=== PATIENT | male | born 1950 | race Caucasian/White ===

== ENCOUNTER → 2017-06-05 09:00 | Day surgery (SDC) | payer BC, OTHER, SELFPAY ==
[2017-06-05 09:16] VITALS: BP 119/77; PULSE 81; RESP 18; TEMP 36.6; O2SAT 96; BMI 33.0
--- NOTE | 2017-06-05 09:52 | HMH.PMPROC ---
- Procedure Date: 06/05/17 Time: 09:52 Anesthesiologist:: Celio Malloy MD Complications:: None Pre-procedure Diagnosis:: Degenerative disc disease of lumbar spine with lumbar radiculopathy symptoms Post-procedure Diagnosis:: Same Indications for Procedure:: This patient is a pleasant 67-year-old white male who we are seeing for low back pain with lumbar radicular symptoms. 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 We will do a lumbar epidural steroid injection under fluoroscopy today. Procedure Details:: Lumbar epidural steroid injection under fluoroscopy Informed consent was obtained and the risk and benefits of the procedure was explained to the patient. The patient was taken to the procedure room. The patient was placed prone on the procedure table. The patient was prepped and draped in sterile fashion. C-arm fluoroscopy was used to view the lumbar spine. Skin and subcutaneous tissues were anesthetized using lidocaine. I placed an 18-gauge epidural needle and advanced into the L4-L5 interspace using fluoroscopic guidance and [id number] to air. After confirmation of needle placement in the epidural space with dye I injected 2 mL of lidocaine 1.5% with Depo-Medrol 80 mg. Patient tolerated the procedure well with no complications. Plan and Disposition:: We will follow-up with him in 2 weeks. We will reevaluate his symptoms at that time
[2017-06-05 09:58] VITALS: BP 128/80; PULSE 77; RESP 20; O2SAT 95
[2017-06-05 09:59] VITALS: BP 131/78; PULSE 70; RESP 20; O2SAT 98
--- NOTE | 2017-06-05 10:08 | P.PCN_ITS ---
- Procedure Date: 06/05/17 Time: 09:52 Anesthesiologist:: Celio Malloy MD Complications:: None Pre-procedure Diagnosis:: Degenerative disc disease of lumbar spine with lumbar radiculopathy symptoms Post-procedure Diagnosis:: Same Indications for Procedure:: This patient is a pleasant 67-year-old white male who we are seeing for low back pain with lumbar radicular symptoms. 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 We will do a lumbar epidural steroid injection under fluoroscopy today. Procedure Details:: Lumbar epidural steroid injection under fluoroscopy Informed consent was obtained and the risk and benefits of the procedure was explained to the patient. The patient was taken to the procedure room. The patient was placed prone on the procedure table. The patient was prepped and draped in sterile fashion. C-arm fluoroscopy was used to view the lumbar spine. Skin and subcutaneous tissues were anesthetized using lidocaine. I placed an 18-gauge epidural needle and advanced into the L4-L5 interspace using fluoroscopic guidance and [id number] to air. After confirmation of needle placement in the epidural space with dye I injected 2 mL of lidocaine 1.5 % with Depo-Medrol 80 mg. Patient tolerated the procedure well with no complications. Plan and Disposition:: We will follow-up with him in 2 weeks. We will reevaluate his symptoms at that time
[2017-06-05 10:11] VITALS: BP 121/72; PULSE 88; RESP 18; O2SAT 100
== END ==
PROVIDERS: Family Provider Emergency Medicine; PCP Emergency Medicine; Visit Provider Nurse Anesthetist, Certified Registered
DX: M51.16 Intervertebral disc disorders with radiculopathy, lumbar region (principal)
CPT/HCPCS: 62323; J1040; Q9966

== ENCOUNTER 2017-06-16 10:27 | Emergency (ER) | payer BC, OTHER, SELFPAY ==
[2017-06-16 10:28] VITALS: BP 156/80; PULSE 76; RESP 18; TEMP 36.6; O2SAT 95; BMI 34.4; BMI 34.5
--- NOTE | 2017-06-16 10:29 | CT_ITS ---
CT Request head HISTORY: Right-sided facial droop ITS.REASON: stroke protocol, R facial droop ORDERING PHYSICIAN: Sindy Alba MD PATIENT AGE: 67 years COMPARISON: None TECHNIQUE: Axial images obtained without contrast. Brain and bone windows reviewed. FINDINGS: No midline shift, mass effect, intracranial hemorrhage, hydrocephalus, or extra-axial fluid collection is evident. Lucent lesion in the right posterior aspect of the frontal bone well-circumscribed probably benign. Follow-up may confirm stability. May represent, venous tuttle. No mastoid effusion. No sinus air-fluid levels.. IMPRESSION: 1. No acute intracranial finding. 2. There is no evidence of intracranial hemorrhage, focal mass, or acute territorial infarction. A negative CT does not exclude an acute CVA. A follow-up head CT or MRI is recommended if neurological symptoms persist
--- NOTE | 2017-06-16 10:29 | PC.NURSE ---
rad notified of ct head stroke protocol.
--- NOTE | 2017-06-16 10:32 | PC.NURSE ---
fsbs 94
--- NOTE | 2017-06-16 10:32 | PC.NURSE ---
pt to ct
--- NOTE | 2017-06-16 10:48 | PC.NURSE ---
contacted second floor to check on status of bed availability, stated no bed available at this time, having pt to discharge but none have left yet.
--- NOTE | 2017-06-16 10:49 | PC.NURSE ---
pt return to room at this time
[2017-06-16 10:56] VITALS: BP 133/87; PULSE 77; RESP 18; O2SAT 97
--- NOTE | 2017-06-16 11:00 | PC.NURSE ---
TESSA BOWENS at assessing pt at this time.
[2017-06-16 11:13] LABS: Alanine Aminotransferase 74 U/L (12-78); Albumin Level 3.5 gm/dL (3.4-5.0); Albumin/Globulin Ratio 0.9 (1.1-1.8); Alkaline Phosphatase 76 U/L (46-116); Anion Gap 11.1 mEq/L (5-15); Aspartate Amino Transferase 22 U/L (15-37); Bilirubin,Total 0.6 mg/dL (0.2-1.0); Blood Urea Nitrogen 30 mg/dL (7-18); Calcium 8.8 mg/dL (8.5-10.1); Carbon Dioxide 29 mmol/L (21.0-32.0); Chloride 103 mmol/L (98-107); Creatinine Clearance Estimated 94 mL/min (0-300); Creatinine,Serum 1.06 mg/dL (0.70-1.30); Estimated Glomerular Filt Rate 70 ml/min (>60); GFR (African American) 85 ML/MIN (>60); Globulin 3.8 gm/dl (1.3-3.2); Glucose 105 mg/dL (74-106); Potassium 4.1 mmoL/L (3.5-5.1); Sodium 139 mmol/L (136-145); Total Protein,Serum 7.3 gm/dL (6.4-8.2)
--- NOTE | 2017-06-16 11:15 | HMH.EDAMS ---
ED Disposition Clinical Impression: TIA (transient ischemic attack), Anterograde amnesia, Hypertension Disposition: Xfer Short-Term Hosp Condition on Discharge: Good Referrals: Bird Whitten MD [Primary Care Provider] - - Critical Care Critical Care Time: No Attestation: On 06/16/17, the high probability of a clinically significant, sudden or life threatening deterioration of the following system(s) required my full and direct attention, intervention and personal management. The time I documented below is in addition to time spent performing reported procedures but includes the following listed in this critical care notation. Medical Decision Making - Medical Records Medical records reviewed: Yes: I reviewed the patient's medical records. Vital Signs: 06/16/17 10:28 06/16/17 10:56 06/16/17 11:55 Temperature 97.8 F Temperature Source Oral Pulse Rate [Right Brachial] 76 77 72 Respiratory Rate 18 18 18 Blood Pressure [Right Arm] 156/80 133/87 141/87 Blood Pressure Mean [Right Arm] 105 102 105 Blood Pressure Source [Right Arm] Automatic Cuff Automatic Cuff Automatic Cuff Blood Pressure Position [Right Arm] Sitting Sitting Sitting 02 Sat by Pulse Oximetry 95 97 95 Oxygen Delivery Method Room Air Room Air Room Air 06/16/17 12:30 Temperature Temperature Source Pulse Rate [Right Brachial] 81 Respiratory Rate 18 Blood Pressure [Right Arm] 142/85 Blood Pressure Mean [Right Arm] 104 Blood Pressure Source [Right Arm] Automatic Cuff Blood Pressure Position [Right Arm] Sitting 02 Sat by Pulse Oximetry 94 L Oxygen Delivery Method Room Air - Lab Data Lab Results 06/16/17 10:40: WBC 11.8 H, RBC 5.28, Hgb 16.3, Hct 47.3, MCV 89.6, MCH 30.8, MCHC 34.4, RDW 13.1, Plt Count 217, MPV 8.5, Neut % (Auto) 79.5, Lymph % (Auto) 13.7, [place] % (Auto) 6.5, Eos % (Auto) 0.1, Baso % (Auto) 0.1, Neut # (Auto) 9.4 H, Lymph # (Auto) 1.6, [place] # (Auto) 0.8, Eos # (Auto) 0.0, Baso # (Auto) 0.0 06/16/17 10:40: Sodium 139, Potassium 4.1, Chloride 103, Carbon Dioxide 29, Anion Gap 11.1, BUN 30 H, Creatinine 1.06, Estimated Creat Clear 94, Estimated GFR 70, Est GFR ( Amer) 85, Glucose 105, Calcium 8.8, Total Bilirubin 0.6, AST 22, ALT 74, Alkaline Phosphatase 76, Total Protein 7.3, Albumin 3.5, Globulin 3.8 H, Albumin/Globulin Ratio 0.9 L 06/16/17 10:40: D-Dimer 102 06/16/17 10:40: Total Creatine Kinase 66, CK-MB (CK-2) 1.7, CK-MB (CK-2) Rel Index 2.6, Troponin I < 0.02 06/16/17 : Plasma/Serum Alcohol 0 Result diagrams: 06/16/17 10:40 06/16/17 10:40 Orders (Tests/Meds): ED MEDICATIONS Discontinued Medications Generic Name Dose Route Start Last Admin Trade Name Freq PRN Reason Stop Dose Admin Aspirin 324 mg 06/16/17 12:06 06/16/17 12:07 Aspirin 81mg Chewable Tablet PO 06/16/17 12:07 324 mg ONCE ONE Administration Sodium Chloride 1,000 mls @ 999 mls/hr 06/16/17 11:45 06/16/17 11:52 Sod Chlor 0.9% 1000ml Bag IV 06/16/17 12:45 999 mls/hr .Q1H1M [id number] Administration ORDERS Category Date Time Status CT head/brain wo con Routine Cat Scan 06/16/17 10:38 Taken Drug Screen,Urine Stat Lab 06/16/17 11:05 Ordered POC Glucose,Bedside Stat Lab 06/16/17 10:31 Ordered - CT Data CT Scan: Head Time Received: 11:[address] Reviewed: Yes: I have viewed the radiologist's interpretation Preliminary Findings: Normal/NAD Findings Narrative: MPRESSION: 1. No acute intracranial finding. 2. There is no evidence of intracranial hemorrhage, focal mass, or acute territorial infarction. A negative CT does not exclude an acute CVA. A follow-up head CT or MRI is recommended if neurological symptoms persist - Boo Inquiry Pt receiving controlled substance: No Boo was queried for this patient: No Medical Decision Making Narrative: Normal sinus rhythm 67/min baseline artifact nonspecific T-wave changes no acute finding. I did do another neurological reexamine for Mr. Lorenz, he remai
--- NOTE | 2017-06-16 11:18 | ED_ITS ---
ED Disposition Clinical Impression: TIA (transient ischemic attack), Anterograde amnesia, Hypertension Disposition: Xfer Short-Term Hosp Condition on Discharge: Good Referrals: Bird Whitten MD [Primary Care Provider] - - Critical Care Critical Care Time: No Attestation: On 06/16/17, the high probability of a clinically significant, sudden or life threatening deterioration of the following system(s) required my full and direct attention, intervention and personal management. The time I documented below is in addition to time spent performing reported procedures but includes the following listed in this critical care notation. Medical Decision Making - Medical Records Medical records reviewed: Yes: I reviewed the patient's medical records. Vital Signs: 06/16/17 10:28 06/16/17 10:56 06/16/17 11:55 Temperature 97.8 F Temperature Source Oral Pulse Rate [Right Brachial] 76 77 72 Respiratory Rate 18 18 18 Blood Pressure [Right Arm] 156/80 133/87 141/87 Blood Pressure Mean [Right Arm] 105 102 105 Blood Pressure Source [Right Arm] Automatic Cuff Automatic Cuff Automatic Cuff Blood Pressure Position [Right Arm] Sitting Sitting Sitting 02 Sat by Pulse Oximetry 95 97 95 Oxygen Delivery Method Room Air Room Air Room Air 06/16/17 12:30 Temperature Temperature Source Pulse Rate [Right Brachial] 81 Respiratory Rate 18 Blood Pressure [Right Arm] 142/85 Blood Pressure Mean [Right Arm] 104 Blood Pressure Source [Right Arm] Automatic Cuff Blood Pressure Position [Right Arm] Sitting 02 Sat by Pulse Oximetry 94 L Oxygen Delivery Method Room Air - Lab Data Lab Results 06/16/17 10:40: WBC 11.8 H, RBC 5.28, Hgb 16.3, Hct 47.3, MCV 89.6, MCH 30.8, MCHC 34.4, RDW 13.1, Plt Count 217, MPV 8.5, Neut % (Auto) 79.5, Lymph % (Auto) 13.7, [place] % (Auto) 6.5, Eos % (Auto) 0.1, Baso % (Auto) 0.1, Neut # (Auto) 9.4 H, Lymph # (Auto) 1.6, [place] # (Auto) 0.8, Eos # (Auto) 0.0, Baso # (Auto) 0.0 06/16/17 10:40: Sodium 139, Potassium 4.1, Chloride 103, Carbon Dioxide 29, Anion Gap 11.1, BUN 30 H, Creatinine 1.06, Estimated Creat Clear 94, Estimated GFR 70, Est GFR ( Amer) 85, Glucose 105, Calcium 8.8, Total Bilirubin 0.6 , AST 22, ALT 74, Alkaline Phosphatase 76, Total Protein 7.3, Albumin 3.5, Globulin 3.8 H, Albumin/Globulin Ratio 0.9 L 06/16/17 10:40: D-Dimer 102 06/16/17 10:40: Total Creatine Kinase 66, CK-MB (CK-2) 1.7, CK-MB (CK-2) Rel Index 2.6, Troponin I < 0.02 06/16/17 : Plasma/Serum Alcohol 0 Result diagrams: 06/16/17 10:40 06/16/17 10:40 Orders (Tests/Meds): ED MEDICATIONS Discontinued Medications Generic Name Dose Route Start Last Admin Trade Name Freq PRN Reason Stop Dose Admin Aspirin 324 mg 06/16/17 12:06 06/16/17 12:07 Aspirin 81mg Chewable Tablet PO 06/16/17 12:07 324 mg ONCE ONE Administration Sodium Chloride 1,000 mls @ 999 mls/hr 06/16/17 11:45 06/16/17 11:52 Sod Chlor 0.9% 1000ml Bag IV 06/16/17 12:45 999 mls/hr .Q1H1M ZULEIKA Administration ORDERS Category Date Time Status CT head/brain wo con Routine Cat Scan 06/16/17 10:38 Taken Drug Screen,Urine Stat Lab 06/16/17 11:05 Ordered POC Glucose,Bedside Stat Lab 06/16/17 10:31 Ordered - CT Data CT Scan: Head
[2017-06-16 11:54] LABS: Basophils % 0.1 % (0.1-2.0); Eosinophils % 0.1 % (0.1-12.0); Hematocrit 47.3 % (42.0-52.0); Hemoglobin 16.3 g/dL (14.1-18.0); Lymphocytes # 1.6 K/mm3 (0.7-4.5); Lymphocytes % 13.7 K/mm3 (10-50); Mean Corpuscular HGB Conc 34.4 g/dL (31.8-35.4); Mean Corpuscular Hemoglobin 30.8 pg (27.0-31.2); Mean Corpuscular Volume 89.6 fl (80-94); Mean Platelet Volume 8.5 fl (7.4-10.4); Monocytes # 0.8 K/mm3 (0.1-1.0); Monocytes % 6.5 % (1.7-9.3); Neutrophils # 9.4 K/mm3 (1.8-7.8); Neutrophils % 79.5 % (37.0-80.0); Platelet Count 217 K/mm3 (142-424); Red Blood Count 5.28 M/mm3 (4.60-6.20); Red Cell Distribution Width 13.1 % (11.5-17.5); White Blood Count 11.8 K/mm3 (4.8-10.8)
[2017-06-16 11:55] VITALS: BP 141/87; PULSE 72; RESP 18; O2SAT 95
[2017-06-16 11:58] LABS: D-Dimer 102 (0-400)
[2017-06-16 11:59] LABS: Ethyl Alcohol 0 mg/dL (0-99)
[2017-06-16 11:59] LABS: CKMB Relative Index 2.6 U/L (0-4.0); Creatine Kinase 66 U/L (39-308); Creatine Kinase MB 1.7 mg/ml (0.0-3.6); Troponin I < 0.02 ng/ml (0.00-0.06)
[2017-06-16 12:30] VITALS: BP 142/85; PULSE 81; RESP 18; O2SAT 94
--- NOTE | 2017-06-16 13:55 | PC.NURSE ---
Attempted to contact Dr. Whitten at his office, office staff states MD is at the hospital for a meeting. Notified ER .
--- NOTE | 2017-06-16 14:02 | PC.NURSE ---
ER contacting MDs
--- NOTE | 2017-06-16 14:05 | PC.NURSE ---
TESSA BOWENS spoke with Dr. Whitten at this time, per ER MD will continue to attempt transfer to [facility] for neurological evaluation. TESSA BOWENS on hold with [facility] MDs at this time.
--- NOTE | 2017-06-16 14:14 | PC.NURSE ---
TESSA BOWENS spoke with Dr. Enrique, [facility], accepted pt to [facility]
--- NOTE | 2017-06-16 14:34 | PC.NURSE ---
report called to REZA Selby at ER at this time
--- NOTE | 2017-06-16 14:45 | PC.NURSE ---
verbal report given to [facility] at this time.
[2017-06-16 14:46] VITALS: BP 142/87; PULSE 88; RESP 18; TEMP 37.2; O2SAT 97
[2017-06-23 14:59] LABS: POC Glucose,Bedside 94 mg/dL (70-110)
== END 2017-06-16 14:47 | disposition short-term general hospital (02) ==
PROVIDERS: Emergency Provider Emergency Medicine; Family Provider Emergency Medicine; PCP Emergency Medicine
DX: G45.8 Other transient cerebral ischemic attacks and related syndromes (principal); Z88.0 Allergy status to penicillin; Z88.6 Allergy status to analgesic agent; I10 Essential (primary) hypertension; R29.810 Facial weakness
CPT/HCPCS: 70450; 80053; 82550; 82553; 82962; 84484; 85025; 85378; 93005; 93041; 96365; 99285

== ENCOUNTER → 2017-06-18 12:51 | Outpatient (POV) | payer BC, OTHER, SELFPAY | PROVIDERS: Family Provider Emergency Medicine; PCP Emergency Medicine; Visit Provider Neurological Surgery | DX: Z00.00 Encounter for general adult medical examination without abnormal findings (principal) ==

== ENCOUNTER → 2017-06-22 09:40 | Outpatient (REF) | payer BC, OTHER, SELFPAY ==
[2017-06-22 14:40] LABS: Hemoglobin A1C 5.7 % (0.0-7.0)
== END ==
LOC: LAB 09:40
PROVIDERS: Visit Provider Emergency Medicine
DX: I99.8 Other disorder of circulatory system (principal)
CPT/HCPCS: 83036

== ENCOUNTER 2017-08-02 09:55 | Emergency (ER) | payer BC, OTHER, SELFPAY ==
[2017-08-02 10:08] VITALS: BP 108/77; PULSE 95; RESP 16; TEMP 36.8; O2SAT 96; BMI 32.7
--- NOTE | 2017-08-02 10:18 | HMH.EDUTC ---
[facility] – [place] Disposition Clinical Impression: Diarrhea Qualifiers: Diarrhea type: unspecified type Qualified Code(s): R19.7 - Diarrhea, unspecified Disposition: Home, Self-Care Condition on Discharge: Good Instructions: Diarrhea, Loperamide, Diarrhea (Alternative Therapy), Diarrhea (Alternative Therapy) Additional Instructions: ? Drink extra fluids with and between meals. If you have difficulty drinking, try very small amounts of water or suck on ice chips. ? Avoid fruit juices, as these do not replace minerals and can actually increase diarrhea. ? Children and adults can use sports drinks to replenish electrolytes. Younger children and infants should use products formulated for children, like oral rehydration solutions. ? Eat food in small amounts and let your stomach recover. ? Get lots of rest. You may feel tired or weak. For the next 24hours make sure to drink plenty of Gatoraid to replenish lost fluids due to diarrhea. Dry toast and rice to allow for stomach rest then progress to dry toast, bananas or rice and slowly transition back to foods. Nothing greasy nothing fried Follow up with family doctor tomorrow If any life threatening symptoms or worsening of symptoms go straight to ER Make sure to collect stool specimen and bring back to lab then follow up with family doctor tomorrow for results and further treatment Return if needed Over the counter Immodium after collecting specimen Any signs of dehydration, severe dry mouth, no tears etc straight to ER Referrals: Maddie Perdomo APRN [Primary Care Provider] - Forms: Work/School Release Time of Disposition: 10:33 Medical Decision Making - Medical Records Medical records reviewed: Yes: I reviewed the patient's medical records. - Boo Inquiry Pt receiving controlled substance: No Boo was queried for this patient: No Vital Signs: 08/02/17 10:08 Temperature 98.3 F Temperature Source Temporal Artery Scan Pulse Rate [Right Radial] 95 H Respiratory Rate 16 Blood Pressure [Right Arm] 108/77 Blood Pressure Mean [Right Arm] 87 02 Sat by Pulse Oximetry 96 Oxygen Delivery Method Room Air - Reevaluation(s) Time: 10:26 Reevaluation #1: Patient no eppisodes of loose stool while in the [facility] today Patient was given outpatient order for diarrhea panel and advised to collect specimen and bring it back to lab for analysis and results to be sent to family doctor. Patient advised to take Immodium and no food for next 24hr to allow stomach to rest. Patient informed to stop and buy some Gatoraid and for the next 24 hours drink Gatoraid to replinesh the body of fluids and electrolytes and then eat dry toast and rice and slowly progress to food. Also advised him to follow up with family doctor for results [facility] – [place] HPI - General Stated complaint: diarrhea for 5 days Time Seen by Provider: 08/02/17 10:20 Mode of Arrival: Family Vehicle Source of Information: Patient Limitations: No Limitations Description of Symptoms (Recalled from Triage Doc. by RN): pt c/o diarrhea for 5 days. pt has been taking lomotil last dose was last night at 10 pm. HEENT Symptoms (Recalled from RN notes): No Resp Symptoms (Recalled from RN notes): No Skin Symptoms (Recalled from RN notes): No MS Symptoms (Recalled from RN notes): No Functional Status (Recalled from RN notes): na - History of Present Illness Provider Complaint: Patient state that he has had diarrhea for about 5 days now State that he has taken Lomitol but it hasn't helped that much State that he is not having any other symptoms No nausea or vomiting just the diarrhea and thinks he may have a stomach virus. State that he has been having about 3-4 loose stools a day but he has made sure to drink plenty of fluids to try to replace his liquids - Related Data Home Medications Medication Instructions Recorded Confirmed pravastatin 80 mg tablet 80 mg PO QHS 06/09/17 06/16/17 testosterone cypionate 200 mg/mL 200 mg IM Q4W 06/09/17 06/16/17 in
--- NOTE | 2017-08-02 10:22 | ED_ITS ---
[facility] – [place] Disposition Clinical Impression: Diarrhea Qualifiers: Diarrhea type: unspecified type Qualified Code(s): R19.7 - Diarrhea, unspecified Disposition: Home, Self-Care Condition on Discharge: Good Instructions: Diarrhea, Loperamide, Diarrhea (Alternative Therapy), Diarrhea ( Alternative Therapy) Additional Instructions: ? Drink extra fluids with and between meals. If you have difficulty drinking, try very small amounts of water or suck on ice chips. ? Avoid fruit juices, as these do not replace minerals and can actually increase diarrhea. ? Children and adults can use sports drinks to replenish electrolytes. Younger children and infants should use products formulated for children, like oral rehydration solutions. ? Eat food in small amounts and let your stomach recover. ? Get lots of rest. You may feel tired or weak. For the next 24hours make sure to drink plenty of Gatoraid to replenish lost fluids due to diarrhea. Dry toast and rice to allow for stomach rest then progress to dry toast, bananas or rice and slowly transition back to foods. Nothing greasy nothing fried Follow up with family doctor tomorrow If any life threatening symptoms or worsening of symptoms go straight to ER Make sure to collect stool specimen and bring back to lab then follow up with family doctor tomorrow for results and further treatment Return if needed Over the counter Immodium after collecting specimen Any signs of dehydration, severe dry mouth, no tears etc straight to ER Referrals: Maddie Perdomo APRN [Primary Care Provider] - Forms: Work/School Release Time of Disposition: 10:33 Medical Decision Making - Medical Records Medical records reviewed: Yes: I reviewed the patient's medical records. - Boo Inquiry Pt receiving controlled substance: No Boo was queried for this patient: No Vital Signs: 08/02/17 10:08 Temperature 98.3 F Temperature Source Temporal Artery Scan Pulse Rate [Right Radial] 95 H Respiratory Rate 16 Blood Pressure [Right Arm] 108/77 Blood Pressure Mean [Right Arm] 87 02 Sat by Pulse Oximetry 96 Oxygen Delivery Method Room Air - Reevaluation(s) Time: 10:26 Reevaluation #1: Patient no eppisodes of loose stool while in the [facility] today Patient was given outpatient order for diarrhea panel and advised to collect specimen and bring it back to lab for analysis and results to be sent to family doctor. Patient advised to take Immodium and no food for next 24hr to allow stomach to rest. Patient informed to stop and buy some Gatoraid and for the next 24 hours drink Gatoraid to replinesh the body of fluids and electrolytes and then eat dry toast and rice and slowly progress to food. Also advised him to follow up with family doctor for results [facility] – [place] HPI - General Stated complaint: diarrhea for 5 days Time Seen by Provider: 08/02/17 10:20 Mode of Arrival: Family Vehicle Source of Information: Patient Limitations: No Limitations Description of Symptoms (Recalled from Triage Doc. by RN): pt c/o diarrhea for 5 days. pt has been taking lomotil last dose was last night at 10 pm. HEENT Symptoms (Recalled from RN notes): No Resp Symptoms (Recalled from RN notes): No Skin Symptoms (Recalled from RN notes): No MS Symptoms (Recalled from RN notes): No Functional Status (Recalled from RN notes): na - History of Present Illness Provider Complaint: Patient state that he has had diarrhea for about 5 days now State that he has taken Lomitol but it hasn't helped that much State that he is
[2017-08-02 10:37] VITALS: BP 110/82; PULSE 87; RESP 18; TEMP 36.9; O2SAT 97
[2017-08-02 14:49] LABS: Adenovirus F 40/41, stool Not Detected (NotDetected); Astrovirus Not Detected (NotDetected); Campylobacter Not Detected (NotDetected); Clostridium Difficile A/B, PCR Not Detected (NotDetected); Cryptosporidium Not Detected (NotDetected); Cyclospora Cayetanesis Not Detected (NotDetected); Entamoeba histolytica Not Detected (NotDetected); Enteroaggregative E coli Not Detected (NotDetected); Enteropathogenic E coli Not Detected (NotDetected); Enterotoxigenic E coli Not Detected (NotDetected); Giardia lamblia Not Detected (NotDetected); Norovirus Not Detected (NotDetected); Plesimonas Shigalloides, PCR Not Detected (NotDetected); Rotavirus A Not Detected (NotDetected); Salmonella, PCR Not Detected (NotDetected); Sapovirus Not Detected (NotDetected); Shiga-like toxin E coli Not Detected (NotDetected); Shigella Enterovasive E coli Not Detected (NotDetected); Vibrio Cholerae Not Detected (NotDetected); Vibrio, PCR Not Detected (NotDetected); Yersinia Entercolitica, PCR Not Detected (NotDetected)
== END 2017-08-02 10:39 | disposition home or self-care (01) ==
PROVIDERS: Emergency Provider Nurse Practitioner; Family Provider Emergency Medicine; PCP Nurse Practitioner Family
DX: R19.7 Diarrhea, unspecified (principal); G45.8 Other transient cerebral ischemic attacks and related syndromes; I10 Essential (primary) hypertension; E78.5 Hyperlipidemia, unspecified
CPT/HCPCS: 87507; 99201

== ENCOUNTER → 2017-08-03 10:32 | Outpatient (CLI) | payer BC, OTHER, SELFPAY ==
--- NOTE | 2017-08-03 10:46 | XR_ITS ---
XR foot LT min 3V COMPARISON: None HISTORY: Left foot pain TECHNIQUE: AP lateral and oblique views FINDINGS: The tarsal bones metatarsals and phalanges all appear intact with no evidence of recent or old fracture. The plantar arch is normal. There are small spurs of the calcaneus at the insertion of Achilles tendon and plantar tendon. The soft tissues are normal. IMPRESSION: Minor calcaneal spurs otherwise negative left foot
[2017-08-03 10:50] LABS: Basophils % 0.2 % (0.1-2.0); Eosinophils # 0.3 K/mm3 (0.0-0.4); Eosinophils % 3.2 % (0.1-12.0); Hematocrit 42.1 % (42.0-52.0); Hemoglobin 14.3 g/dL (14.1-18.0); Lymphocytes # 1.6 K/mm3 (0.7-4.5); Lymphocytes % 19.7 K/mm3 (10-50); Mean Corpuscular HGB Conc 33.9 g/dL (31.8-35.4); Mean Corpuscular Hemoglobin 31.7 pg (27.0-31.2); Mean Corpuscular Volume 93.6 fl (80-94); Mean Platelet Volume 8.5 fl (7.4-10.4); Monocytes # 0.8 K/mm3 (0.1-1.0); Monocytes % 9.9 % (1.7-9.3); Neutrophils # 5.3 K/mm3 (1.8-7.8); Platelet Count 176 K/mm3 (142-424); Red Cell Distribution Width 13.1 % (11.5-17.5); White Blood Count 7.9 K/mm3 (4.8-10.8)
[2017-08-03 11:01] LABS: Alanine Aminotransferase 24 U/L (12-78); Albumin Level 3.3 gm/dL (3.4-5.0); Albumin/Globulin Ratio 0.9 (1.1-1.8); Alkaline Phosphatase 74 U/L (46-116); Anion Gap 10.6 mEq/L (5-15); Aspartate Amino Transferase 15 U/L (15-37); Bilirubin,Total 0.5 mg/dL (0.2-1.0); Blood Urea Nitrogen 23 mg/dL (7-18); Calcium 8.9 mg/dL (8.5-10.1); Carbon Dioxide 30 mmol/L (21.0-32.0); Chloride 104 mmol/L (98-107); Creatinine,Serum 1.12 mg/dL (0.70-1.30); Estimated Glomerular Filt Rate 66 ml/min (>60); GFR (African American) 79 ML/MIN (>60); Globulin 3.8 gm/dl (1.3-3.2); Glucose 104 mg/dL (74-106); Potassium 4.6 mmoL/L (3.5-5.1); Sodium 140 mmol/L (136-145); Total Protein,Serum 7.1 gm/dL (6.4-8.2)
[2017-08-03 13:19] LABS: Erythrocyte Sedimentation Rate 44 mm/hr (0-20)
== END ==
PROVIDERS: Visit Provider Emergency Medicine
DX: R19.7 Diarrhea, unspecified (principal); M79.672 Pain in left foot
CPT/HCPCS: 36415; 73630; 80053; 85025; 85651

== ENCOUNTER → 2017-08-10 08:53 | Outpatient (POV) | payer BC, OTHER, SELFPAY ==
[2017-08-10 10:37] LABS: Adenovirus F 40/41, stool Not Detected (NotDetected); Astrovirus Not Detected (NotDetected); Campylobacter Not Detected (NotDetected); Clostridium Difficile A/B, PCR Not Detected (NotDetected); Cryptosporidium Not Detected (NotDetected); Cyclospora Cayetanesis Not Detected (NotDetected); Entamoeba histolytica Not Detected (NotDetected); Enteroaggregative E coli Not Detected (NotDetected); Enteropathogenic E coli Not Detected (NotDetected); Enterotoxigenic E coli Not Detected (NotDetected); Giardia lamblia Not Detected (NotDetected); Norovirus Not Detected (NotDetected); Plesimonas Shigalloides, PCR Not Detected (NotDetected); Rotavirus A Not Detected (NotDetected); Salmonella, PCR Not Detected (NotDetected); Sapovirus Not Detected (NotDetected); Shiga-like toxin E coli Not Detected (NotDetected); Shigella Enterovasive E coli Not Detected (NotDetected); Vibrio Cholerae Not Detected (NotDetected); Vibrio, PCR Not Detected (NotDetected); Yersinia Entercolitica, PCR Not Detected (NotDetected)
[2017-08-13 15:55] LABS: Lactoferrin, Fecal, Quant. <1.00 ug/mL(g) (0.00-7.24)
== END ==
PROVIDERS: Family Provider Emergency Medicine; PCP Nurse Practitioner Family; Visit Provider Nurse Practitioner Acute Care
DX: R19.7 Diarrhea, unspecified (principal)
CPT/HCPCS: 83630; 87507

== ENCOUNTER → 2017-08-11 09:40 | Outpatient (POV) | payer BC, OTHER, SELFPAY ==
[2017-08-11 09:59] VITALS: BP 115/73; PULSE 86; RESP 18; TEMP 36.6; O2SAT 97; BMI 32.7
--- NOTE | 2017-08-11 10:43 | HMH.PAINSOAP ---
[facility] Pain Management SOAP Note Subjective:: Patient is a pleasant 67-year-old white male who presents today for elbow up after an L4-L5 lumbar epidural steroid injection. Patient is doing very well stating that he has had 80-90% relief of his pain symptoms. Patient states his pain today is a 1 out of 10. It is allowed him to be more functional and continue to work. Patient states he is having some twinges of pain that return intermittently And he is interested in another injection. ROS General: no recent weight change, no fever, no sleep disturbances Respiratory: no cough, no shortness of air, no recurring pulmonary infections Cardiovascular/Peripheral Vascular: No chest pain, No palpitations, no edema, no shortness of breath. Gastrointestinal: States he is having some bowel problems that he is wanting to talk to his primary care about Genitourinary: no incontinence Musculoskeletal: Back pain Psychiatric: normal mood/ affect, [denies depression], [denies anxiety] Neurological: [denies weakness in extremities], [denies balance issues] Objective:: Physical Exam General: Alert and oriented x3, no acute distress, pleasant and cooperative, [on room air] Lungs: Resps E/U, Symmetrical chest expansion, Eyes: PERRL Musculoskeletal: Flexion and extension of lumbar spine somewhat guarded secondary to pain, deep tendon reflexes normal, strength in upper and lower extremities [5/5], normal gait noted, positive straight leg test bilaterally at 30? Neurological: speech clear, brand specialist equal, no gross sensory deficits Assessment:: Degenerative disc disease of the lumbar spine with lumbar radiculopathy Plan:: We will set her L4-L5 lumbar epidural steroid injection. 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 He is doing a home stretching program and continuing to work. This note was dictated using voice recognition software and may contain errors or omissions
--- NOTE | 2017-08-11 10:46 | P.CONS_ITS ---
[facility] Pain Management SOAP Note Subjective:: Patient is a pleasant 67-year-old white male who presents today for elbow up after an L4-L5 lumbar epidural steroid injection. Patient is doing very well stating that he has had 80-90% relief of his pain symptoms. Patient states his pain today is a 1 out of 10. It is allowed him to be more functional and continue to work. Patient states he is having some twinges of pain that return intermittently And he is interested in another injection. ROS General: no recent weight change, no fever, no sleep disturbances Respiratory: no cough, no shortness of air, no recurring pulmonary infections Cardiovascular/Peripheral Vascular: No chest pain, No palpitations, no edema, no shortness of breath. Gastrointestinal: States he is having some bowel problems that he is wanting to talk to his primary care about Genitourinary: no incontinence Musculoskeletal: Back pain Psychiatric: normal mood/ affect, [denies depression], [denies anxiety] Neurological: [denies weakness in extremities], [denies balance issues] Objective:: Physical Exam General: Alert and oriented x3, no acute distress, pleasant and cooperative, [ on room air] Lungs: Resps E/U, Symmetrical chest expansion, Eyes: PERRL Musculoskeletal: Flexion and extension of lumbar spine somewhat guarded secondary to pain, deep tendon reflexes normal, strength in upper and lower extremities [5/5], normal gait noted, positive straight leg test bilaterally at 30? Neurological: speech clear, furnace brazer equal, no gross sensory deficits Assessment:: Degenerative disc disease of the lumbar spine with lumbar radiculopathy Plan:: We will set her L4-L5 lumbar epidural steroid injection. Patient's tried and failed conservative treatments such as home care scheduler, physical therapy, NSAIDs. He is doing a home stretching program and continuing to work. This note was dictated using voice recognition software and may contain errors or omissions
== END ==
PROVIDERS: Family Provider Emergency Medicine; PCP Nurse Practitioner Family; Visit Provider Clinical Nurse Specialist Family Health
DX: M54.16 Radiculopathy, lumbar region (principal)
CPT/HCPCS: 99212

== ENCOUNTER → 2017-09-21 10:12 | Outpatient (POV) | payer BC, OTHER, SELFPAY ==
[2017-09-21 10:18] VITALS: BP 102/64; PULSE 98; RESP 20; O2SAT 97; BMI 32.8
--- NOTE | 2017-09-21 10:45 | HMH.PAINSOAP ---
[facility] Pain Management SOAP Note Subjective:: Patient is a pleasant 67-year-old white male who presents today for follow-up after lumbar epidural steroid injection. Patient states he is 80-90% better since his last injection. Patient states that his pain is a 3 out of 10 today. Patient would like to do a repeat epidural injection in about 2 months. I believe that this would be beneficial. Patient has been more active recently. Patient is gotten much better relief from his injections and increase functionality. Patient has tried and failed medications, anti-inflammatories, physical therapy in the past. ROS General: no recent weight change, no fever, no sleep disturbances Respiratory: no cough, no shortness of air, no recurring pulmonary infections Cardiovascular/Peripheral Vascular: No chest pain, No palpitations, no edema, no shortness of breath. Gastrointestinal: no incontinence, normal bowel movements reported Genitourinary: no incontinence Musculoskeletal: Back pain, leg pain Psychiatric: normal mood/ affect Neurological: [denies weakness in extremities], [denies balance issues] Objective:: Physical Exam General: Alert and oriented x3, no acute distress, pleasant and cooperative, [on room air] Lungs: Resps E/U, Symmetrical chest expansion, Eyes: PERRL Musculoskeletal: Flexion and extension of lumbar spine somewhat guarded secondary to pain, deep tendon reflexes normal, strength in upper and lower extremities [5/5], slightly antalgic gait noted, bilateral straight raise leg test at 30? Neurological: speech clear, investigative analyst equal, no gross sensory deficits Assessment:: Degenerative disc disease of the lumbar spine with lumbar radiculopathy symptoms Plan:: We will schedule a injection for the patient in 2 months. If patient is needing us prior to this will give us a phone call. Patient has done well with injections in the past. Patient's tried and failed other conservative measures such as physical therapy, medication, anti-inflammatories. Patient is not on any anticoagulation. This note was dictated using voice recognition software and may contain errors or omissions
--- NOTE | 2017-09-21 10:56 | P.CONS_ITS ---
[facility] Pain Management SOAP Note Subjective:: Patient is a pleasant 67-year-old white male who presents today for follow-up after lumbar epidural steroid injection. Patient states he is 80-90% better since his last injection. Patient states that his pain is a 3 out of 10 today. Patient would like to do a repeat epidural injection in about 2 months. I believe that this would be beneficial. Patient has been more active recently. Patient is gotten much better relief from his injections and increase functionality. Patient has tried and failed medications, anti-inflammatories, physical therapy in the past. ROS General: no recent weight change, no fever, no sleep disturbances Respiratory: no cough, no shortness of air, no recurring pulmonary infections Cardiovascular/Peripheral Vascular: No chest pain, No palpitations, no edema, no shortness of breath. Gastrointestinal: no incontinence, normal bowel movements reported Genitourinary: no incontinence Musculoskeletal: Back pain, leg pain Psychiatric: normal mood/ affect Neurological: [denies weakness in extremities], [denies balance issues] Objective:: Physical Exam General: Alert and oriented x3, no acute distress, pleasant and cooperative, [ on room air] Lungs: Resps E/U, Symmetrical chest expansion, Eyes: PERRL Musculoskeletal: Flexion and extension of lumbar spine somewhat guarded secondary to pain, deep tendon reflexes normal, strength in upper and lower extremities [5/5], slightly antalgic gait noted, bilateral straight raise leg test at 30? Neurological: speech clear, variety lathe operator equal, no gross sensory deficits Assessment:: Degenerative disc disease of the lumbar spine with lumbar radiculopathy symptoms Plan:: We will schedule a injection for the patient in 2 months. If patient is needing us prior to this will give us a phone call. Patient has done well with injections in the past. Patient's tried and failed other conservative measures such as physical therapy, medication, anti-inflammatories. Patient is not on any anticoagulation. This note was dictated using voice recognition software and may contain errors or omissions
== END ==
PROVIDERS: Family Provider Emergency Medicine; PCP Emergency Medicine; Visit Provider Clinical Nurse Specialist Family Health
DX: M54.16 Radiculopathy, lumbar region (principal)
CPT/HCPCS: 99212

== ENCOUNTER → 2017-11-16 09:36 | Outpatient (POV) | payer BC, OTHER, SELFPAY ==
[2017-11-16 11:16] LABS: Amylase 53 U/L (25-125); Lipase 44 u/L (73-393)
== END ==
PROVIDERS: Family Provider Emergency Medicine; PCP Emergency Medicine; Visit Provider Nurse Practitioner Acute Care
DX: R19.7 Diarrhea, unspecified (principal)
CPT/HCPCS: 36415; 82150; 83690

== ENCOUNTER → 2017-11-17 08:44 | Outpatient (CLI) | payer BC, OTHER, SELFPAY ==
[2017-11-25 06:14] LABS: Pancreatic Elastase, Fecal <50 (>200)
== END ==
PROVIDERS: Visit Provider Nurse Practitioner Acute Care
DX: R19.7 Diarrhea, unspecified (principal)
CPT/HCPCS: 82656

== ENCOUNTER → 2017-12-05 10:35 | Outpatient (CLI) | payer BC, OTHER, SELFPAY ==
[2017-12-05 10:57] LABS: Basophils # 0.1 K/mm3 (0-0.2); Basophils % 0.5 % (0.1-2.0); Eosinophils # 0.2 K/mm3 (0.0-0.4); Eosinophils % 2.5 % (0.1-12.0); Hematocrit 45.7 % (42.0-52.0); Hemoglobin 15.6 g/dL (14.1-18.0); Lymphocytes % 22.4 K/mm3 (10-50); Mean Corpuscular HGB Conc 34.1 g/dL (31.8-35.4); Mean Corpuscular Hemoglobin 31.8 pg (27.0-31.2); Mean Corpuscular Volume 93.4 fl (80-94); Mean Platelet Volume 8.4 fl (7.4-10.4); Monocytes # 0.7 K/mm3 (0.1-1.0); Monocytes % 8.1 % (1.7-9.3); Neutrophils # 5.8 K/mm3 (1.8-7.8); Neutrophils % 66.4 % (37.0-80.0); Platelet Count 176 K/mm3 (142-424); White Blood Count 8.7 K/mm3 (4.8-10.8)
[2017-12-05 12:29] LABS: Alanine Aminotransferase 56 U/L (12-78); Albumin Level 3.8 gm/dL (3.4-5.0); Albumin/Globulin Ratio 1.1 (1.1-1.8); Alkaline Phosphatase 90 U/L (46-116); Anion Gap 7.3 mEq/L (5-15); Aspartate Amino Transferase 21 U/L (15-37); Bilirubin,Total 0.3 mg/dL (0.2-1.0); Blood Urea Nitrogen 23 mg/dL (7-18); Calcium 9.2 mg/dL (8.5-10.1); Carbon Dioxide 32 mmol/L (21.0-32.0); Chloride 105 mmol/L (98-107); Chol/HDL Ratio 4.4 (1-3.5); Cholesterol 122 mg/dL (140-200); Creatinine,Serum 1.03 mg/dL (0.70-1.30); Estimated Glomerular Filt Rate 72 ml/min (>60); GFR (African American) 87 ML/MIN (>60); Globulin 3.4 gm/dl (1.3-3.2); Glucose 98 mg/dL (74-106); HDL Cholesterol 28 mg/dL (27-67); LDL Cholesterol 70 mg/dL (0-130); Potassium 4.3 mmoL/L (3.5-5.1); Sodium 140 mmol/L (136-145); Thyroid Stimulating Hormone 3.62 uIU/ml (0.358-3.740); Total Protein,Serum 7.2 gm/dL (6.4-8.2); Triglycerides 118 mg/dL (30-200); VLDL Cholesterol 24 mg/dL (0-40)
== END ==
PROVIDERS: Visit Provider Internal Medicine Adolescent Medicine
DX: Z00.00 Encounter for general adult medical examination without abnormal findings (principal)
CPT/HCPCS: 36415; 80053; 80061; 84443; 85025

== ENCOUNTER → 2017-12-07 11:12 | Outpatient (POV) | payer BC, OTHER, SELFPAY | PROVIDERS: Family Provider Emergency Medicine; PCP Emergency Medicine; Visit Provider Nurse Practitioner Acute Care | DX: Z00.00 Encounter for general adult medical examination without abnormal findings (principal) ==

== ENCOUNTER → 2017-12-14 08:34 | Outpatient (CLI) | payer BC, OTHER, SELFPAY ==
--- NOTE | 2017-12-14 08:38 | CT_ITS ---
CT abdomen wo/w con CLINICAL INDICATION: ITS.REASON: EXOCRINE PANCREATIC INSUFFICIENCY, PACREATITIS ORDERING PHYSICIAN: May Smith PATIENT AGE: 67 years COMPARISON: None TECHNIQUE: Axial images obtained without and with contrast with sagittal and coronal reformats. All CT scans at the facility use one or more dose reduction, viz: automated exposure control, ma/kV adjustment per patient size (including targeted exams where dose is matched to indication, i.e. head), or iterative reconstruction technique. PROCEDURE: Oral Contrast: None IV Contrast: 75 mL of Isovue-370. . FINDINGS: The exam was performed without and with contrast. Images obtained post contrast injection at 30 seconds, 60 seconds, and 10 minute delay. The liver, spleen, and adrenal glands have an unremarkable appearance. There is been prior cholecystectomy. No evidence of biliary dilatation There is diffuse pancreatic atrophy with fatty replacement of the body and tail the pancreas with multiple punctate calcifications noted within the body and tail. There is a lobular calcific density measuring 12 at the region of the distal common bile duct/ampulla which is suspicious for a common duct stone. Common bile duct proximal to this area however is not dilated. There is suggestion of some dilatation of the pancreatic duct in the head of the pancreas. MRI with MRCP is suggested for further evaluation and confirmation. Nonobstructing 2 mm stone is present in the mid aspect of the right kidney. No hydronephrosis. No intestinal obstruction or free air. IMPRESSION: 1. Diffuse atrophy and fatty replacement of the pancreatic body and tail with multiple punctate calcifications in the pancreas consistent with chronic pancreatitis. 2. 12 mm calcific density along the head of the pancreas inferiorly suspicious for a common bile duct stone or possibly distal pancreatic ductal stone as there appears to be mild dilatation of the duct in the head of the pancreas. Suggest MRCP for further evaluation.
== END ==
PROVIDERS: Family Provider Emergency Medicine; PCP Internal Medicine Adolescent Medicine; Visit Provider Nurse Practitioner Acute Care
DX: K86.81 Exocrine pancreatic insufficiency (principal); K85.90 Acute pancreatitis without necrosis or infection, unspecified
CPT/HCPCS: 74170; Q9967

== ENCOUNTER → 2017-12-19 09:52 | Outpatient (CLI) | payer BC, OTHER, SELFPAY ==
[2017-12-19 10:57] LABS: Anion Gap 10.6 mEq/L (5-15); Blood Urea Nitrogen 21 mg/dL (7-18); Calcium 9.3 mg/dL (8.5-10.1); Carbon Dioxide 31 mmol/L (21.0-32.0); Chloride 106 mmol/L (98-107); Creatinine,Serum 1.16 mg/dL (0.70-1.30); Estimated Glomerular Filt Rate 63 ml/min (>60); GFR (African American) 76 ML/MIN (>60); Glucose 102 mg/dL (74-106); Potassium 4.6 mmoL/L (3.5-5.1); Sodium 143 mmol/L (136-145)
== END ==
PROVIDERS: Visit Provider Nurse Practitioner Acute Care
DX: K86.81 Exocrine pancreatic insufficiency (principal)
CPT/HCPCS: 36415; 80048

== ENCOUNTER → 2017-12-21 09:29 | Outpatient (CLI) | payer BC, OTHER, SELFPAY ==
--- NOTE | 2017-12-21 09:33 | MR_ITS ---
MR abdomen wo/w con, MR 3-d myelogram/MRCP Ordering Physician: May Smith Patient Age: 67 years: Male HISTORY: ITS.REASON: CHRONIC PANCREATITIS, PANCREATIC DUCT OBSTRUCTION Diarrhea 5 months or so right upper quadrant pain 2 weeks. A TECHNIQUE: multisequence imaging of the abdomen using axial and coronal planes , pre and postcontrast 20 mL ProHance used for the postcontrast study. MRCP the 3-D volume rendering reconstruction performed on MRI workstation-...... [id number] COMPARISON :CT abdomen and pelvis with contrast 12/14/2017 ......... MRI ABDOMEN WITH AND WITHOUT CONTRAST WITH MRCP......... . Prominent Dilatation of the pancreatic duct is clearly evident. I believe this is due to the large calcification/stone at distal most pancreatic duct as previously noted on 12/14/2017 CT abdomen. This ovoid low signal stone is seen on some MR sequences on axial image 20; and also nicely seen some of the coronal sequences, coronal image 16.. The stone appears to measure measuring 11 mm in length times over 7 CM in diameter. The high signal duct yields a concave interface where meets the stone on the coronal images, wrapping about its.. (These best images been placed in the highlighted * keyimage set on PACs ) . This is pancreatic ductal obstruction nicely demonstrated on the 3-D reconstruction MRCP image set as well Theobstructed dilated duct pancreatic duct is 10 mm diameter just proximal to the distal most stone. This dilated duct passes through the head of pancreas and continues to the body of pancreas. The dilated portion of pancreatic duct extends for 6- 7 cm in length where it seems ends rather of abruptly at mid body of pancreas-where I believe there is a another generous size 7.5 mm stone within the pancreatic duct at mid body of pancreas. This is better seen on CT but I believe vaguely appreciated on MRI coronal images 14 and 13 .. Diffuse pancreatic atrophy is again noted. Atrophy Particularly pronounced at tail & mid body. Other Small scattered small calcifications seen throughout on previous CT, suggestive of old pancreatitis. The common duct appears normal diameter. Not dilated continues smoothly to the ampulla. The large low signal calcification appears to be just inferior to the common duct on coronal images The liver appears normal with no intrahepatic biliary ductal dilatation. Spleen normal size. No retroperitoneal adenopathy. Kidneys adrenals unremarkable on this study. . Duodenal loop normal anatomy and appearance. No mass apparent ampulla evident on this survey study IMPRESSION: 1. Prominent dilatation pancreatic duct.,due to a large stone at distal- most pancreatic duct. Pancreatic duct measures over 10 mm diameter through head of pancreas & remains markedly dilated to mid body pancreas, (where it ends ratherabruptly due to a second smaller pancreatic duct stone encountered mid body, best seen on CT). .. Prominent Pancreatic atrophy throughout, which seems most pronounced at tail & mid body. Modest residual pancreatic tissue most notable towards at head of pancreas. Numerous pancreatic calcifications on prior CT suggestive of old pancreatitis 2. Common duct appears normal caliber with no obstruction.
== END ==
PROVIDERS: Family Provider Emergency Medicine; PCP Internal Medicine Adolescent Medicine; Visit Provider Nurse Practitioner Acute Care
DX: K86.89 Other specified diseases of pancreas (principal); K86.81 Exocrine pancreatic insufficiency
CPT/HCPCS: 74183; 76376; A9576

== ENCOUNTER → 2018-01-19 09:04 | Outpatient (POV) | payer BC, OTHER, SELFPAY ==
--- NOTE | 2018-01-19 09:22 | HMH.PAINSOAP ---
[facility] Pain Management SOAP Note Subjective:: Patient is a pleasant 67-year-old white male who presents today for follow-up after lumbar epidural steroid injection. Patient states he is 100% better. He rates his pain a 0 out of 10 today. Patient states he is much more functional. Patient states he would like to have some anti-inflammatories for when he twinges his back. Patient overall doing very well. Patient would like to repeat an injection at the end of April after the cold weather begins. ROS General: no recent weight change, no fever, no sleep disturbances Respiratory: no cough, no shortness of air, no recurring pulmonary infections Cardiovascular/Peripheral Vascular: No chest pain, No palpitations, no edema, no shortness of breath. Gastrointestinal: no incontinence, normal bowel movements reported Genitourinary: no incontinence Musculoskeletal: Back pain, leg pain Psychiatric: normal mood/ affect Neurological: [denies weakness in extremities], [denies balance issues] Objective:: Physical Exam General: Alert and oriented x3, no acute distress, pleasant and cooperative, [on room air] Lungs: Resps E/U, Symmetrical chest expansion, Eyes: PERRL Musculoskeletal: Flexion and extension of lumbar spine somewhat guarded secondary to pain, deep tendon reflexes normal, strength in upper and lower extremities [5/5], slightly antalgic gait noted, positive straight leg raise test at 30? bilaterally Neurological: speech clear, supervisor pairing and inspecting equal, no gross sensory deficits Assessment:: Degenerative disc disease of lumbar spine with lumbar radiculopathy Plan:: We will schedule a L4-L5 lumbar epidural steroid injection for the patient in April. Patient is not on any anticoagulation therapy. Patient is continuing to do home stretching program. We will also call in 800 mg ibuprofen 1 p.o. 3 times daily and give him 1 month this. I will follow-up with the patient after his injection. This note was dictated using voice recognition software and may contain errors or omissions
[2018-01-19 09:47] VITALS: BP 119/50; PULSE 88; RESP 18; TEMP 36.5; O2SAT 95; BMI 30.8
== END ==
PROVIDERS: Family Provider Emergency Medicine; PCP Internal Medicine Adolescent Medicine; Visit Provider Clinical Nurse Specialist Family Health
DX: M51.16 Intervertebral disc disorders with radiculopathy, lumbar region (principal)
CPT/HCPCS: 99213

== ENCOUNTER → 2018-06-01 09:15 | Outpatient (POV) | payer BC, OTHER, SELFPAY ==
[2018-06-01 09:48] VITALS: BP 106/64; PULSE 87; RESP 18; O2SAT 98; BMI 31.1
--- NOTE | 2018-06-01 09:56 | HMH.PAINSOAP ---
[facility] Pain Management SOAP Note Subjective:: Patient is a pleasant 68-year-old white male who we are following up with after lumbar epidural steroid injection. He is doing extremely well stating that he has 100% relief of his back pain. Patient would like to schedule a injection for several months in the future. Patient typically gets about 4 months relief from his injections. ROS General: no recent weight change, no fever, no sleep disturbances Respiratory: no cough, no shortness of air, no recurring pulmonary infections Cardiovascular/Peripheral Vascular: No chest pain, No palpitations, no edema, no shortness of breath. Gastrointestinal: no incontinence, normal bowel movements reported Genitourinary: no incontinence Musculoskeletal: Back pain at times Psychiatric: normal mood/ affect Neurological: [denies weakness in extremities], [denies balance issues] Objective:: Physical Exam General: Alert and oriented x3, no acute distress, pleasant and cooperative, [on room air] Lungs: Resps E/U, Symmetrical chest expansion, Eyes: PERRL Musculoskeletal: Flexion and extension of lumbar spine somewhat guarded secondary to pain, deep tendon reflexes normal, strength in upper and lower extremities [5/5], normal gait noted Neurological: speech clear, girls swimming coach equal, no gross sensory deficits Assessment:: Degenerative disc disease lumbar spine with lumbar radiculopathy Plan:: We will schedule the patient for a L4-L5 lumbar epidural steroid injection in 4 months. Patient's been instructed to call the office if he has any issues prior to his next appointment. Dr. Malloy has reviewed this note and agrees with this plan of care. This note was dictated using voice recognition software and may contain errors or omissions
--- NOTE | 2018-06-01 09:59 | P.CONS_ITS ---
[facility] Pain Management SOAP Note Subjective:: Patient is a pleasant 68-year-old white male who we are following up with after lumbar epidural steroid injection. He is doing extremely well stating that he has 100% relief of his back pain. Patient would like to schedule a injection for several months in the future. Patient typically gets about 4 months relief from his injections. ROS General: no recent weight change, no fever, no sleep disturbances Respiratory: no cough, no shortness of air, no recurring pulmonary infections Cardiovascular/Peripheral Vascular: No chest pain, No palpitations, no edema, no shortness of breath. Gastrointestinal: no incontinence, normal bowel movements reported Genitourinary: no incontinence Musculoskeletal: Back pain at times Psychiatric: normal mood/ affect Neurological: [denies weakness in extremities], [denies balance issues] Objective:: Physical Exam General: Alert and oriented x3, no acute distress, pleasant and cooperative, [on room air] Lungs: Resps E/U, Symmetrical chest expansion, Eyes: PERRL Musculoskeletal: Flexion and extension of lumbar spine somewhat guarded secondary to pain, deep tendon reflexes normal, strength in upper and lower extremities [5/5], normal gait noted Neurological: speech clear, superintendent fish hatchery equal, no gross sensory deficits Assessment:: Degenerative disc disease lumbar spine with lumbar radiculopathy Plan:: We will schedule the patient for a L4-L5 lumbar epidural steroid injection in 4 months. Patient's been instructed to call the office if he has any issues prior to his next appointment. Dr. Malloy has reviewed this note and agrees with this plan of care. This note was dictated using voice recognition software and may contain errors or omissions
== END ==
PROVIDERS: PCP Internal Medicine Adolescent Medicine; Visit Provider Clinical Nurse Specialist Family Health
DX: M51.16 Intervertebral disc disorders with radiculopathy, lumbar region (principal)
CPT/HCPCS: 99213

== ENCOUNTER → 2018-09-13 08:46 | Outpatient (POV) | payer BC, OTHER, SELFPAY ==
[2018-09-13 09:08] VITALS: BP 133/84; PULSE 67; RESP 18; O2SAT 99; BMI 31.3
--- NOTE | 2018-09-13 09:17 | P.CONS_ITS ---
[facility] Pain Management SOAP Note Subjective:: Patient is a pleasant 68-year-old white male who we are treating for low back pain with lumbar radiculopathy. He is having good relief with his epidural injections. He rates his pain a 3 out of 10. He is following up after his second epidural states it worked even better he rates 80% relief of his symptomology. He would like to finish out with the third epidural. I believe that would be beneficial for him. ROS General: no recent weight change, no fever, no sleep disturbances Respiratory: no cough, no shortness of air, no recurring pulmonary infections Cardiovascular/Peripheral Vascular: No chest pain, No palpitations, no edema, no shortness of breath. Gastrointestinal: no incontinence, normal bowel movements reported Genitourinary: no incontinence Musculoskeletal: Back pain, leg pain Psychiatric: normal mood/ affect Neurological: [denies weakness in extremities], [denies balance issues] Objective:: Physical Exam General: Alert and oriented x3, no acute distress, pleasant and cooperative, [on room air] Lungs: Resps E/U, Symmetrical chest expansion, Eyes: PERRL Musculoskeletal: Flexion and extension of lumbar spine somewhat guarded secondary to pain, deep tendon reflexes normal, strength in upper and lower extremities [5/5], slightly antalgic gait noted Neurological: speech clear, discharge coordinator equal, no gross sensory deficits Assessment:: Degenerative disc disease lumbar spine with lumbar radiculopathy Plan:: We will schedule a third L4-L5 lumbar epidural steroid injection given the efficacy of it in the past. he is on anti-inflammatories and not on any anticoagulation therapy. He is continuing a home stretching program. I will follow-up with him after the injection reassess his symptoms at that time. Dr. Malloy has reviewed this note and agrees with this plan of care. This note was dictated using voice recognition software and may contain errors or omissions
== END ==
PROVIDERS: PCP Internal Medicine Adolescent Medicine; Visit Provider Clinical Nurse Specialist Family Health
DX: M51.16 Intervertebral disc disorders with radiculopathy, lumbar region (principal)
CPT/HCPCS: 99212

== ENCOUNTER → 2018-12-27 08:09 | Outpatient (CLI) | payer BC, OTHER, SELFPAY ==
[2018-12-27 10:49] LABS: Alanine Aminotransferase 34 U/L (12-78); Albumin Level 3.7 gm/dL (3.4-5.0); Albumin/Globulin Ratio 1.2 (1.1-1.8); Alkaline Phosphatase 82 U/L (46-116); Anion Gap 12.2 mEq/L (5-15); Aspartate Amino Transferase 11 U/L (15-37); Bilirubin,Total 0.5 mg/dL (0.2-1.0); Blood Urea Nitrogen 25 mg/dL (7-18); Calcium 9.3 mg/dL (8.5-10.1); Carbon Dioxide 29 mmol/L (21.0-32.0); Chloride 106 mmol/L (98-107); Chol/HDL Ratio 3.1 (1-3.5); Cholesterol 132 mg/dL (140-200); Creatinine,Serum 1.24 mg/dL (0.70-1.30); Estimated Glomerular Filt Rate 58 ml/min (>60); GFR (African American) 70 ML/MIN (>60); Globulin 3.2 gm/dl (1.3-3.2); Glucose 116 mg/dL (74-106); HDL Cholesterol 42 mg/dL (27-67); LDL Cholesterol 78 mg/dL (0-130); Potassium 5.2 mmoL/L (3.5-5.1); Sodium 142 mmol/L (136-145); Thyroid Stimulating Hormone 0.97 uIU/ml (0.358-3.740); Total Protein,Serum 6.9 gm/dL (6.4-8.2); Triglycerides 60 mg/dL (30-200); VLDL Cholesterol 12 mg/dL (0-40)
[2018-12-27 10:50] LABS: Hemoglobin A1C 5.7 % (0.0-7.0)
== END ==
PROVIDERS: Visit Provider Internal Medicine Adolescent Medicine
DX: E78.49 Other hyperlipidemia (principal); K86.81 Exocrine pancreatic insufficiency; E03.9 Hypothyroidism, unspecified; I10 Essential (primary) hypertension
CPT/HCPCS: 36415; 80053; 80061; 83036; 84443

== ENCOUNTER → 2019-02-01 09:21 | Outpatient (CLI) | payer BC, OTHER, SELFPAY ==
[2019-02-01 10:50] LABS: Blood Urea Nitrogen 22 mg/dL (7-18); Creatinine,Serum 1.16 mg/dL (0.70-1.30); Estimated Glomerular Filt Rate 63 ml/min (>60); GFR (African American) 76 ML/MIN (>60)
== END ==
PROVIDERS: Visit Provider Internal Medicine Gastroenterology
DX: Z01.818 Encounter for other preprocedural examination (principal)
CPT/HCPCS: 36415; 82565; 84520

== ENCOUNTER → 2019-02-02 10:08 | Outpatient (CLI) | payer BC, OTHER, SELFPAY ==
--- NOTE | 2019-02-02 10:19 | CT_ITS ---
PROCEDURE: CT ABDOMEN WO/W CON CLINICAL HISTORY: CHRONIC PANCREATITIS,PANCRATIC DUCT STONES COMPARISON: ABDWW CT abdomen wo/w con from 12/14/2017 ABDWW MR abdomen wo/w con from 12/21/2017 comparison is also made with MRCP from 12/21/2017. TECHNIQUE: 75 cc of intravenous contrast Axial images obtained with sagittal and coronal reformats. All CT scans at the facility use one or more dose reduction, viz: automated exposure control, ma/kV adjustment per patient size (including targeted exams where dose is matched to indication, i.e. head), or iterative reconstruction technique. FINDINGS: . again seen are the small calcifications along the pancreas along with fatty infiltration of the body and tail of the pancreas. There is also moderate fatty infiltration of the head and uncinate process and there is a stable prominent calcification at the head of the of the pancreas lobe which on the MRCP was described as likely in the pancreatic duct. This is unchanged. Liver is normal and there is no intrahepatic or extrahepatic biliary dilatation. There is a clip in the gallbladder fossa. Adrenal glands and spleen are normal. Kidneys and the opacified portions of the ureters appear to be unremarkable. There is incomplete fluid distension of the stomach for adequate evaluation. There is no bowel dilatation or wall thickening. Appendix is normal. There is no free air or ascites. There are aortic calcified plaques without dilatation. IMPRESSION: Findings of chronic pancreatitis with diffuse pancreatic fatty infiltration appears stable. The stone in the pancreatic duct is unchanged. No significant change or acute process. Dictated by: Charly Pressley 02/02/2019 12:36 Electronically signed by Charly Pressley in [place] 02/02/2019 12:36
== END ==
PROVIDERS: PCP Internal Medicine Adolescent Medicine; Visit Provider Internal Medicine Gastroenterology
DX: K86.1 Other chronic pancreatitis (principal); K86.89 Other specified diseases of pancreas
CPT/HCPCS: 74170; Q9967

== ENCOUNTER → 2019-02-28 09:46 | Outpatient (POV) | payer BC, OTHER, SELFPAY ==
[2019-02-28 10:14] VITALS: BP 119/78; PULSE 84; RESP 18; O2SAT 98; BMI 38.4
--- NOTE | 2019-02-28 10:52 | HMH.PAINSOAP ---
[facility] Pain Management SOAP Note Subjective:: Patient is a pleasant 69-year-old white male who presents today for follow-up after third epidural steroid injection this year. He rates his pain a 2 out of 10. Patient is doing well. Patient would like to schedule an epidural steroid injection for the beginning of the year. Patient gets 80% relief for several months. Patient is continuing home stretching program and staying as active as possible. Patient is not on any anticoagulation therapy. ROS General: no recent weight change, no fever, no sleep disturbances Respiratory: no cough, no shortness of air, no recurring pulmonary infections Cardiovascular/Peripheral Vascular: No chest pain, No palpitations, no edema, no shortness of breath. Gastrointestinal: no new onset incontinence, normal bowel movements reported Genitourinary: no new onset incontinence Musculoskeletal: Back pain Psychiatric: normal mood/ affect Neurological: [denies new onset weakness in extremities], [denies new onset balance issues] Objective:: Physical Exam General: Alert and oriented x3, no acute distress, pleasant and cooperative, [on room air] Lungs: Resps E/U, Symmetrical chest expansion, Eyes: PERRL Musculoskeletal: Flexion and extension of lumbar spine somewhat guarded secondary to pain, deep tendon reflexes normal, strength in upper and lower extremities [5/5], slightly antalgic gait noted Neurological: speech clear, lineman service or work dispatcher equal, no gross sensory deficits Assessment:: Degenerative disc disease lumbar spine with lumbar radiculopathy Plan:: We will set the patient up for lumbar epidural steroid injection at L4-L5 given the efficacy of this in the past I believe it would be beneficial. We will do this at the beginning of May. He is been instructed to call the office if he has any issues prior to his next appointment. Dr. Malloy has reviewed this note and agrees with this plan of care. This note was dictated using voice recognition software and may contain errors or omissions [facility] History I have reviewed the patient's past medical history: Yes Medical History: Reports:: Hyperlipidemia, Hypertension, Transient Ischemic Attacks (TIA) Denies:: Cancer, Diabetes Mellitus Type 1, Diabetes Mellitus Type 2, Internal Pacemaker, Lung Disease, MRSA, Seizures *Have you ever received a pneumonia vaccine?: Yes *Have you received a flu vaccine this season?: Yes Other Medical History: Denies: Blood Transfusion Reaction Other Surgeries: Yes: Cardiac Catheterization, Other. No: Pacemaker Amputation: No Fractures: Yes - *Social History Smoking Status: Never smoker Alcohol Intake: current Alcohol Intake Frequency:: a few times a month Substance Use Type: denies use *Occupational Status:: other Housing: house Household Members: spouse *Travel in the last 8 weeks: None Family Hx:: No significant family history
--- NOTE | 2019-02-28 11:04 | P.CONS_ITS ---
[facility] Pain Management SOAP Note Subjective:: Patient is a pleasant 69-year-old white male who presents today for follow-up after third epidural steroid injection this year. He rates his pain a 2 out of 10. Patient is doing well. Patient would like to schedule an epidural steroid injection for the beginning of the year. Patient gets 80% relief for several months. Patient is continuing home stretching program and staying as active as possible. Patient is not on any anticoagulation therapy. ROS General: no recent weight change, no fever, no sleep disturbances Respiratory: no cough, no shortness of air, no recurring pulmonary infections Cardiovascular/Peripheral Vascular: No chest pain, No palpitations, no edema, no shortness of breath. Gastrointestinal: no new onset incontinence, normal bowel movements reported Genitourinary: no new onset incontinence Musculoskeletal: Back pain Psychiatric: normal mood/ affect Neurological: [denies new onset weakness in extremities], [denies new onset balance issues] Objective:: Physical Exam General: Alert and oriented x3, no acute distress, pleasant and cooperative, [on room air] Lungs: Resps E/U, Symmetrical chest expansion, Eyes: PERRL Musculoskeletal: Flexion and extension of lumbar spine somewhat guarded secondary to pain, deep tendon reflexes normal, strength in upper and lower extremities [5/5], slightly antalgic gait noted Neurological: speech clear, supervisor model making equal, no gross sensory deficits Assessment:: Degenerative disc disease lumbar spine with lumbar radiculopathy Plan:: We will set the patient up for lumbar epidural steroid injection at L4-L5 given the efficacy of this in the past I believe it would be beneficial. We will do this at the beginning of May. He is been instructed to call the office if he has any issues prior to his next appointment. Dr. Malloy has reviewed this note and agrees with this plan of care. This note was dictated using voice recognition software and may contain errors or omissions [facility] History I have reviewed the patient's past medical history: Yes Medical History: Reports:: Hyperlipidemia, Hypertension, Transient Ischemic Attacks (TIA) Denies:: Cancer, Diabetes Mellitus Type 1, Diabetes Mellitus Type 2, Internal Pacemaker, Lung Disease, MRSA, Seizures *Have you ever received a pneumonia vaccine?: Yes *Have you received a flu vaccine this season?: Yes Other Medical History: Denies: Blood Transfusion Reaction Other Surgeries: Yes: Cardiac Catheterization, Other. No: Pacemaker Amputation: No Fractures: Yes - *Social History Smoking Status: Never smoker Alcohol Intake: current Alcohol Intake Frequency:: a few times a month Substance Use Type: denies use *Occupational Status:: other Housing: house Household Members: spouse *Travel in the last 8 weeks: None Family Hx:: No significant family history
== END ==
PROVIDERS: PCP Internal Medicine Adolescent Medicine; Visit Provider Clinical Nurse Specialist Family Health
DX: M51.16 Intervertebral disc disorders with radiculopathy, lumbar region (principal)
CPT/HCPCS: 99212

== ENCOUNTER → 2019-05-31 08:51 | Outpatient (POV) | payer BC, OTHER, SELFPAY ==
[2019-05-31 08:59] VITALS: BP 117/83; PULSE 82; RESP 18; O2SAT 98; BMI 32.1
--- NOTE | 2019-05-31 09:58 | HMH.PAINSOAP ---
[facility] Pain Management SOAP Note Subjective:: Patient is a pleasant 69-year-old white male who presents today for follow-up after lumbar epidural steroid injection. Patient got over 80% relief of his symptomology. He rates his pain a 1 out of 10 today. Patient would like to repeat his epidural in September. I do believe that this would be appropriate. Patient gets about 3 to 4 months relief with his epidural injections. Patient is able to be much more active. Patient is continuing a home stretching program. He is on anti-inflammatories. Patient is not on any anticoagulation therapy. ROS General: no recent weight change, no fever, no sleep disturbances Respiratory: no cough, no shortness of air, no recurring pulmonary infections Cardiovascular/Peripheral Vascular: No chest pain, No palpitations, no edema, no shortness of breath. Gastrointestinal: no new onset incontinence, normal bowel movements reported Genitourinary: no new onset incontinence Musculoskeletal: Back pain, leg pain Psychiatric: normal mood/ affect Neurological: [denies new onset weakness in extremities], [denies new onset balance issues] Objective:: Physical Exam General: Alert and oriented x3, no acute distress, pleasant and cooperative, [on room air] Lungs: Resps E/U, Symmetrical chest expansion, Eyes: PERRL Musculoskeletal: Flexion and extension of lumbar spine somewhat guarded secondary to pain, deep tendon reflexes normal, strength in upper and lower extremities [5/5], [abnormal gait noted] Neurological: speech clear, senior it recruiter equal, no gross sensory deficits Assessment:: Degenerative disc disease lumbar spine with lumbar radiculopathy Plan:: We will schedule an L4-L5 lumbar epidural steroid injection for the patient in September. Patient's been instructed to call the office if he has any issues prior to his next appointment. Dr. Malloy has reviewed this note and agrees with this plan of care. This note was dictated using voice recognition software and may contain errors or omissions [facility] History I have reviewed the patient's past medical history: Yes Medical History: Reports:: Asthma (childhood ), Hyperlipidemia, Hypertension, Transient Ischemic Attacks (TIA) (2018) Denies:: Cancer, Diabetes Mellitus Type 1, Diabetes Mellitus Type 2, Internal Pacemaker, Lung Disease, MRSA, Seizures *Have you ever received a pneumonia vaccine?: Yes *Have you received a flu vaccine this season?: Yes Other Medical History: Reports: Hypothyroidism. Denies: Blood Transfusion Reaction Other Surgeries: Yes: Cardiac Catheterization, Colonoscopy, Other. No: Pacemaker Amputation: No Fractures: Yes - *Social History Smoking Status: Never smoker Alcohol Intake: current Alcohol Intake Frequency:: a few times a month Substance Use Type: denies use *Occupational Status:: other Housing: house Household Members: spouse *Travel in the last 8 weeks: None Family Hx:: Cancer (sister ), Heart Attack, Stroke, Hyperlipidemia, Hypertension
== END ==
PROVIDERS: PCP Internal Medicine Adolescent Medicine; Visit Provider Clinical Nurse Specialist Family Health
DX: M51.16 Intervertebral disc disorders with radiculopathy, lumbar region (principal)
CPT/HCPCS: 99212

== ENCOUNTER 2019-08-17 10:50 | Emergency (ER) | payer BC, OTHER, SELFPAY ==
[2019-08-17 10:59] VITALS: BP 126/84; PULSE 77; RESP 16; TEMP 36.6; O2SAT 98; BMI 31.3
--- NOTE | 2019-08-17 11:00 | PC.NURSE ---
Pt to restroom
--- NOTE | 2019-08-17 11:05 | XR_ITS ---
PROCEDURE: XR CHEST PORTABLE CLINICAL HISTORY: ams Confusion COMPARISON: CXR1 CHEST-PORTABLE from 11/06/2015 FINDINGS: The cardiomediastinal silhouette and pulmonary vascularity are within normal limits. The lungs are clear without infiltrates, suspicious nodules, or pleural effusions. There are degenerative changes of the right AC joint and mild degenerative changes of the glenohumeral joint on the right IMPRESSION: No acute findings. Dictated by: Elvis Maldonado MD 08/17/2019 13:09 Electronically signed by Elvis Maldonado MD in [place] 08/17/2019 13:09
--- NOTE | 2019-08-17 11:06 | CT_ITS ---
PROCEDURE: CT HEAD/BRAIN WO CON CLINICAL INDICATION: ams Altered mental status, altered level consciousness, confusion, disorientation, memory loss COMPARISON: No exams were available for comparison TECHNIQUE: Axial images obtained. All CT scans at the facility use one or more dose reduction, viz: automated exposure control, ma/kV adjustment per patient size (including targeted exams where dose is matched to indication, i.e. head), or iterative reconstruction technique. FINDINGS: No midline shift, mass effect, intracranial hemorrhage, hydrocephalus, or extra-axial fluid collection is evident. There is some lobularity of the noted the left internal carotid artery near its bifurcation. This is nonspecific and may only be due to ectasia. Cannot exclude an aneurysm. No evidence of acute intracranial hemorrhage. The calvarium has an unremarkable appearance. No mastoid effusion. No sinus air-fluid level. IMPRESSION: 1. No acute intracranial findings. 2. Mild lobularity of the left ICA bifurcation which could only be due to partial volume averaging artifact and mild ectasia. Cannot exclude an ICA aneurysm. Nonemergent MRA may provide further evaluation. Dictated by: Elvis Maldonado MD 08/17/2019 11:53 Electronically signed by Elvis Maldonado MD in [facility] 08/17/2019 11:53
[2019-08-17 11:08] LABS: Microscopic, Urine URINE MICROSCOPIC (MICROSCOPIC)
--- NOTE | 2019-08-17 11:08 | ECG_ITS ---
APPROVED REPORT Exam: Resting ECG HR:79 bpm ECG Measurements Heart Rate 79 AXES SC 148 P 53 QRSd 94 QRS -42 QT 334 T 67 QTc 382 <Conclusion> Normal sinus rhythm Left axis deviation Nonspecific T wave abnormality Abnormal ECG Electronically signed by : Aurelio Vides, 08/17/2019 16:23:27
[2019-08-17 11:13] LABS: Basophils # 0.1 K/mm3 (0-0.2); Basophils % 0.6 % (0.1-2.0); Eosinophils # 0.3 K/mm3 (0.0-0.4); Eosinophils % 2.8 % (0.1-12.0); Hematocrit 44.3 % (42.0-52.0); Lymphocytes # 1.9 K/mm3 (0.7-4.5); Lymphocytes % 19.3 % (10-50); Mean Corpuscular HGB Conc 33.9 g/dL (31.8-35.4); Mean Corpuscular Hemoglobin 31.6 pg (27.0-31.2); Mean Corpuscular Volume 93.2 fl (80-94); Mean Platelet Volume 8.4 fl (7.4-10.4); Monocytes # 0.8 K/mm3 (0.1-1.0); Neutrophils # 6.9 K/mm3 (1.8-7.8); Neutrophils % 69.3 % (37.0-80.0); Platelet Count 182 K/mm3 (142-424); Red Blood Count 4.75 M/mm3 (4.60-6.20); Red Cell Distribution Width 13.4 % (11.5-17.5)
[2019-08-17 11:14] LABS: Chloride 105 mmol/L (98-107); Sodium 139 mmol/L (136-145)
[2019-08-17 11:15] LABS: Potassium 4.4 mmoL/L (3.5-5.1)
[2019-08-17 11:17] LABS: Alanine Aminotransferase 28 U/L (12-78); Albumin Level 4.4 g/dl (3.5-5.0); Alkaline Phosphatase 70 U/L (38-126); Anion Gap 13.4 mEq/L (5-15); Appearance,Urine CLEAR (Clear); Aspartate Amino Transferase 32 U/L (17-59); Bilirubin,Total 0.7 mg/dl (0.2-1.3); Bilirubin,Urine Negative (Negative); Blood Urea Nitrogen 22 mg/dl (9-20); Blood, Urine TRACE-I (Negative); Carbon Dioxide 25 mmol/L (22.0-30.0); Color,Urine YELLOW (Yellow); Creatinine Clearance Estimated 91 mL/min (50-200); Estimated Glomerular Filt Rate 74 ml/min (>60); GFR (African American) 90 ML/MIN (>60); Glucose,Urine (UA) Negative (Negative); Ketones,Urine Negative (Negative); Leukocyte Esterase,Urine Negative (Negative); Nitrate,Urine Negative (Negative); Protein,Urine Negative (Negative); Specific Gravity, Urine 1.025 (1.005-1.030); Urobilinogen,Urine 0.2 EU/dl (0.2)
[2019-08-17 11:18] LABS: Albumin/Globulin Ratio 1.5 (1.1-1.8); Calcium 9.5 mg/dl (8.4-10.2); Globulin 2.9 g/dL (1.3-3.2); Glucose 98 mg/dl (74-100); Total Protein,Serum 7.3 g/dl (6.3-8.2)
[2019-08-17 11:30] LABS: Troponin I < 0.01 ng/ml (0.00-0.034)
[2019-08-17 11:33] LABS: Squamous Epithelial Cell,Urine Occasional #/hpf (0-5)
[2019-08-17 11:51] VITALS: BP 132/74; PULSE 77; RESP 16; O2SAT 98
--- NOTE | 2019-08-17 12:26 | PC.NURSE ---
calling [facility] at this time
[2019-08-17 12:30] VITALS: BP 122/85; PULSE 72; O2SAT 95
--- NOTE | 2019-08-17 12:46 | PC.NURSE ---
Spoke with [facility] who stated that there is only one neurology person [facility] commissioner at this time and they were in a procedure. Will have them return call.
--- NOTE | 2019-08-17 13:16 | CA_ITS ---
APPROVED REPORT EXAM: Comprehensive 2D, Doppler, and color-flow Echocardiogram Assembler Chassis: Yusra Yu CRT Ht: 5 ft 7 in Wt: 200lbs BSA: 2.02 BP: 132/80 mmHg ICD: confusion ? PFO Indications: Hyperlipidemia, Hypertension/HDD, TIA, ? PFO Echo Enhancing Agent Indication: Rule out Shunt Agent(s) / Amount(s) Used: Agitated Saline cc Comments: Possible + ASD/PFO Contrast study was performed with 3 IV injections of 10ccs of agitated normal saline, at rest, with cough and post valsalva maneuver. 2D Dimensions LVOT 2.15 cm (M/F) 1.5-2.5 M-Mode Dimensions RVDd 3.42 cm (0.9-2.6) LVDd 4.94 cm (3.5-5.7) LVDs 3.31 cm (3.5-5.7) IVSd 1.56 cm (0.6-1.1) PWd 0.95 cm (0.6-1.1) EF (Teich) 61.30% FS 33.00% EDV (Teich) 115.00 mL ESV (Teich) 44.50 mL LV Diastology E/A Ratio 0.86 Mitral Valve MV A Velocity 85.00 (40-130 cm/s) Left Ventricle Left atrium is mildly enlarged, left ventricle is normal size, mild concentric left ventricular hypertrophy, visually estimated ejection fraction 55% with no regional wall motion abnormality. Grade 1 diastolic dysfunction seen without tissue Doppler evidence of raise left atrial pressure. Right Ventricle Right atrium right ventricular normal size and contractility. Atria Intra-atrial septum is intact, there is no obvious flow across the interatrial septum, agitated saline contrast study is inconclusive for intracardiac shunt. Aortic Valve Aortic valve is minimally thickened and fibrosed, there is no aortic stenosis or aortic insufficiency. Mitral Valve Mitral valve is grossly normal, there is mild mitral regurgitation. Tricuspid Valve Tricuspid valve is grossly normal, there is mild tricuspid regurgitation. Pulmonic Valve Pulmonic valve is poorly visualized. Great Vessels Aortic root is normal size. Pericardium No significant pericardial effusion noted. Conclusion 1. Mildly enlarged left atrium, normal left ventricular size, mild concentric left ventricular hypertrophy, visually estimated ejection fraction 55% with no regional wall motion abnormality, grade 1 diastolic dysfunction seen without tissue Doppler evidence of raise left atrial pressure. 2. Mild mitral and tricuspid regurgitation. 3. Agitated saline contrast study is inconclusive for intracardiac shunt, if clinically indicated a transesophageal echocardiogram is recommended to rule out presence of cardiac source of emboli. 4. No significant pericardial effusion noted. Electronically signed by : Emiliano Alaniz, 08/18/2019 11:36:04
--- NOTE | 2019-08-17 13:20 | PC.NURSE ---
speaking with Dr. Varghese
--- NOTE | 2019-08-17 13:37 | PC.NURSE ---
Pt going up for echo
--- NOTE | 2019-08-17 14:22 | HMH.EDGENADL ---
ED Disposition Clinical Impression: TGA (transient global amnesia) Disposition: Home, Self-Care Condition on Discharge: Good Instructions: DI for Altered Mental Status Additional Instructions: Please follow-up with Dr. Geiger at 9 AM on Thursday. Please call [phone] to set appointment up with Dr. Calvillo. Referrals: Cameron Geiger MD [Primary Care Provider] - - Critical Care Critical Care Time: No Attestation: On 08/17/19, the high probability of a clinically significant, sudden or life threatening deterioration of the following system(s) required my full and direct attention, intervention and personal management. The time I documented below is in addition to time spent performing reported procedures but includes the following listed in this critical care notation. Medical Decision Making - Medical Records Medical records reviewed: Yes: I reviewed the patient's medical records. - Boo Inquiry Pt receiving controlled substance: No Vital Signs: 08/17/19 10:59 08/17/19 11:51 08/17/19 12:30 Temperature 98 F Temperature Source Oral Pulse Rate [Left Radial] 77 77 72 Respiratory Rate 16 16 Blood Pressure [Right Arm] 126/84 132/74 122/85 Blood Pressure Mean [Right Arm] 98 93 97 Blood Pressure Source [Right Arm] Automatic Cuff Blood Pressure Position [Right Arm] Sitting Sitting Sitting 02 Sat by Pulse Oximetry 98 98 95 Oxygen Delivery Method Room Air Room Air Room Air 08/17/19 14:29 Temperature Temperature Source Pulse Rate [Left Radial] 72 Respiratory Rate Blood Pressure [Right Arm] 100/74 L Blood Pressure Mean [Right Arm] 82 Blood Pressure Source [Right Arm] Automatic Cuff Blood Pressure Position [Right Arm] Sitting 02 Sat by Pulse Oximetry 95 Oxygen Delivery Method Room Air - Lab Data Lab results reviewed: Yes: I reviewed the patient's lab results. Lab Results 08/17/19 11:00: Urine Color Yellow, Urine Appearance Clear, Urine pH 6.0, Ur Specific [place] 1.025, Urine Protein Negative, Urine Glucose (UA) Negative, Urine Ketones Negative, Urine Blood Trace-i, Urine Nitrate Negative, Urine Bilirubin Negative, Urine Urobilinogen 0.2, Ur Leukocyte Esterase Negative, Urine RBC 5-10, Urine WBC 3-5, Ur Squamous Epith Cells Occasional, Urine Bacteria None 08/17/19 11:00: WBC 10.0, RBC 4.75, Hgb 15.0, Hct 44.3, MCV 93.2, MCH 31.6 H, MCHC 33.9, RDW 13.4, Plt Count 182, MPV 8.4, Neut % (Auto) 69.3, Lymph % (Auto) 19.3, [place] % (Auto) 8.0, Eos % (Auto) 2.8, Baso % (Auto) 0.6, Neut # (Auto) 6.9, Lymph # (Auto) 1.9, [place] # (Auto) 0.8, Eos # (Auto) 0.3, Baso # (Auto) 0.1 08/17/19 11:00: Sodium 139, Potassium 4.4, Chloride 105, Carbon Dioxide 25, Anion Gap 13.4, BUN 22 H, Creatinine 1.00, Estimated Creat Clear 91, Estimated GFR 74, Est GFR ( Amer) 90, Glucose 98, Calcium 9.5, Total Bilirubin 0.7, AST 32, ALT 28, Alkaline Phosphatase 70, Troponin I < 0.01, Total Protein 7.3, Albumin 4.4, Globulin 2.9, Albumin/Globulin Ratio 1.5 Result diagrams: 08/17/19 11:00 08/17/19 11:00 - Radiology Data #1 Image(s): Chest Preliminary Findings: Normal/NAD - CT Data CT Scan: Head Time Received: 14:00 Preliminary Findings: Normal/NAD - ECG Data Tracing #2 I reviewed this ECG and interpreted as documented below: Normal Sinus Rhythm: Yes Medical Decision Narrative: Spoke to Dr. Calvillo neurologist from [facility] she did go over his previous admission in November 2017 and stated that this was very similar to his previous episode that was diagnosed with TGA. I also spoke to Dr. Santiago who was covering for Dr. Geiger about this patient and they agreed to see him in the office on Thursday morning at [address] Calvillo did state that for them to call her office number to schedule a telemedicine appointment. General Adult HPI - General Chief complaint: Altered Mental Status Stated complaint: momory loss Time Seen by Provider: 08/17/19 14:22 Mode of Arrival: Ambulatory Limitations: No Limitatio
--- NOTE | 2019-08-17 14:22 | PC.NURSE ---
Pt returned from echo
[2019-08-17 14:29] VITALS: BP 100/74; PULSE 72; O2SAT 95
[2019-08-17 15:07] VITALS: BP 107/65; PULSE 77; RESP 16; TEMP 36.6; O2SAT 98
== END 2019-08-17 15:08 | disposition home or self-care (01) ==
PROVIDERS: Emergency Provider Family Medicine; PCP Internal Medicine Adolescent Medicine
DX: G45.4 Transient global amnesia (principal); I10 Essential (primary) hypertension; E78.5 Hyperlipidemia, unspecified; J45.909 Unspecified asthma, uncomplicated; Z86.73 Personal history of transient ischemic attack (TIA), and cerebral infarction without residual deficits; Z79.82 Long term (current) use of aspirin; Z79.899 Other long term (current) drug therapy; Z79.890 Hormone replacement therapy; Z88.0 Allergy status to penicillin; Z88.5 Allergy status to narcotic agent; Z82.49 Family history of ischemic heart disease and other diseases of the circulatory system; Z82.3 Family history of stroke; Z80.9 Family history of malignant neoplasm, unspecified
CPT/HCPCS: 70450; 71045; 80053; 81001; 84484; 85025; 93005; 93306; 99284

== ENCOUNTER → 2019-09-05 09:52 | Outpatient (CLI) | payer BC, OTHER, SELFPAY ==
[2019-09-06 08:57] LABS: Covid-19 Nasal PCR Sendout Lex NOT DETECTED
--- NOTE | 2019-09-06 09:50 | PC.NURSE ---
notified patient of negative results, notified REZA Cowan in pain management as well.
== END ==
PROVIDERS: Visit Provider Anesthesiology
DX: Z03.818 Encounter for observation for suspected exposure to other biological agents ruled out (principal)
CPT/HCPCS: U0003

== ENCOUNTER 2019-09-07 13:43 | Day surgery (SDC) | payer BC, OTHER, SELFPAY ==
[2019-09-07 14:09] VITALS: BP 142/80; PULSE 102; RESP 18; TEMP 36.8; O2SAT 96; BMI 33.0
[2019-09-07 14:29] VITALS: BP 129/80; PULSE 86; RESP 18; O2SAT 99
[2019-09-07 14:30] VITALS: BP 130/83; PULSE 88; RESP 18; O2SAT 99
--- NOTE | 2019-09-07 14:32 | P.PCN_ITS ---
- Procedure Date: 09/07/19 Time: 14:33 Anesthesiologist:: Celio Malloy MD Complications:: None Pre-procedure Diagnosis:: Degenerative disc disease of lumbar spine with lumbar radiculopathy symptoms Post-procedure Diagnosis:: Same Indications for Procedure:: This patient is a pleasant 69-year-old white male who we are treating for low back pain with lumbar radiculopathy symptoms. He is done very well with his previous epidural. His pain is now starting to come back. He was 80% better with his last epidural. We will do a repeat lumbar epidural steroid injection under fluoroscopy today. Procedure Details:: Lumbar epidural steroid injection under fluoroscopy Informed consent was obtained and the risk and benefits of the procedure was explained to the patient. The patient was taken to the procedure room. The patient was placed prone on the procedure table. The patient was prepped and draped in sterile fashion. C-arm fluoroscopy was used to view the lumbar spine. Skin and subcutaneous tissues were anesthetized using lidocaine. I placed an 18-gauge epidural needle and advanced into the L4-L5 interspace using fluoroscopic guidance and [id number] to air. After confirmation of needle placement in the epidural space with dye I injected 2 mL of lidocaine 1.5% with Depo-Medrol 80 mg. Patient tolerated the procedure well with no compl ications. Plan and Disposition:: We will follow-up with him in 2 weeks. Will reevaluate his symptoms at that time.
[2019-09-07 14:47] VITALS: BP 144/70; PULSE 80; RESP 20; O2SAT 96
== END 2019-09-07 14:49 | disposition home or self-care (01) ==
LOC: SC.PAINP 13:44
PROVIDERS: PCP Internal Medicine Adolescent Medicine; Visit Provider Anesthesiology
DX: M51.16 Intervertebral disc disorders with radiculopathy, lumbar region (principal)
CPT/HCPCS: 62323; J1040; Q9966

== ENCOUNTER 2019-12-01 12:21 | Day surgery (SDC) | payer BC, OTHER, SELFPAY ==
[2019-12-01 12:29] VITALS: BMI 33.8
--- NOTE | 2019-12-01 12:37 | CA_ITS ---
APPROVED REPORT EXAM: Comprehensive 2D, Doppler, and color-flow Echocardiogram Buffing Turner And Counter: Leigha Negron RDCS Ht: 5 ft 7 in Wt: 214lbs BSA: 2.08 BP: 142/88 mmHg Indications: MYRIAM R/O PFO,SYNCOPE Procedure After obtaining informed consent, patient underwent transesophageal echo in the Certified Adapted Physical Educator. Type of Sedation : Conscious Sedation Sedation was administered by Chris Carlos C.R.N.A. Transesophageal probe was inserted and advanced into esophagus without difficulty by Dr. Lily Wilkinson. The MYRIAM was performed without complications. Throughout the procedure, the blood pressure, pulse oximetry, cardiac rhythm, and rate were monitored. The patient tolerated the procedure without adverse effects. Recovery from conscious sedation was uneventful and vital signs were stable. Left Ventricle Left ventricle is normal size mild concentric left ventricular hypertrophy, visually estimated ejection fraction 55% in the obtained views with no regional wall motion abnormality. Right Ventricle Right ventricle is normal size and contractility. Atria Left atrium is mildly enlarged, left atrial appendage is free of thrombus, there is good appendage flow by spectral Doppler. Right atrium is normal size. Intra-atrial septum is intact, its mobile, there is a small patent foramen ovale with intermittent luuge-nr-aass shunt documented by agitated saline contrast . There is no vwtc-rw-pwdko shunt seen. Aortic Valve Aortic valve is minimally thickened and fibrosed, there is no aortic stenosis or aortic insufficiency. Mitral Valve Mitral valve is grossly normal, there is mild mitral regurgitation. Tricuspid Valve Tricuspid valve is grossly normal, there is mild tricuspid regurgitation. Pulmonic Valve Pulmonic valve is grossly normal. Great Vessels Aortic root is normal size. Ascending, arch and descending thoracic aorta there is no aneurysm or dissection, non-mobile atheromatous plaque seen in the arch and descending thoracic aorta. Pericardium No significant pericardial effusion noted. Conclusion 1. Mildly enlarged left atrium, normal left ventricular size, mild concentric left ventricular hypertrophy, visually estimated ejection fraction 55% with no regional wall motion abnormality. 2. Small patent foramen ovale as described above with intermittent bscyh-ko-miup shunt documented by saline contrast study, there is no lcna-xq-viaet shunt seen. 3. Mild mitral and tricuspid regurgitation. 4. Non-mobile atheromatous plaque seen in the arch and descending thoracic aorta. 5. No significant pericardial effusion noted. Electronically signed by : Emiliano Alaniz, 12/01/2019 13:42:12
[2019-12-01 12:47] VITALS: BP 144/87; PULSE 71; RESP 16; TEMP 36.8; O2SAT 94
[2019-12-01 12:57] LABS: Basophils % 0.4 % (0.1-2.0); Eosinophils # 0.4 K/mm3 (0.0-0.4); Eosinophils % 5.2 % (0.1-12.0); Hematocrit 42.8 % (42.0-52.0); Hemoglobin 15.4 g/dL (14.1-18.0); Lymphocytes % 24.4 % (10-50); Mean Corpuscular HGB Conc 36.1 g/dL (31.8-35.4); Mean Corpuscular Hemoglobin 32.9 pg (27.0-31.2); Mean Corpuscular Volume 91.2 fl (80-94); Mean Platelet Volume 8.5 fl (7.4-10.4); Monocytes # 0.6 K/mm3 (0.1-1.0); Neutrophils # 5.1 K/mm3 (1.8-7.8); Neutrophils % 63.1 % (37.0-80.0); Platelet Count 173 K/mm3 (142-424); Red Cell Distribution Width 13.3 % (11.5-17.5); White Blood Count 8.1 K/mm3 (4.8-10.8)
[2019-12-01 13:31] VITALS: BP 127/73; PULSE 77; RESP 20; O2SAT 96
[2019-12-01 14:01] VITALS: BP 127/73; PULSE 67; O2SAT 95
--- NOTE | 2019-12-02 08:14 | HMH.ANESCL ---
[facility] Anesthesia Checklist - Structural Data Admitted From: Home Planned Operative Procedure/s: suzanne Consent for Planned Operative Procedure(s) Verified: Yes - Additional verifications Anesthesia Reactions: No Hx Blood Transfusions: No Blood Transfusion Reaction: No - Airway Assessment C-Spine Mobility Assessed: Yes TMJ Mobility Assessed: Yes Dentition: Good Dentition - Neurological Assessment Level of Consciousness: Awake, Alert, Appropriate - Anesthesia Plan Anesthesia Risk discussed: Yes ASA Class: III Anesthesia Type: MAC [facility] History I have reviewed the patient's past medical history: Yes Medical History: Reports:: Asthma, Hyperlipidemia, Hypertension, Transient Ischemic Attacks (TIA) Denies:: Cancer, Diabetes Mellitus Type 1, Diabetes Mellitus Type 2, Internal Pacemaker, Lung Disease, MRSA, Seizures *Have you ever received a pneumonia vaccine?: Yes *Have you received a flu vaccine this season?: Yes Other Medical History: Reports: Cataracts, Hypothyroidism, Thyroid Disease. Denies: Blood Transfusion Reaction Anesthesia experience/problems:: none Other Surgeries: Yes: Cardiac Catheterization, Colonoscopy, Other. No: Pacemaker Amputation: No Fractures: Yes - *Social History Last grade of school completed: Advanced degree Smoking Status: Never smoker Alcohol Intake: current Alcohol Intake Frequency:: holidays/special occasions only Substance Use Type: denies use *Occupational Status:: employed Housing: house Household Members: spouse *Travel in the last 8 weeks: Inside the [facility] Family Hx:: Cancer, Heart Attack, Stroke, Hyperlipidemia, Hypertension
== END 2019-12-01 14:04 | disposition home or self-care (01) ==
PROVIDERS: PCP Internal Medicine Adolescent Medicine; Visit Provider Internal Medicine Cardiovascular Disease
DX: R41.3 Other amnesia (principal); E78.5 Hyperlipidemia, unspecified; I10 Essential (primary) hypertension; Q21.1 Atrial septal defect
CPT/HCPCS: 85025; 93312; 94762

== ENCOUNTER → 2019-12-22 16:01 | Outpatient (CLI) | payer BC, OTHER, SELFPAY ==
[2019-12-24 15:49] LABS: Covid-19 Nasal PCR Sendout Lex Not Detected
== END ==
PROVIDERS: PCP Internal Medicine Adolescent Medicine; Referring Provider Internal Medicine Adolescent Medicine; Visit Provider Internal Medicine Adolescent Medicine
DX: Z03.818 Encounter for observation for suspected exposure to other biological agents ruled out (principal)
CPT/HCPCS: U0004

== ENCOUNTER → 2019-12-26 16:07 | Outpatient (CLI) | payer BC, OTHER, SELFPAY | PROVIDERS: PCP Internal Medicine Adolescent Medicine; Visit Provider Nurse Practitioner Family | DX: G47.33 Obstructive sleep apnea (adult) (pediatric) (principal); G47.34 Idiopathic sleep related nonobstructive alveolar hypoventilation; Q21.1 Atrial septal defect; G45.4 Transient global amnesia; Z68.33 Body mass index [BMI] 33.0-33.9, adult | CPT/HCPCS: G0399 ==

== ENCOUNTER 2020-01-20 10:45 | Day surgery (SDC) | payer BC, OTHER, SELFPAY ==
[2020-01-20 10:50] VITALS: BP 140/77; PULSE 68; RESP 18; TEMP 36.7; O2SAT 99; BMI 32.8
[2020-01-20 11:35] VITALS: BP 135/80; PULSE 68; RESP 18; O2SAT 99
[2020-01-20 11:53] VITALS: BP 138/88; PULSE 74
[2020-01-20 11:54] VITALS: BP 140/74; PULSE 85; RESP 18; O2SAT 98
--- NOTE | 2020-01-20 12:36 | HMH.PMPROC ---
- Procedure Date: 01/20/20 Time: 12:36 Anesthesiologist:: Celio Malloy MD Complications:: None Pre-procedure Diagnosis:: Degenerative disc disease of lumbar spine with lumbar radiculopathy symptoms Post-procedure Diagnosis:: Same Indications for Procedure:: This patient is a pleasant 69-year-old white male who we are treating for low back pain with lumbar radiculopathy symptoms. He is done very well with his previous epidural steroid injections. He does have some increasing low back pain. He is done well with the back brace we gave him last visit. He has been off of his Plavix for 7 days. We will do a repeat lumbar pleural steroid injection today. Procedure Details:: Lumbar epidural steroid injection under fluoroscopy Informed consent was obtained and the risk and benefits of the procedure was explained to the patient. The patient was taken to the procedure room. The patient was placed prone on the procedure table. The patient was prepped and draped in sterile fashion. C-arm fluoroscopy was used to view the lumbar spine. Skin and subcutaneous tissues were anesthetized using lidocaine. I placed an 18-gauge epidural needle and advanced into the L4-L5 interspace using fluoroscopic guidance and [id number] to air. After confirmation of needle placement in the epidural space with dye I injected 2 mL of lidocaine 1.5% with Depo-Medrol 80 mg. Patient tolerated the procedure well with no complications. Plan and Disposition:: We will follow-up with him in 2 weeks. Will reevaluate symptoms at that time. He can resume his Plavix tomorrow.
== END 2020-01-20 11:35 | disposition home or self-care (01) ==
LOC: SC.PAINP 10:46
PROVIDERS: PCP Internal Medicine Adolescent Medicine; Visit Provider Anesthesiology
DX: M51.16 Intervertebral disc disorders with radiculopathy, lumbar region (principal); Z79.01 Long term (current) use of anticoagulants; I10 Essential (primary) hypertension; Q21.1 Atrial septal defect; Z86.73 Personal history of transient ischemic attack (TIA), and cerebral infarction without residual deficits; E78.5 Hyperlipidemia, unspecified; I25.10 Atherosclerotic heart disease of native coronary artery without angina pectoris; J45.909 Unspecified asthma, uncomplicated; E03.9 Hypothyroidism, unspecified; Z90.49 Acquired absence of other specified parts of digestive tract; Z88.6 Allergy status to analgesic agent; Z88.0 Allergy status to penicillin; Z79.899 Other long term (current) drug therapy; Z79.82 Long term (current) use of aspirin
CPT/HCPCS: 62323; Q9966

== ENCOUNTER → 2020-02-06 08:41 | Outpatient (POV) | payer BC, OTHER, SELFPAY ==
[2020-02-06 09:01] VITALS: BP 138/78; PULSE 85; RESP 18; TEMP 36.8; O2SAT 98; BMI 32.2
--- NOTE | 2020-02-06 09:19 | HMH.PAINSOAP ---
[facility] Pain Management SOAP Note Subjective:: Patient is a pleasant 69-year-old white male who presents today for follow-up. He has been treated for chronic low back pain with lumbar radiculopathy symptoms. Patient has had previous epidural steroid injections for which he gets approximately 3 to 4 months of relief. He rates his pain a 0 out of 10 today. Patient usually undergoes the series of injections every 4 months. Patient is scheduled to undergo the injections again in May. Patient says he does get a great deal of relief with the injections. His pain is primarily worse with standing and walking and improves with sitting. Patient says he gets 90% relief with the injections. He does continue with a home stretching program and ice and heat therapies. He has had physical therapy in the past. Review of Systems General: No recent weight changes, no fever, no sleep disturbances Respiratory: No cough, no shortness of air, no recurring pulmonary infections Cardiovascular/peripheral vascular: No chest pain, no palpitations, no edema, no shortness of breath Gastrointestinal: No new onset incontinence, normal bowel movements reported Genitourinary: No new onset incontinence Musculoskeletal: Low back pain, intermittent leg pain Psychiatric: Normal mood/affect Neurological: [Denies weakness in extremities], [denies balance issues] Objective:: Physical exam General: Alert and oriented x3, no acute distress, pleasant and cooperative, [on room air] Lungs: Respirations even and unlabored, symmetrical chest expansion Eyes: PERRL Musculoskeletal: Flexion and extension of lumbar spine somewhat guarded secondary to pain, deep tendon reflexes normal, strength in upper and lower extremities [5/5], [abnormal gait noted] Neurological: Speech clear, director and professor equal, no gross sensory deficit Assessment:: Degenerative disc disease lumbar spine with lumbar radiculopathy symptoms Plan:: The patient did very well with the epidural steroid injection. We will plan for repeat series of injections at L4-L5. He is not on any anticoagulation therapy. We will plan for these injections in May. The patient gets approximately 4 months of relief with the series of injections. Patient has been instructed to contact the clinic if he does have any pain that presents before his appointment. The patient and I specifically discussed risk factors for COVID19. These risks include, but are not limited to age greater than 60, heart or lung disease, diabetes, immunosuppression, and travel. We also discussed NSAIDs may worsen COVID19 infection or symptoms. Patient should not use NSAIDs to treat COVID19 signs or symptoms. Patient was also informed that any type of corticosteroid of any form (oral or injection) will decrease the patient's immune system response and may increase the likelihood of COVID19 infection and symptoms[address] Dr. Malloy has reviewed this note and agrees with this plan of care. This note was dictated using voice recognition software and make contain errors or omissions. [facility] History I have reviewed the patient's past medical history: Yes Medical History: Reports:: Asthma, Coronary Artery Disease, Hyperlipidemia, Hypertension, Transient Ischemic Attacks (TIA) Denies:: Cancer, Diabetes Mellitus Type 1, Diabetes Mellitus Type 2, Internal Pacemaker, Lung Disease, MRSA, Seizures *Have you ever received a pneumonia vaccine?: Yes *Have you received a flu vaccine this season?: Yes Other Medical History: Reports: Cataracts, Hypothyroidism, Thyroid Disease, Other. Denies: Blood Transfusion Reaction Other Surgeries: Yes: Cardiac Catheterization, Cholecystectomy, Colonoscopy, EGD, Other. No: Pacemaker Amputation: No Fractures: Yes - *Social History Smoking Status: Never smoker Alcohol Intake: never Alcohol Intake Frequency:: holidays/special occasions only Substance Use Type: denies use *Occupational Status:: other Housing: house Household Members: s
== END ==
PROVIDERS: PCP Internal Medicine Adolescent Medicine; Visit Provider Clinical Nurse Specialist Family Health
DX: M51.16 Intervertebral disc disorders with radiculopathy, lumbar region (principal)
CPT/HCPCS: 99212

== ENCOUNTER → 2020-02-27 08:37 | Outpatient (CLI) | payer BC, OTHER, SELFPAY ==
[2020-02-27 09:31] LABS: Basophils % 0.5 % (0.1-2.0); Eosinophils # 0.2 K/mm3 (0.0-0.4); Eosinophils % 2.5 % (0.1-12.0); Hematocrit 44.8 % (42.0-52.0); Hemoglobin 15.3 g/dL (14.1-18.0); Lymphocytes # 1.1 K/mm3 (0.7-4.5); Lymphocytes % 18.8 % (10-50); Mean Corpuscular HGB Conc 34.1 g/dL (31.8-35.4); Mean Corpuscular Hemoglobin 32.9 pg (27.0-31.2); Mean Corpuscular Volume 96.4 fl (80-94); Mean Platelet Volume 8.6 fl (7.4-10.4); Monocytes # 0.4 K/mm3 (0.1-1.0); Monocytes % 7.1 % (1.7-9.3); Neutrophils # 4.1 K/mm3 (1.8-7.8); Neutrophils % 71.1 % (37.0-80.0); Platelet Count 171 K/mm3 (142-424); Red Blood Count 4.65 M/mm3 (4.60-6.20); White Blood Count 5.8 K/mm3 (4.8-10.8)
[2020-02-27 09:54] LABS: Hemoglobin A1C 5.5 % (4.0-6.0)
[2020-02-27 10:15] LABS: Alanine Aminotransferase 27 U/L (12-78); Albumin Level 4.4 g/dl (3.5-5.0); Albumin/Globulin Ratio 1.6 (1.1-1.8); Alkaline Phosphatase 73 U/L (38-126); Amylase 60 U/L (30-110); Anion Gap 14.7 mEq/L (5-15); Aspartate Amino Transferase 28 U/L (17-59); Bilirubin,Total 0.5 mg/dl (0.2-1.3); Blood Urea Nitrogen 24 mg/dl (9-20); Calcium 9.8 mg/dl (8.4-10.2); Carbon Dioxide 25 mmol/L (22.0-30.0); Chloride 105 mmol/L (98-107); Estimated Glomerular Filt Rate 74 ml/min (>60); GFR (African American) 90 ML/MIN (>60); Globulin 2.8 g/dL (1.3-3.2); Glucose 120 mg/dl (74-100); Lipase 13 U/L (23-300); Potassium 4.7 mmoL/L (3.5-5.1); Sodium 140 mmol/L (136-145); Total Protein,Serum 7.2 g/dl (6.3-8.2)
[2020-02-27 10:43] LABS: Thyroid Stimulating Hormone 2.99 uIU/mL (0.465-4.68)
== END ==
PROVIDERS: Visit Provider Internal Medicine Adolescent Medicine
DX: I10 Essential (primary) hypertension (principal); K86.89 Other specified diseases of pancreas; E03.9 Hypothyroidism, unspecified
CPT/HCPCS: 36415; 80053; 82150; 83036; 83690; 84443; 85025

== ENCOUNTER → 2020-02-28 08:35 | Outpatient (CLI) | payer BC, OTHER, SELFPAY ==
--- NOTE | 2020-02-28 08:38 | MR_ITS ---
PROCEDURE: MR ABDOMEN WO/W CON CLINICAL INDICATION: EXOCRINE PANCREATIC INSUFFICIENCY HX PANCREATIC STONES, PT STATES HE HAS TO TAKE DIGESTION MEDS WHEN HE EATS BECAUSE HIS PANCREAS DOESNT FUNCTION PROPERLY. COMPARISON: CT ABDWW CT abdomen wo/w con from 12/14/2017 MR ABDWW MR abdomen wo/w con from 12/21/2017 TECHNIQUE: Routine multiplanar multi echo sequences are performed without gadolinium enhancement. FINDINGS: The liver, spleen, adrenal glands, and kidneys have an unremarkable appearance. There has been a prior cholecystectomy. There is diffuse pancreatic atrophy. No pancreatic mass apparent. No enhancing lesions evident previous CT scan of 12/14/2017 demonstrated multiple punctate calcifications in the pancreas which are better demonstrated on the CT scan. MRCP: Common bile duct and pancreatic duct are normal in caliber. No obvious common duct or pancreatic ductal stones are evident. Previously noted stone in the pancreatic duct is no longer apparent. IMPRESSION: 1. Diffuse pancreatic atrophy. No evidence of pancreatic duct or common bile duct stone or ductal dilatation. 2. Otherwise negative MRI of the abdomen Dictated by: Elvis Maldonado MD 03/02/2020 09:42 Elvis Maldonado MD in [place] 03/02/2020 09:42
== END ==
PROVIDERS: PCP Internal Medicine Adolescent Medicine; Visit Provider Internal Medicine Adolescent Medicine
DX: K86.81 Exocrine pancreatic insufficiency (principal)
CPT/HCPCS: 74183; 76376; A9576

== ENCOUNTER 2020-05-11 09:45 | Day surgery (SDC) | payer BC, OTHER, SELFPAY ==
[2020-05-11 10:18] VITALS: BP 138/90; PULSE 93; RESP 18; TEMP 36.6; O2SAT 98; BMI 33.2
[2020-05-11 11:01] VITALS: BP 133/85; PULSE 85; RESP 18; O2SAT 98
[2020-05-11 11:02] VITALS: BP 138/85; PULSE 88; RESP 18; O2SAT 98
--- NOTE | 2020-05-11 11:12 | HMH.PMPROC ---
- Procedure Date: 05/11/20 Time: 11:12 Anesthesiologist:: Celio Malloy MD Complications:: None Pre-procedure Diagnosis:: Degenerative disc disease of lumbar spine with lumbar radiculopathy symptoms Post-procedure Diagnosis:: Same Indications for Procedure:: Patient is a pleasant 70-year-old white male who we are treating for low back pain with lumbar radiculopathy symptoms. He has increasing low back pain radiating down both legs. He is done well with previous epidural steroid injections. He gets 3 to 4 months relief after series of injections. Pain is starting to return. We will do a repeat lumbar pleural steroid injection under fluoroscopy today. Procedure Details:: Lumbar epidural steroid injection under fluoroscopy Informed consent was obtained and the risk and benefits of the procedure was explained to the patient. The patient was taken to the procedure room. The patient was placed prone on the procedure table. The patient was prepped and draped in sterile fashion. C-arm fluoroscopy was used to view the lumbar spine. Skin and subcutaneous tissues were anesthetized using lidocaine. I placed an 18-gauge epidural needle and advanced into the L4-L5 interspace using fluoroscopic guidance and [id number] to air. After confirmation of needle placement in the epidural space with dye I injected 2 mL of lidocaine 1.5% with Depo-Medrol 80 mg. Patient tolerated the procedure well with no complications. Plan and Disposition:: We will follow-up with him in 2 weeks. Will reevaluate symptoms at that time.
[2020-05-11 11:15] VITALS: BP 138/88; PULSE 77; RESP 18; O2SAT 98
== END 2020-05-11 11:15 | disposition hospice, home (50) ==
LOC: SC.PAINP 09:45
PROVIDERS: PCP Internal Medicine Adolescent Medicine; Visit Provider Anesthesiology
DX: M51.16 Intervertebral disc disorders with radiculopathy, lumbar region (principal); I10 Essential (primary) hypertension; E78.5 Hyperlipidemia, unspecified; F41.9 Anxiety disorder, unspecified; F32.9 Major depressive disorder, single episode, unspecified; Z86.73 Personal history of transient ischemic attack (TIA), and cerebral infarction without residual deficits; Z86.39 Personal history of other endocrine, nutritional and metabolic disease; Z88.5 Allergy status to narcotic agent; Z88.0 Allergy status to penicillin; Z79.82 Long term (current) use of aspirin; Z79.899 Other long term (current) drug therapy
CPT/HCPCS: 62323; J1040; Q9966

== ENCOUNTER → 2020-06-04 08:23 | Outpatient (POV) | payer BC, OTHER, SELFPAY ==
[2020-06-04 08:35] VITALS: BP 133/74; PULSE 74; RESP 18; TEMP 36.8; O2SAT 99; BMI 32.7
--- NOTE | 2020-06-04 08:37 | P.CONS_ITS ---
[facility] [place] Pain Management SOAP Note Subjective:: Patient is a pleasant 70-year-old white male who presents today for follow-up after lumbar epidural steroid injection. Patient rates his pain a 0 out of 10 overall doing extremely well he gets 90% relief with his epidural and it last for several months. Patient is continuing his Flexeril 10 mg as needed. Patient states he takes it seldomly however he is doing well. ROS General: no recent weight change, no fever, no sleep disturbances Respiratory: no cough, no shortness of air, no recurring pulmonary infections Cardiovascular/Peripheral Vascular: No chest pain, No palpitations, no edema, no shortness of breath. Gastrointestinal: no new onset incontinence, normal bowel movements reported Genitourinary: no new onset incontinence Musculoskeletal: Back pain, leg pain Psychiatric: normal mood/ affect Neurological: [denies new onset weakness in extremities], [denies new onset balance issues] Objective:: physical Exam General: Alert and oriented x3, no acute distress, pleasant and cooperative, [on room air] Lungs: Resps E/U, Symmetrical chest expansion, [CTA bilateral] Eyes: PERRL Musculoskeletal: Flexion and extension of lumbar spine somewhat guarded secondary to pain, deep tendon reflexes normal, strength in upper and lower extremities [5/5], slightly antalgic gait noted Neurological: speech clear, raw stock machine feeder equal, no gross sensory deficits Assessment:: Degenerative disc disease lumbar spine lumbar radiculopathy Plan:: We will schedule the patient for an L4-L5 lumbar epidural steroid injection in September. Patient overall doing well. He is not on any anticoagulation therapy. He is been instructed to call the office if the has any issues prior to his next appointment. I believe given the efficacy of this this would be beneficial for him. We will also continue his Flexeril. Dr. Malloy has reviewed this note and agrees with this plan of care. This note was dictated using voice recognition software and may contain errors or omissions [facility] [place] History I have reviewed the patient's past medical history: Yes Medical History: Reports:: Asthma, Coronary Artery Disease, Hyperlipidemia, Hypertension, Transient Ischemic Attacks (TIA) Denies:: Cancer, Diabetes Mellitus Type 1, Diabetes Mellitus Type 2, Internal Pacemaker, Lung Disease, MRSA, Seizures *Have you ever received a pneumonia vaccine?: Yes *Have you received a flu vaccine this season?: Yes Other Medical History: Reports: Cataracts, Hypothyroidism, Thyroid Disease, Other. Denies: Blood Transfusion Reaction Other Surgeries: Yes: Cardiac Catheterization, Cholecystectomy, Colonoscopy, EGD, Other. No: Pacemaker Amputation: No Fractures: Yes - *Social History Smoking Status: Never smoker Alcohol Intake: never Alcohol Intake Frequency:: a few times a month Substance Use Type: denies use *Occupational Status:: other Housing: house Household Members: spouse *Travel in the last 8 weeks: None Family Hx:: Cancer, Heart Attack, Stroke, Hyperlipidemia, Hypertension
== END ==
PROVIDERS: PCP Internal Medicine Adolescent Medicine; Visit Provider Clinical Nurse Specialist Family Health
DX: M51.16 Intervertebral disc disorders with radiculopathy, lumbar region (principal)
CPT/HCPCS: 99212; G0463

== ENCOUNTER 2020-09-07 08:54 | Day surgery (SDC) | payer BC, OTHER, SELFPAY ==
[2020-09-07 08:56] VITALS: BP 116/71; PULSE 83; RESP 18; TEMP 36.4; O2SAT 96; BMI 33.3
[2020-09-07 09:16] VITALS: BP 124/72; PULSE 74; RESP 18
[2020-09-07 09:18] VITALS: BP 128/75; PULSE 76; RESP 18; O2SAT 99
--- NOTE | 2020-09-07 09:25 | HMH.PMPROC ---
- Procedure Date: 09/07/20 Time: 09:25 Anesthesiologist:: Celio Malloy MD Complications:: None Pre-procedure Diagnosis:: Degenerative disc disease of lumbar spine with lumbar radiculopathy symptoms Post-procedure Diagnosis:: Same Indications for Procedure:: Patient is a pleasant 70-year-old white male who we are treating for low back pain with lumbar radiculopathy symptoms. Of his pain is primarily in the low back. He gets 80 to 90% relief with epidural steroid injections for several months. We will plan on a repeat lumbar epidural steroid injection under fluoroscopy as his pain is starting to return. Procedure Details:: Informed consent was obtained and the risk and benefits of the procedure was explained to the patient. The patient was taken to the procedure room. The patient was placed prone on the procedure table. The patient was prepped and draped in sterile fashion. C-arm fluoroscopy was used to view the lumbar spine. Skin and subcutaneous tissues were anesthetized using lidocaine. I placed an 18-gauge epidural needle and advanced into the L4-L5 interspace using fluoroscopic guidance and [id number] to air. After confirmation of needle placement in the epidural space with dye I injected 2 mL of lidocaine 1.5% with Depo-Medrol 80 mg. Patient tolerated the procedure well with no complications. Plan and Disposition:: We will follow-up with him in 2 weeks. Will reevaluate his symptoms at that time.
[2020-09-07 09:34] VITALS: BP 109/71; PULSE 74; RESP 18; O2SAT 96
== END 2020-09-07 09:35 | disposition home or self-care (01) ==
LOC: SC.PAINP 08:54
PROVIDERS: PCP Internal Medicine Adolescent Medicine; Visit Provider Anesthesiology
DX: M51.16 Intervertebral disc disorders with radiculopathy, lumbar region (principal); I10 Essential (primary) hypertension; E78.5 Hyperlipidemia, unspecified; E03.9 Hypothyroidism, unspecified; Z88.0 Allergy status to penicillin; Z88.5 Allergy status to narcotic agent
CPT/HCPCS: 62323; J1040; Q9966

== ENCOUNTER → 2020-10-04 11:10 | Outpatient (POV) | payer BC, OTHER, SELFPAY ==
[2020-10-04 11:17] VITALS: BP 133/67; PULSE 90; RESP 18; O2SAT 95; BMI 33.0
--- NOTE | 2020-10-04 11:20 | HMH.PAINSOAP ---
[facility] Pain Management SOAP Note Subjective:: Patient is a 70-year-old white male who presents today for follow-up after a lumbar epidural steroid injection. Patient says his pain is a 1 out of 10 today. He is doing well after his injection. He gets injections every 3 to 4 months and says that he gets significant relief. When his pain does return it is in his low back radiating into bilateral lower extremities. His pain is worse in the low back, however. He gets between 80 to 90% relief with the injections. He is scheduled for a repeat injection in January. Patient has been managed with [facility], however, due to pricing, we discussed changing him to ibuprofen. He does have a refill on the Pepcid. He does continue with home stretching and ice and heat therapies. Review of Systems General: No recent weight changes, no fever, no sleep disturbances Respiratory: No cough, no shortness of air, no recurring pulmonary infections Cardiovascular/peripheral vascular: No chest pain, no palpitations, no edema, no shortness of breath Gastrointestinal: No new onset incontinence, normal bowel movements reported Genitourinary: No new onset incontinence Musculoskeletal: Low back pain Psychiatric: Normal mood/affect Neurological: [Denies weakness in extremities], [denies balance issues] Objective:: Physical exam General: Alert and oriented x3, no acute distress, pleasant and cooperative, [on room air] Lungs: Respirations even and unlabored, symmetrical chest expansion Eyes: PERRL Musculoskeletal: Flexion and extension of lumbar spine somewhat guarded secondary to pain, deep tendon reflexes normal, strength in upper and lower extremities [5/5], [abnormal gait noted] Neurological: Speech clear, housecleaner floor equal, no gross sensory deficit Assessment:: Degenerative disc disease lumbar spine with lumbar radicular symptoms Plan:: Patient is scheduled for a repeat lumbar epidural steroid injection at L4-L5 in January. He is not on anticoagulation therapy. We we will order the patient ibuprofen 800 mg 1 tablet p.o. 3 times daily. He does have Pepcid that he can take also with this. We will see him after his injection in January to reevaluate his symptoms. Risks and benefits of the procedure have been explained to the patient. Patient would like to proceed with the procedure. Patient has been instructed to contact the clinic with any concerns before the next appointment. Dr. Malloy has reviewed this note and agrees with this plan of care. This note was dictated using voice recognition software and make contain errors or omissions. [facility] History I have reviewed the patient's past medical history: Yes Medical History: Reports:: Asthma, Coronary Artery Disease, Hyperlipidemia, Hypertension, Transient Ischemic Attacks (TIA) Denies:: Cancer, Diabetes Mellitus Type 1, Diabetes Mellitus Type 2, Internal Pacemaker, Lung Disease, MRSA, Seizures *Have you ever received a pneumonia vaccine?: Yes *Have you received a flu vaccine this season?: Yes Other Medical History: Reports: Cataracts, Hypothyroidism, Thyroid Disease, Other. Denies: Blood Transfusion Reaction Other Surgeries: Yes: Cardiac Catheterization, Cholecystectomy, Colonoscopy, EGD, Other. No: Pacemaker Amputation: No Fractures: Yes - *Social History Smoking Status: Never smoker Alcohol Intake: never Alcohol Intake Frequency:: a few times a month Substance Use Type: denies use *Occupational Status:: employed Housing: house Household Members: spouse *Travel in the last 8 weeks: None Family Hx:: Cancer, Heart Attack, Stroke, Hyperlipidemia, Hypertension
== END ==
PROVIDERS: PCP Internal Medicine Adolescent Medicine; Visit Provider Clinical Nurse Specialist Family Health
DX: M51.16 Intervertebral disc disorders with radiculopathy, lumbar region (principal)
CPT/HCPCS: 99212; G0463

== ENCOUNTER → 2020-10-16 11:09 | Outpatient (CLI) | payer BC, OTHER, SELFPAY | PROVIDERS: Visit Provider Surgery | DX: Z01.812 Encounter for preprocedural laboratory examination (principal); Z20.822 Contact with and (suspected) exposure to COVID-19; Z12.11 Encounter for screening for malignant neoplasm of colon | CPT/HCPCS: U0003 ==

== ENCOUNTER 2020-10-18 08:21 | Day surgery (SDC) | payer BC, OTHER, SELFPAY ==
[2020-10-11 13:36] VITALS: BMI 32.4
--- NOTE | 2020-10-18 08:44 | P.PN_ITS ---
[facility] Anesthesia Checklist - Patient Identification Patient Identification: Arm Band - Structural Data Admitted From: Home Planned Operative Procedure/s: Colonoscopy Consent for Planned Operative Procedure(s) Verified: Yes - NPO Status Verified Time NPO: 05:30 (Prep) - Additional verifications Anesthesia Reactions: No Hx Blood Transfusions: No Blood Transfusion Reaction: No - Airway Assessment C-Spine Mobility Assessed: Yes TMJ Mobility Assessed: Yes Dentition: Good Dentition (Several crowns) - Anesthesia Plan Anesthesia Risk discussed: Yes Anesthesia Plan: Verified ASA Class: III Anesthesia Type: MAC [facility] History I have reviewed the patient's past medical history: Yes Medical History: Reports:: Asthma, Coronary Artery Disease, Hyperlipidemia, Hypertension, Transient Ischemic Attacks (TIA) (Global amnesia) Denies:: Cancer, Diabetes Mellitus Type 1, Diabetes Mellitus Type 2, Internal Pacemaker, Lung Disease, MRSA, Seizures *Have you ever received a pneumonia vaccine?: Yes *Have you received a flu vaccine this season?: Yes Other Medical History: Reports: Cataracts, Hypothyroidism, Thyroid Disease, Other (PFO). Denies: Blood Transfusion Reaction Anesthesia experience/problems:: None Other Surgeries: Yes: Cardiac Catheterization, Cholecystectomy, Colonoscopy, EGD, Other. No: Pacemaker Amputation: No Fractures: Yes - *Social History Last grade of school completed: High school graduate Smoking Status: Never smoker Alcohol Intake: never Alcohol Intake Frequency:: a few times a month Substance Use Type: denies use *Occupational Status:: unemployed Housing: house Household Members: spouse *Travel in the last 8 weeks: None Family Hx:: Cancer, Heart Attack, Stroke, Hyperlipidemia, Hypertension
[2020-10-18 08:51] VITALS: BP 129/71; PULSE 94; RESP 18; TEMP 36.4; O2SAT 96
[2020-10-18 10:03] VITALS: O2SAT 97
--- NOTE | 2020-10-18 10:34 | HMH.SCOPE ---
- Procedure: Date: 10/18/20 Patient Date of :: 1950 Procedure Performed:: Colonoscopy with polypectomy by means other than snare Indications:: History of colon polyps Performing Provider:: Dell Lebron MD Referring Provider:: . Sedation:: Monitored anesthesia care Procedure:: After informed consent was obtained the patient was taken to the endoscopy suite. Sedation ensued after the patient was transferred to the left lateral decubitus position. Pulse, blood pressure, and oxygen saturation were monitored throughout the procedure. Digital rectal exam revealed no significant abnormality. The colonoscope was placed in position. The entire colon was evaluated. The colonoscope was carefully removed and the patient was transferred to recovery in stable condition. Please see findings and specimens below for detail. Findings:: Bowel preparation fair to moderate Fairly severe colonic tortuosity Moderate to severe spasticity Minimal hemorrhoidal cushions Minuscule sigmoid diverticuli Polyps (see specimens) Specimens:: Cecal polyp Splenic flexure polyp Recommendations:: Timing of repeat colonoscopy is pending pathology but will likely be between 3-5 years. Complications:: No immediate Estimated blood obtained (mL): 1
[2020-10-18 10:35] VITALS: BP 84/59; PULSE 75; RESP 16; TEMP 36.9; O2SAT 98
[2020-10-18 10:45] VITALS: BP 97/57; PULSE 75; RESP 18; O2SAT 98
[2020-10-18 10:55] VITALS: BP 94/57; PULSE 74; RESP 16; O2SAT 95
[2020-10-18 11:05] VITALS: BP 101/65; PULSE 74; RESP 16; O2SAT 95
== END 2020-10-18 11:05 | disposition home or self-care (01) ==
LOC: OUTP 08:23
PROVIDERS: PCP Internal Medicine Adolescent Medicine; Visit Provider Surgery
PROC: 0DJD8ZZ Inspection of Lower Intestinal Tract, Via Natural or Artificial Opening Endoscopic (ICD-10-PCS; CPT 45380; principal; 2020-10-18 09:30)
DX: Z12.11 Encounter for screening for malignant neoplasm of colon (principal); D12.0 Benign neoplasm of cecum; D12.3 Benign neoplasm of transverse colon; K56.2 Volvulus; K57.30 Diverticulosis of large intestine without perforation or abscess without bleeding; K58.9 Irritable bowel syndrome, unspecified; K64.9 Unspecified hemorrhoids; Z86.010 Personal history of colon polyps; J45.909 Unspecified asthma, uncomplicated; I10 Essential (primary) hypertension; E78.5 Hyperlipidemia, unspecified; I25.10 Atherosclerotic heart disease of native coronary artery without angina pectoris
CPT/HCPCS: 45380

== ENCOUNTER 2021-01-11 08:33 | Day surgery (SDC) | payer BC, OTHER, SELFPAY ==
[2021-01-11 08:49] VITALS: BP 136/67; PULSE 77; RESP 18; TEMP 36.6; O2SAT 97; BMI 32.4
[2021-01-11 09:25] VITALS: BP 134/80; PULSE 70; RESP 18; O2SAT 96
[2021-01-11 09:26] VITALS: BP 137/82; PULSE 68; RESP 18; O2SAT 98
[2021-01-11 09:40] VITALS: BP 131/82; PULSE 79; RESP 20; O2SAT 97
--- NOTE | 2021-01-11 09:57 | HMH.PMPROC ---
- Procedure Date: 01/11/21 Time: 09:57 Anesthesiologist:: Celio Malloy MD Complications:: None Pre-procedure Diagnosis:: Degenerative disc disease of lumbar spine with lumbar radiculopathy symptoms Post-procedure Diagnosis:: Same Indications for Procedure:: Patient is a pleasant 70-year-old white male who we are treating for low back pain with lumbar radiculopathy symptoms. He has increasing pain in his low back rating down both legs. He has benefited from these injections in the past which is helped him for several months. Pain is starting to return we will do repeat lumbar pleural steroid injection under fluoroscopy today. Procedure Details:: Informed consent was obtained and the risk and benefits of the procedure was explained to the patient. The patient was taken to the procedure room. The patient was placed prone on the procedure table. The patient was prepped and draped in sterile fashion. C-arm fluoroscopy was used to view the lumbar spine. Skin and subcutaneous tissues were anesthetized using lidocaine. I placed an 18-gauge epidural needle and advanced into the L4-L5 interspace using fluoroscopic guidance and [id number] to air. After confirmation of needle placement in the epidural space with dye I injected 2 mL of lidocaine 1.5% with Depo-Medrol 80 mg. Patient tolerated the procedure well with no complications. Plan and Disposition:: We will follow-up with him in 2 weeks. Will reevaluate his symptoms at that time.
== END 2021-01-11 09:40 | disposition home or self-care (01) ==
LOC: SC.PAINP 08:35
PROVIDERS: PCP Internal Medicine Adolescent Medicine; Visit Provider Anesthesiology
DX: M51.16 Intervertebral disc disorders with radiculopathy, lumbar region (principal); I25.10 Atherosclerotic heart disease of native coronary artery without angina pectoris; E78.5 Hyperlipidemia, unspecified; I10 Essential (primary) hypertension; J45.909 Unspecified asthma, uncomplicated; E03.9 Hypothyroidism, unspecified; Z86.73 Personal history of transient ischemic attack (TIA), and cerebral infarction without residual deficits; Z88.0 Allergy status to penicillin; Z88.6 Allergy status to analgesic agent; Z79.82 Long term (current) use of aspirin; Z79.899 Other long term (current) drug therapy
CPT/HCPCS: 62323; J1040; Q9966

== ENCOUNTER → 2021-03-04 17:23 | Outpatient (CLI) | payer BC, OTHER, SELFPAY ==
[2021-03-04 20:46] LABS: Blood Urea Nitrogen 17 mg/dl (9-20); Estimated Glomerular Filt Rate 83 ml/min (>60); GFR (African American) 101 ML/MIN (>60)
== END ==
PROVIDERS: Visit Provider Internal Medicine Adolescent Medicine
DX: G45.9 Transient cerebral ischemic attack, unspecified (principal)
CPT/HCPCS: 36415; 82565; 84520

== ENCOUNTER → 2021-03-05 11:14 | Outpatient (CLI) | payer BC, OTHER, SELFPAY ==
--- NOTE | 2021-03-05 11:19 | MR_ITS ---
PROCEDURE: MR HEAD/BRAIN WO/W CON CLINICAL INDICATION: TIA Global amnesia COMPARISON: CT CTHEAD CT Request head from 06/16/[address] HEAD/BRAIN WO CON from 08/17/2019 TECHNIQUE: Routine multiplanar multi echo sequences are performed without gadolinium enhancement. FINDINGS: No evidence of acute infarction. No midline shift or mass effect. No acute intracranial hemorrhage. The cerebellopontine angles have an unremarkable appearance. Small perivascular dilated spaces noted. There are few scattered small T2 hyperintensities of the white-matter suggesting small ischemic gliotic foci. There is mild generalized atrophy. No enhancing lesions evident. No midline shift or mass effect. The pituitary, optic chiasm, corpus callosum, and craniocervical junction have an unremarkable appearance. There is mild vascular ectasia of the basilar and carotid arteries. No mastoid effusion or sinus air-fluid level. IMPRESSION: No acute intracranial findings. Dictated by: Elvis Maldonado MD 03/06/2021 09:10 Elvis Maldonado MD in [facility] 03/06/2021 09:10
== END ==
PROVIDERS: PCP Internal Medicine Adolescent Medicine; Visit Provider Internal Medicine
DX: G45.9 Transient cerebral ischemic attack, unspecified (principal)
CPT/HCPCS: 70553; A9576

== ENCOUNTER → 2021-04-05 08:59 | Outpatient (CLI) | payer BC, OTHER, SELFPAY ==
[2021-04-05 11:10] LABS: Prostate Specific Ag Screen 1.6 ng/ml (0.0-4.0)
== END ==
PROVIDERS: Visit Provider Urology
DX: Z12.5 Encounter for screening for malignant neoplasm of prostate (principal); Z20.822 Contact with and (suspected) exposure to COVID-19
CPT/HCPCS: 36415; G0103; C9803; U0003; U0005

== ENCOUNTER → 2021-04-11 20:01 | Outpatient (CLI) | payer BC, OTHER, SELFPAY | PROVIDERS: PCP Internal Medicine Adolescent Medicine; Visit Provider Nurse Practitioner Family | DX: G47.33 Obstructive sleep apnea (adult) (pediatric) (principal) | CPT/HCPCS: 95811 ==

== ENCOUNTER → 2021-05-01 09:17 | Outpatient (CLI) | payer BC, OTHER, SELFPAY ==
[2021-05-01 10:20] LABS: Alanine Aminotransferase 29 U/L (12-78); Albumin/Globulin Ratio 1.5 (1.1-1.8); Alkaline Phosphatase 73 U/L (38-126); Anion Gap 10.6 mEq/L (5-15); Aspartate Amino Transferase 30 U/L (17-59); Bilirubin,Total 0.2 mg/dl (0.2-1.3); Blood Urea Nitrogen 22 mg/dl (9-20); Calcium 9.1 mg/dl (8.4-10.2); Carbon Dioxide 27 mmol/L (22.0-30.0); Chloride 105 mmol/L (98-107); Estimated Glomerular Filt Rate 66 ml/min (>60); GFR (African American) 80 ML/MIN (>60); Globulin 2.6 g/dL (1.3-3.2); Glucose 121 mg/dl (74-100); Potassium 4.6 mmoL/L (3.5-5.1); Sodium 138 mmol/L (136-145); Total Protein,Serum 6.6 g/dl (6.3-8.2)
[2021-05-01 10:54] LABS: Thyroid Stimulating Hormone 2.75 uIU/mL (0.465-4.68)
== END ==
PROVIDERS: Visit Provider Internal Medicine Adolescent Medicine
DX: E03.9 Hypothyroidism, unspecified (principal)
CPT/HCPCS: 36415; 80053; 84443

== ENCOUNTER 2021-05-08 10:03 | Day surgery (SDC) | payer BC, OTHER, SELFPAY ==
[2021-05-08 10:17] VITALS: BP 128/77; PULSE 80; RESP 20; TEMP 36.7; O2SAT 95; BMI 32.8
[2021-05-08 10:37] VITALS: BP 133/77; PULSE 72; RESP 18; O2SAT 96
[2021-05-08 10:39] VITALS: BP 141/79; PULSE 79; RESP 18; O2SAT 96
[2021-05-08 10:54] VITALS: BP 144/84; PULSE 81; RESP 20; O2SAT 95
--- NOTE | 2021-05-08 11:01 | HMH.PMPROC ---
- Procedure Date: 05/08/21 Time: 11:01 Anesthesiologist:: Celio Malloy MD Complications:: None Pre-procedure Diagnosis:: Degenerative disc disease of lumbar spine with lumbar radiculopathy symptoms Post-procedure Diagnosis:: Same Indications for Procedure:: Patient is a pleasant 71-year-old white male who we are treating for low back pain with lumbar radiculopathy symptoms. He does have some increasing pain in his low back radiating down both legs. He does well with epidural steroid injections with 2 to 3 months of relief. He is 70 to 80% better after these injections. Since his pain has returned we will do repeat lumbar epidural steroid injection under fluoroscopy today. Procedure Details:: Informed consent was obtained and the risk and benefits of the procedure was explained to the patient. The patient was taken to the procedure room. The patient was placed prone on the procedure table. The patient was prepped and draped in sterile fashion. C-arm fluoroscopy was used to view the lumbar spine. Skin and subcutaneous tissues were anesthetized using lidocaine. I placed an 18-gauge epidural needle and advanced into the L4-L5 interspace using fluoroscopic guidance and [id number] to air. After confirmation of needle placement in the epidural space with dye I injected 2 mL of lidocaine 1.5% with Depo-Medrol 80 mg. Patient tolerated the procedure well with no complications. Plan and Disposition:: We will follow-up with him in 2 weeks. Will reevaluate his symptoms at that time.
== END 2021-05-08 10:50 | disposition home or self-care (01) ==
LOC: SC.PAINP 10:05
PROVIDERS: PCP Internal Medicine Adolescent Medicine; Visit Provider Anesthesiology
DX: M51.16 Intervertebral disc disorders with radiculopathy, lumbar region (principal); E78.5 Hyperlipidemia, unspecified; I10 Essential (primary) hypertension; Z86.73 Personal history of transient ischemic attack (TIA), and cerebral infarction without residual deficits; Z88.0 Allergy status to penicillin; Z88.5 Allergy status to narcotic agent
CPT/HCPCS: 62323; J1040; Q9966

== ENCOUNTER 2021-08-23 09:22 | Day surgery (SDC) | payer BC, OTHER, SELFPAY ==
[2021-08-23 09:31] VITALS: BP 148/85; PULSE 101; RESP 18; TEMP 36.5; O2SAT 96; BMI 33.2
[2021-08-23 09:40] VITALS: BP 133/76; PULSE 110; RESP 18; O2SAT 96
--- NOTE | 2021-08-23 09:40 | HMH.PMPROC ---
- Procedure Date: 08/23/21 Time: 09:40 Anesthesiologist:: Ji Chua CRNA Complications:: None Pre-procedure Diagnosis:: Degenerative disc disease lumbar spine levels. Post-procedure Diagnosis:: Same Indications for Procedure:: Very pleasant 71-year-old white male we have been treating for quite some time in our clinic regarding low back pain as well as bilateral hip and leg radicular symptoms. Patient is responded very well to lumbar epidural steroid injections in the past. He presents today for therapeutic lumbar epidural steroid injection at the L4-5 level. Procedure Details:: Procedure: Lumbar epidural steroid injection under fluoroscopy Informed consent was obtained and the risks and benefits of the procedure were explained to the patient. The patient was taken to the procedure room and noninvasive monitors placed, including noninvasive blood pressure cuff and pulse oximeter. The back was viewed using C-arm Fluoroscopy and prepped using Betadine as a cleansing solution and the L4-L5 interspace was palpated. Skin and subcutaneous tissues were anesthetized using lidocaine 1.5% and a 25-gauge needle. After this, an 18-gauge Touhy epidural needle was placed into the L4-L5 interspace and advanced using fluoroscopic guidance and loss of resistance to air until the epidural space was encountered. After confirmation of needle placement in the epidural space, with dye, a solution containing lidocaine 1.5%, 4 mL and Depo-Medrol 80 mg were incrementally injected into the lumbar epidural space. The patient tolerated the procedure well with no complications. The patient was observed in the Pain Clinic and then discharged home neurologically intact. Plan and Disposition:: Patient was discharged home without difficulty. He will return to see us on an as-needed basis.
[2021-08-23 09:41] VITALS: PULSE 107; RESP 18; O2SAT 97
[2021-08-23 09:49] VITALS: BP 140/91; PULSE 105; RESP 18; O2SAT 96
== END 2021-08-23 09:50 | disposition home or self-care (01) ==
LOC: SC.PAINP 09:23
PROVIDERS: PCP Internal Medicine Adolescent Medicine; Visit Provider Nurse Anesthetist, Certified Registered
DX: M51.36 Other intervertebral disc degeneration, lumbar region (principal); J45.909 Unspecified asthma, uncomplicated; I25.10 Atherosclerotic heart disease of native coronary artery without angina pectoris; E78.5 Hyperlipidemia, unspecified; I10 Essential (primary) hypertension; E03.9 Hypothyroidism, unspecified; J98.4 Other disorders of lung; Z86.73 Personal history of transient ischemic attack (TIA), and cerebral infarction without residual deficits; Z88.0 Allergy status to penicillin; Z88.5 Allergy status to narcotic agent
CPT/HCPCS: 62323; J1040

== ENCOUNTER 2022-01-14 08:46 | Day surgery (SDC) | payer BC, OTHER, SELFPAY ==
[2022-01-14 09:00] VITALS: BP 120/79; PULSE 91; RESP 20; O2SAT 97; BMI 33.2
[2022-01-14 09:07] VITALS: BP 134/76; PULSE 95; RESP 18; O2SAT 97
[2022-01-14 09:09] VITALS: BP 127/81; PULSE 95; RESP 18; O2SAT 97
--- NOTE | 2022-01-14 09:15 | EXP.PAIN.PRO ---
Procedure Date: 01/14/22 Time: 09:15 Anesthesiologist:: Ji Chua CRNA Complications:: None Pre-procedure Diagnosis:: Degenerative disc disease lumbar spine multilevels. Lumbar radiculopathy. Post-procedure Diagnosis:: Same Indications for Procedure:: Very pleasant 71-year-old male comes our clinic today for a repeat lumbar epidural steroid injection at L4-5 level. Patient has had this injection before with significant improvement terms of low back pain as well as bilateral hip and leg radicular symptoms Procedure Details:: Procedure: Lumbar epidural steroid injection under fluoroscopy Informed consent was obtained and the risks and benefits of the procedure were explained to the patient. The patient was taken to the procedure room and noninvasive monitors placed, including noninvasive blood pressure cuff and pulse oximeter. The back was viewed using C-arm Fluoroscopy and prepped using Betadine as a cleansing solution and the L4-L5 interspace was palpated. Skin and subcutaneous tissues were anesthetized using lidocaine 1.5% and a 25-gauge needle. After this, an 18-gauge Touhy epidural needle was placed into the L4-L5 interspace and advanced using fluoroscopic guidance and loss of resistance to air until the epidural space was encountered. After confirmation of needle placement in the epidural space, with dye, a solution containing lidocaine 1.5%, 4 mL and Depo-Medrol 80 mg were incrementally injected into the lumbar epidural space. The patient tolerated the procedure well with no complications. The patient was observed in the Pain Clinic and then discharged home neurologically intact. Plan and Disposition:: Patient was discharged without incident
[2022-01-14 09:22] VITALS: BP 133/76; PULSE 87; RESP 20; O2SAT 96
== END 2022-01-14 09:23 | disposition home or self-care (01) ==
PROVIDERS: PCP Internal Medicine Adolescent Medicine; Visit Provider Nurse Anesthetist, Certified Registered
DX: M51.16 Intervertebral disc disorders with radiculopathy, lumbar region (principal)
CPT/HCPCS: 62323; J1040

== ENCOUNTER → 2022-03-01 09:29 | Outpatient (CLI) | payer BC, OTHER, SELFPAY ==
[2022-03-01 11:02] LABS: Basophils # 0.1 K/mm3 (0-0.2); Basophils % 0.8 % (0.1-2.0); Eosinophils # 0.3 K/mm3 (0.0-0.4); Eosinophils % 4.7 % (0.1-12.0); Hematocrit 37.5 % (42.0-52.0); Hemoglobin 12.1 g/dL (14.1-18.0); Lymphocytes # 1.7 K/mm3 (0.7-4.5); Lymphocytes % 28.4 % (10-50); Mean Corpuscular HGB Conc 32.3 g/dL (31.8-35.4); Mean Corpuscular Hemoglobin 30.7 pg (27.0-31.2); Mean Platelet Volume 9.3 fl (7.4-10.4); Monocytes # 0.4 K/mm3 (0.1-1.0); Neutrophils # 3.5 K/mm3 (1.8-7.8); Neutrophils % 59.1 % (37.0-80.0); Platelet Count 199 K/mm3 (142-424); Red Blood Count 3.94 M/mm3 (4.60-6.20); White Blood Count 5.9 K/mm3 (4.8-10.8)
[2022-03-01 11:32] LABS: Alanine Aminotransferase 30 U/L (12-78); Albumin Level 3.7 g/dl (3.5-5.0); Albumin/Globulin Ratio 1.4 (1.1-1.8); Alkaline Phosphatase 93 U/L (38-126); Amylase 49 U/L (30-110); Anion Gap 14.7 mEq/L (5-15); Aspartate Amino Transferase 28 U/L (17-59); Bilirubin,Total 0.3 mg/dl (0.2-1.3); Blood Urea Nitrogen 28 mg/dl (9-20); Calcium 8.7 mg/dl (8.4-10.2); Carbon Dioxide 28 mmol/L (22.0-30.0); Chloride 105 mmol/L (98-107); Estimated Glomerular Filt Rate 66 ml/min (>60); GFR (African American) 80 ML/MIN (>60); Globulin 2.6 g/dL (1.3-3.2); Glucose 110 mg/dl (74-100); Potassium 4.7 mmoL/L (3.5-5.1); Sodium 143 mmol/L (136-145); Total Protein,Serum 6.3 g/dl (6.3-8.2)
[2022-03-01 11:42] LABS: Lipase < 10 U/L (23-300)
[2022-03-01 11:49] LABS: Free Thyroxine Index 2.9 ug/dL (5.93-13.13); T4 (Thyroxine) 7.6 ug/dl (5.53-11.0); Triiodothryronine (T3) Uptake 38 % (23.5-40.5)
[2022-03-01 12:03] LABS: Thyroid Stimulating Hormone 1.43 uIU/mL (0.465-4.68)
[2022-03-01 12:04] LABS: Prostate Specific Ag Screen 1.3 ng/ml (0.0-4.0)
[2022-03-02 08:10] LABS: CA 19-9 21 U/mL (0-35); CEA 1.5 ng/mL (0.0-4.7)
== END ==
PROVIDERS: PCP Internal Medicine Adolescent Medicine; Visit Provider Internal Medicine Adolescent Medicine
DX: R10.84 Generalized abdominal pain (principal); R00.0 Tachycardia, unspecified; K86.1 Other chronic pancreatitis; E29.1 Testicular hypofunction; Z12.5 Encounter for screening for malignant neoplasm of prostate
CPT/HCPCS: 36415; 80053; 82150; 82378; 83690; 84436; 84443; 84479; 85025; 86316; G0103

== ENCOUNTER 2022-05-13 08:00 | Day surgery (SDC) | payer BC, OTHER, SELFPAY ==
[2022-05-13 08:12] VITALS: BP 122/73; PULSE 85; RESP 18; TEMP 36.6; O2SAT 96; BMI 32.1
[2022-05-13 08:30] VITALS: BP 134/77; PULSE 94; RESP 18; O2SAT 95
[2022-05-13 08:31] VITALS: BP 134/77; PULSE 94; RESP 18; O2SAT 95
[2022-05-13 08:37] VITALS: BP 124/73; PULSE 74; RESP 18; O2SAT 94
--- NOTE | 2022-05-13 08:58 | EXP.PAIN.PRO ---
Procedure Date: 05/13/22 Time: 08:10 Anesthesiologist:: Ji Chua CRNA Complications:: None Pre-procedure Diagnosis:: Degenerative disc disease lumbar spine multilevels. Lumbar radiculopathy. Post-procedure Diagnosis:: Same. Indications for Procedure:: This patient is a pleasant 71-year-old male that comes our clinic today for lumbar epidural steroid injection. Patient has had these in the past with significant improvement terms of low back pain as well as bilateral hip and leg pain. Today he rates his pain 6/10. Procedure Details:: Procedure: Lumbar epidural steroid injection under fluoroscopy Informed consent was obtained and the risks and benefits of the procedure were explained to the patient. The patient was taken to the procedure room and noninvasive monitors placed, including noninvasive blood pressure cuff and pulse oximeter. The back was viewed using C-arm Fluoroscopy and prepped using Chloraprep as a cleansing solution and the L4-L5 interspace was palpated. Skin and subcutaneous tissues were anesthetized using lidocaine 1.5% and a 25-gauge needle. After this, an 18-gauge Touhy epidural needle was placed into the L4-L5 interspace and advanced using fluoroscopic guidance and loss of resistance to air until the epidural space was encountered. After confirmation of needle placement in the epidural space, with dye, a solution containing normal saline, 3 mL and Depo-Medrol 80 mg were incrementally injected into the lumbar epidural space. The patient tolerated the procedure well with no complications. The patient was observed in the Pain Clinic and then discharged home neurologically intact. Plan and Disposition:: Patient was discharged without incident.
--- NOTE | 2022-08-12 15:23 | PC.NURSE ---
called in Rx for Flexeril 10mg PO daily PRN #30 with no refills to Clinic pharmacy.
== END 2022-05-13 08:37 | disposition home or self-care (01) ==
LOC: SC.PAINP 08:01
PROVIDERS: PCP Internal Medicine Adolescent Medicine; Visit Provider Nurse Anesthetist, Certified Registered
DX: M51.16 Intervertebral disc disorders with radiculopathy, lumbar region (principal)
CPT/HCPCS: 62323; J1040

== ENCOUNTER 2022-12-16 08:31 | Day surgery (SDC) | payer BC, OTHER, SELFPAY ==
[2022-12-11 13:58] VITALS: BMI 30.5
[2022-12-16 08:46] VITALS: BP 130/71; PULSE 81; RESP 18; TEMP 36.2; O2SAT 94
--- NOTE | 2022-12-16 09:04 | EXP.ANES.CKL ---
[facility] Disclaimer: The information contained in this section may have been updated after the patient was seen, as this information can be updated by other users. 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 current occupational exposures/hazards: No caffeine: Yes [facility] Anesthesia Checklist Patient Identification Patient Identification: Verbal (Name & ) Structural Data Admitted From: Home Planned Operative Procedure/s: colonoscopy Consent for Planned Operative Procedure(s) Verified: Yes Additional verifications Anesthesia Reactions: No Hx Blood Transfusions: No Blood Transfusion Reaction: No Airway Assessment Mallampati Score:: Class II C-Spine Mobility Assessed: Yes TMJ Mobility Assessed: Yes Dentition: Good Dentition Neurological Assessment Level of Consciousness: Awake, Alert and Appropriate Anesthesia Plan Anesthesia Risk discussed: Yes Anesthesia Plan: Verified ASA Class: II Anesthesia Type: MAC
[2022-12-16 09:23] VITALS: O2SAT 96
[2022-12-16 09:46] VITALS: BP 103/62; PULSE 100; RESP 16; TEMP 36.5; O2SAT 93
--- NOTE | 2022-12-16 09:46 | HMH.SCOPE ---
Procedure: Date: 12/16/22 Patient Date of :: 1950 Procedure Performed:: Colonoscopy with polypectomy Indications:: History of colon polyps Colonoscopy in October 2020 was significant for moderate bowel preparation, severe tortuosity, severe spasticity, minimal hemorrhoid cushions, a few scattered sigmoid diverticuli, and adenomatous polyps of the cecum/splenic flexure. Performing Provider:: Dell Lebron MD Referring Provider:: . Sedation:: Monitored anesthesia care Procedure:: After informed consent was obtained the patient was taken to the endoscopy suite. Sedation ensued after the patient was transferred to the left lateral decubitus position. Pulse, blood pressure, and oxygen saturation were monitored throughout the procedure. Digital rectal exam revealed no significant abnormality. The colonoscope was placed in position. The entire colon was evaluated. The colonoscope was carefully removed and the patient was transferred to recovery in stable condition. Please see findings and specimens below for detail. Findings:: Bowel preparation moderate to poor Profound spasticity/lack of relaxation Significant tortuosity Moderate hemorrhoidal cushions with focal early thrombosis Unchanged mild sigmoid diverticulosis Transverse colon polyp Specimens:: Transverse colon polyp (cold biopsy forceps) Recommendations:: Timing of repeat colonoscopy is pending pathology but likely be around 2-3 years secondary to limited bowel preparation, profound spasticity/lack of relaxation, significant tortuosity, and history of polyps. Consider barium enema secondary to spasticity/tortuosity Complications:: No immediate Estimated blood obtained (mL): 1 Colonoscopy Component Colonoscopy Component Was a colonoscopy performed during today's procedure?: Yes Recommended follow up colonoscopy of at least 10 years?: No If no, follow up colonoscopy recommended in ___ years?: 2-3 years Reason for not recommending >/= 10 yr follow-up interval?: (See above)
[2022-12-16 09:56] VITALS: BP 106/67; PULSE 89; RESP 17; O2SAT 99
[2022-12-16 10:06] VITALS: BP 109/54; PULSE 95; RESP 17; O2SAT 99
[2022-12-16 10:16] VITALS: BP 117/70; PULSE 85; RESP 16; O2SAT 99
== END 2022-12-16 10:20 | disposition home or self-care (01) ==
PROVIDERS: PCP Internal Medicine Adolescent Medicine; Visit Provider Surgery
PROC: 0DJD8ZZ Inspection of Lower Intestinal Tract, Via Natural or Artificial Opening Endoscopic (ICD-10-PCS; CPT 45380; principal; 2022-12-16 09:30)
DX: Z12.11 Encounter for screening for malignant neoplasm of colon (principal); Z86.010 Personal history of colon polyps; K56.2 Volvulus; K57.30 Diverticulosis of large intestine without perforation or abscess without bleeding; D12.3 Benign neoplasm of transverse colon
CPT/HCPCS: 45380; J2704

== ENCOUNTER → 2022-12-31 09:28 | Outpatient (CLI) | payer BC, OTHER, SELFPAY ==
[2022-12-31 10:47] LABS: Basophils % 0.4 % (0.1-2.0); Eosinophils # 0.2 K/mm3 (0.0-0.4); Eosinophils % 2.6 % (0.1-12.0); Hematocrit 42.6 % (42.0-52.0); Hemoglobin 14.3 g/dL (14.1-18.0); Lymphocytes # 1.9 K/mm3 (0.7-4.5); Lymphocytes % 21.7 % (10-50); Mean Corpuscular HGB Conc 33.5 g/dL (31.8-35.4); Mean Corpuscular Hemoglobin 31.7 pg (27.0-31.2); Mean Corpuscular Volume 94.8 fl (80-94); Mean Platelet Volume 8.8 fl (7.4-10.4); Monocytes # 0.7 K/mm3 (0.1-1.0); Monocytes % 7.4 % (1.7-9.3); Neutrophils % 67.9 % (37.0-80.0); Platelet Count 180 K/mm3 (142-424); White Blood Count 8.9 K/mm3 (4.8-10.8)
[2022-12-31 11:07] LABS: Alanine Aminotransferase 21 U/L (12-78); Albumin Level 4.1 g/dl (3.5-5.0); Albumin/Globulin Ratio 1.5 (1.1-1.8); Alkaline Phosphatase 72 U/L (38-126); Amylase 47 U/L (30-110); Anion Gap 12.6 mEq/L (5-15); Aspartate Amino Transferase 23 U/L (17-59); Bilirubin,Total 0.4 mg/dl (0.2-1.3); Blood Urea Nitrogen 26 mg/dl (9-20); Calcium 9.2 mg/dl (8.4-10.2); Carbon Dioxide 28 mmol/L (22.0-30.0); Chloride 106 mmol/L (98-107); Chol/HDL Ratio 3.5 (1-3.5); Cholesterol 140 mg/dl (140-200); Estimated Glomerular Filt Rate 66 ml/min (>60); GFR (African American) 80 ML/MIN (>60); Globulin 2.8 g/dL (1.3-3.2); Glucose 101 mg/dl (74-100); HDL Cholesterol 40 mg/dl (40-60); Lipase 11 U/L (23-300); Potassium 4.6 mmoL/L (3.5-5.1); Sodium 142 mmol/L (136-145); Total Protein,Serum 6.9 g/dl (6.3-8.2); Triglycerides 76 mg/dl (30-150); VLDL Cholesterol 15 mg/dL (0-40)
[2022-12-31 11:38] LABS: Thyroid Stimulating Hormone 1.58 uIU/mL (0.465-4.68)
== END ==
LOC: LAB 09:29
PROVIDERS: PCP Internal Medicine Adolescent Medicine; Visit Provider Internal Medicine Adolescent Medicine
DX: I10 Essential (primary) hypertension (principal); E03.9 Hypothyroidism, unspecified; K86.1 Other chronic pancreatitis; E78.49 Other hyperlipidemia
CPT/HCPCS: 36415; 80053; 80061; 82150; 83690; 84443; 85025

== ENCOUNTER 2023-02-14 12:03 | Emergency (ER) | payer BC, SELFPAY ==
[2023-02-14 12:03] VITALS: BP 160/87; PULSE 91; RESP 16; TEMP 36.3; O2SAT 97; BMI 31.3
[2023-02-14 12:31] VITALS: BP 158/82; PULSE 73; RESP 18; O2SAT 100
--- NOTE | 2023-02-14 12:47 | CT_ITS ---
PROCEDURE INFORMATION: Exam: CT Abdomen And Pelvis With Contrast Exam date and time: 02/14/2023 1:20 PM Age: 73 years old Clinical indication: Abdominal pain; Other: Rlq pain; Additional info: Rlq pain, pain in right side of lower back, HX of pancreatic stones TECHNIQUE: Imaging protocol: Computed tomography of the abdomen and pelvis with contrast. Radiation optimization: All CT scans at this facility use at least one of these dose optimization techniques: automated exposure control; mA and/or kV adjustment per patient size (includes targeted exams where dose is matched to clinical indication); or iterative reconstruction. Contrast material: ISOVUE; Contrast volume: 75 ml; Contrast route: IV; REPORTING DATA: Count of CT and Cardiac NM exams in prior 12 months: This patient has received 0 known CTs and 0 known cardiac nuclear medicine studies in the 12 months prior to the current study. COMPARISON: MR ABDOMEN WO/W CON 02/28/2020 8:44 AM FINDINGS: Liver: Normal. No mass. Gallbladder and bile ducts: Previous cholecystectomy. Pancreas: Normal. No ductal dilation. Spleen: Normal. No splenomegaly. Adrenal glands: Normal. No mass. Kidneys and ureters: Moderate right obstructive uropathy with calculus at the ureteropelvic junction measuring 5 mm. Punctate nonobstructing right renal calculus in the midpole. No left hydronephrosis. Stomach and bowel: Unremarkable. No obstruction. No mucosal thickening. Appendix: No evidence of appendicitis. Intraperitoneal space: Unremarkable. No free air. No significant fluid collection. Vasculature: Unremarkable. No abdominal aortic aneurysm. Lymph nodes: Unremarkable. No enlarged lymph nodes. Urinary bladder: Unremarkable as visualized. Reproductive: Unremarkable as visualized. Bones/joints: Unremarkable. No acute fracture. Soft tissues: Unremarkable. IMPRESSION: 1. Moderate right obstructive uropathy with calculus at the ureteropelvic junction measuring 5 mm. 2. Punctate nonobstructing right renal calculus in the midpole.
--- NOTE | 2023-02-14 12:54 | HMH.EDGENADL ---
Discharge Plan Disposition Patient Disposition: Home, Self-Care Condition: Fair Prescriptions Prescriptions: New oxycodone 5 mg tablet 5 mg PO Q6H PRN (Reason: pain (scale score 7-10)) Qty: 10 0RF No Action cyclobenzaprine 5 mg tablet 5 mg PO TID PRN celecoxib 200 mg capsule 200 mg PO BID PRN aspirin [Adult Low Dose Aspirin] 81 mg tablet,delayed release (DR/EC) 81 mg PO DAILY levothyroxine 75 mcg tablet 75 mcg PO DAILY Patient Comments: TAKE ONE TABLET BY MOUTH EVERY DAY fluticasone propion-salmeterol [Advair Diskus] 250-50 mcg/dose blister with device 1 inh inhalation NEEDED PRN (Reason: soa) fluticasone propionate 50 mcg/actuation spray,suspension 1 mcg intranasal NEEDED PRN (Reason: allergies) tamsulosin 0.4 mg capsule 1 ea PO DAILY Patient Comments: TAKE ONE CAPSULE BY MOUTH EVERY DAY AT BEDTIME Creon 36,000-114,000- 180,000 unit capsule,delayed release(DR/EC) 1 ea PO DAILY Patient Comments: take 2 TO 3 capsules BY MOUTH THREE TIMES DAILY pravastatin [Pravachol] 80 mg tablet 80 mg PO QHS Qty: 90 0RF lisinopril 10 mg tablet 5 mg PO DAILY Patient Comments: TAKE 1 TABLET BY MOUTH EVERY DAY ibuprofen 800 MG tablet 800 mg PO Q8HP PRN (Reason: Moderate Pain) 30 Days Qty: 90 5RF Referrals Follow up/Referrals: Willem Britt MD [Primary Care Provider] - See instructions Activity Restrictions/Add. Instructions Additional Instructions/Restrictions: You were evaluated in the emergency department today for concerns of right flank pain. You have a kidney stone. Take your tamsulosin twice daily and drink plenty of water. Also strain your urine to catch the stone when you pass it. Save this and bring it to your primary care physician when it passes. Take the oxycodone if needed for severe pain that is not controlled by Tylenol. Make an appointment with your primary care physician for Thursday for reevaluation. Please immediately return to the emergency department with any new, worsening, or otherwise concerning symptoms. Clinical Impressions Clinical Impression: Kidney stone on right side Instructions Patient Instructions: DI for Acute Abdominal Pain Discharge ED Provider: Nidhi Fonseca Adult [facility] General Chief complaint: Abdominal Pain Stated complaint: abd pain Time Seen by Provider: 02/14/23 12:46 Mode of Arrival: Ambulatory Source of Information: Patient Limitations: No Limitations Description of Symptoms (Recalled from ER Triage Doc. by RN): Patient sent from Dr. Britt's office. Complaint of right lower abdomen pain that started this morning. States he has had some nausea and vomiting as well. History of Present Illness HPI narrative: This 73-year-old male with a history of hypertension, hypothyroid presents to the emergency department with concerns of right lower quadrant abdominal pain. Patient was evaluated at Dr. Santiago's office for this pain that started around 8:00 this morning. Patient states he has had nausea and one episode of vomiting as well. He states he is never had pain like this in the past. He does state he has a history of pancreatitis but the pain was different. Patient does not have history of kidney stones. He denies any dysuria. He does have some radiation into the groin as well as to the back. He denies fevers or chills. No history of abdominal surgeries. Related Data Home Medications Medication Instructions Recorded Confirmed aspirin 81 mg tablet,delayed 81 mg PO DAILY Heart disease 06/22/17 12/31/22 release (Adult Low Dose Aspirin) levothyroxine 75 mcg tablet 75 mcg PO DAILY thyroid function 03/14/20 12/31/22 fluticasone 250 mcg-salmeterol 50 1 inh inhalation NEEDED PRN soa 01/08/22 12/31/22 mcg/dose blistr powdr for inhalation (Advair Diskus) fluticasone propionate 50 1 mcg intranasal NEEDED PRN 01/08/22 12/31/22 mcg/actuation nasal allergies spray,
[2023-02-14 13:00] VITALS: BP 152/99; PULSE 68; RESP 18; O2SAT 100
[2023-02-14 13:00] LABS: Basophils % 0.3 % (0.1-2.0); Eosinophils # 0.2 K/mm3 (0.0-0.4); Eosinophils % 1.7 % (0.1-12.0); Hematocrit 40.2 % (42.0-52.0); Lymphocytes # 1.7 K/mm3 (0.7-4.5); Lymphocytes % 15.1 % (10-50); Mean Corpuscular HGB Conc 34.8 g/dL (31.8-35.4); Mean Corpuscular Hemoglobin 32.6 pg (27.0-31.2); Mean Corpuscular Volume 93.7 fl (80-94); Mean Platelet Volume 8.9 fl (7.4-10.4); Monocytes # 0.8 K/mm3 (0.1-1.0); Monocytes % 7.6 % (1.7-9.3); Neutrophils # 8.3 K/mm3 (1.8-7.8); Neutrophils % 75.3 % (37.0-80.0); Platelet Count 186 K/mm3 (142-424); Red Blood Count 4.29 M/mm3 (4.60-6.20); Red Cell Distribution Width 12.9 % (11.5-17.5)
[2023-02-14 13:01] LABS: Alanine Aminotransferase 26 U/L (12-78); Albumin Level 4.4 g/dl (3.5-5.0); Albumin/Globulin Ratio 1.3 (1.1-1.8); Alkaline Phosphatase 79 U/L (38-126); Anion Gap 11.7 mEq/L (5-15); Aspartate Amino Transferase 35 U/L (17-59); Bilirubin,Total 0.4 mg/dl (0.2-1.3); Blood Urea Nitrogen 32 mg/dl (9-20); Calcium 9.2 mg/dl (8.4-10.2); Carbon Dioxide 27 mmol/L (22.0-30.0); Chloride 103 mmol/L (98-107); Creatinine Clearance Estimated 71 mL/min (50-200); Estimated Glomerular Filt Rate 60 ml/min (>60); GFR (African American) 72 ML/MIN (>60); Globulin 3.5 g/dL (1.3-3.2); Glucose 113 mg/dl (74-100); Potassium 4.7 mmoL/L (3.5-5.1); Sodium 137 mmol/L (136-145); Total Protein,Serum 7.9 g/dl (6.3-8.2)
[2023-02-14 13:03] LABS: Lipase < 10 U/L (23-300)
--- NOTE | 2023-02-14 13:11 | PC.NURSE ---
provided pt with a warm blanket.
--- NOTE | 2023-02-14 13:12 | PC.NURSE ---
pt transported to radiology.
[2023-02-14 13:30] VITALS: BP 146/78; PULSE 88; RESP 16; O2SAT 98
[2023-02-14 13:32] LABS: Lactic Acid 1.3 mmol/L (0.7-2.1)
[2023-02-14 13:46] LABS: Microscopic, Urine URINE MICROSCOPIC (MICROSCOPIC)
[2023-02-14 14:08] LABS: Appearance,Urine CLEAR (Clear); Bilirubin,Urine Negative (Negative); Blood, Urine 3+ (Negative); Color,Urine YELLOW (Yellow); Glucose,Urine (UA) Negative (Negative); Ketones,Urine Negative (Negative); Leukocyte Esterase,Urine Negative (Negative); Nitrate,Urine Negative (Negative); Protein,Urine Negative (Negative); Specific Gravity, Urine 1.025 (1.005-1.030); Urobilinogen,Urine 0.2 EU/dl (0.2)
[2023-02-14 14:32] LABS: Bacteria,Urine Trace /lpf; Squamous Epithelial Cell,Urine Occasional #/hpf (0-5); WBC,Urine Occasional #/hpf (0-3)
--- NOTE | 2023-02-14 14:53 | PC.NURSE ---
Dr. Fonseca speaking with Dr. Trinh.
[2023-02-14 15:42] VITALS: BP 137/87; PULSE 97; RESP 16; TEMP 36.6; O2SAT 98
== END 2023-02-14 15:42 | disposition home or self-care (01) ==
PROVIDERS: Emergency Provider Emergency Medicine; PCP Internal Medicine Adolescent Medicine
DX: N20.1 Calculus of ureter (principal); R10.31 Right lower quadrant pain; R11.2 Nausea with vomiting, unspecified; I10 Essential (primary) hypertension; E03.9 Hypothyroidism, unspecified; E78.5 Hyperlipidemia, unspecified; Z86.73 Personal history of transient ischemic attack (TIA), and cerebral infarction without residual deficits
CPT/HCPCS: 74177; 80053; 81001; 83605; 83690; 85025; 96361; 96374; 96375; 99285; J2405; Q9967

== ENCOUNTER → 2023-03-13 08:41 | Outpatient (CLI) | payer BC, SELFPAY ==
--- NOTE | 2023-03-13 08:41 | FL_ITS ---
FINAL REPORT CLINICAL HISTORY: 6.22 fluoro time DAP 9472.87 hx of polyps FINDINGS: BARIUM ENEMA HISTORY: Incomplete colonoscopy. PROCEDURE: Single-contrast barium was introduced by gravity drip. Spot and overhead films were obtained. Number of images: 19 Fluoro time: 6 minutes 20 seconds DAP: 9472.87 [id number]. FINDINGS: [employer] film is unremarkable. Retained stool limits mucosal detail. In addition, spasm of the colon during the exam limits the study. The colon is markedly redundant. No constricting or obstructing lesions are identified to the level of the cecum. Scattered diverticuli are noted. IMPRESSION: Redundant colon with spasm. No constricting or obstructing lesions to the level the cecum. Scattered diverticuli. Films reviewed , interpreted and dictated by Dr. Naida Perales. Transcribed by Bowen Deluna PA-C. Reviewed, Interpreted and Dictated by Naida Perales MD Transcribed by LAURITA Pang Authenticated and [facility]
== END ==
PROVIDERS: PCP Internal Medicine Adolescent Medicine; Visit Provider Surgery
DX: K59.00 Constipation, unspecified (principal)
CPT/HCPCS: 74270

== ENCOUNTER 2023-12-12 10:53 | Outpatient (CLI) | payer MEDICARE, SELFPAY ==
[2023-12-12 11:20] LABS: Basophils # 0.1 K/mm3 (0-0.2); Basophils % 0.6 % (0.1-2.0); Eosinophils # 0.2 K/mm3 (0.0-0.4); Eosinophils % 2.1 % (0.1-12.0); Hematocrit 43.5 % (42.0-52.0); Lymphocytes # 1.8 K/mm3 (0.7-4.5); Lymphocytes % 20.8 % (10-50); Mean Corpuscular HGB Conc 32.3 g/dL (31.8-35.4); Mean Corpuscular Hemoglobin 32.1 pg (27.0-31.2); Mean Corpuscular Volume 99.3 fl (80-94); Mean Platelet Volume 9.3 fl (7.4-10.4); Monocytes # 0.6 K/mm3 (0.1-1.0); Monocytes % 6.5 % (1.7-9.3); Platelet Count 172 K/mm3 (142-424); Red Blood Count 4.38 M/mm3 (4.60-6.20); Red Cell Distribution Width 13.3 % (11.5-17.5); White Blood Count 8.6 K/mm3 (4.8-10.8)
[2023-12-12 12:33] LABS: Albumin Level 4.2 g/dl (3.5-5.0); Chloride 107 mmol/L (98-107); Sodium 142 mmol/L (136-145)
[2023-12-12 12:34] LABS: Potassium 4.7 mmoL/L (3.5-5.1)
[2023-12-12 12:36] LABS: Alanine Aminotransferase 19 U/L (12-78); Anion Gap 10.7 mEq/L (5-15); Aspartate Amino Transferase 24 U/L (17-59); Blood Urea Nitrogen 21 mg/dl (9-20); Carbon Dioxide 29 mmol/L (22.0-30.0); Estimated Glomerular Filt Rate 83 ml/min (>60); GFR (African American) 100 ML/MIN (>60)
[2023-12-12 12:37] LABS: Albumin/Globulin Ratio 1.6 (1.1-1.8); Alkaline Phosphatase 75 U/L (38-126); Bilirubin,Total 0.6 mg/dl (0.2-1.3); Calcium 9.3 mg/dl (8.4-10.2); Globulin 2.7 g/dL (1.3-3.2); Glucose 96 mg/dl (74-100); Total Protein,Serum 6.9 g/dl (6.3-8.2)
[2023-12-12 12:53] LABS: Troponin I < 0.01 ng/ml (0.00-0.034)
[2023-12-12 13:07] LABS: Thyroid Stimulating Hormone 2.02 uIU/mL (0.465-4.68)
== END 2023-12-12 23:59 | disposition home or self-care (01) ==
LOC: LAB 10:55
PROVIDERS: PCP Internal Medicine Adolescent Medicine; Visit Provider Nurse Practitioner Family
DX: R53.83 Other fatigue (principal)
CPT/HCPCS: 36415; 80053; 84443; 84484; 85025

== ENCOUNTER 2023-12-23 16:26 | Outpatient (CLI) | payer MEDICARE, SELFPAY ==
--- NOTE | 2023-12-23 | MR_ITS ---
PROCEDURE INFORMATION: Exam: MR Head Without and With Contrast Exam date and time: 12/23/2023 4:50 PM Age: 73 years old Clinical indication: Other: Vertigo; Patient HX: Headaches TECHNIQUE: Imaging protocol: Magnetic resonance imaging of the head without and with contrast. Contrast material: PROHANCE; Contrast volume: 19 ml; Contrast route: IV; COMPARISON: MR HEAD/BRAIN WO/W CON 03/05/2021 11:26 AM FINDINGS: Brain: There is no mass effect, midline shift, hemorrhage, extra-axial fluid collection or acute infarct. Scant hemispheric white matter signal hyperintensities most likely represent mild microvascular ischemic change. Cerebral ventricles: Normal. No ventriculomegaly. Bones: Unremarkable. Paranasal sinuses: Normal as visualized. No acute sinusitis. Mastoid air cells: Normal as visualized. No mastoid effusion. Orbital cavities: The patient is post right cataract surgery. Soft tissues: Unremarkable. IMPRESSION: No acute intracranial process.
[2023-12-23] MEDS: GADOTERIDOL INJ 20ML SYRINGE 19 ML IV (17:48)
[2023-12-23] MEDS: SODIUM CHLORIDE 0.9% 10ML SYR (RAD ONLY) 10 ML IV (17:48)
== END 2023-12-23 23:59 | disposition home or self-care (01) ==
LOC: RAD 16:26
PROVIDERS: PCP Nurse Practitioner Family; Visit Provider Nurse Practitioner Family
DX: R42 Dizziness and giddiness (principal); R51.9 Headache, unspecified; R26.81 Unsteadiness on feet
CPT/HCPCS: 70553; A9576

== ENCOUNTER 2024-06-29 14:44 | Outpatient (CLI) | payer MEDICARE, SELFPAY ==
--- NOTE | 2024-06-29 14:55 | XR_ITS ---
FINAL REPORT CLINICAL HISTORY: cERVICALGIA COMPARISON: None FINDINGS: Five views of the cervical spine were obtained. There is no fracture present. There is no malalignment. There is moderate diffuse degenerative disc disease. Osteopenia is noted. Bony neural foraminal narrowing is noted bilaterally at C4-5 and C5-6. IMPRESSION: Moderate degenerative changes. Reviewed, Interpreted and Dictated by Aury Velasco MD Transcribed by Farida Haley Authenticated and [facility]
== END 2024-06-29 23:59 | disposition home or self-care (01) ==
LOC: RAD 14:46
PROVIDERS: PCP Internal Medicine Adolescent Medicine; Visit Provider Internal Medicine Adolescent Medicine
DX: M54.2 Cervicalgia (principal)
CPT/HCPCS: 72050

== ENCOUNTER 2025-02-22 09:41 | Outpatient (CLI) | payer MEDICARE, SELFPAY ==
--- OUTSIDE RECORDS SUMMARY | 2024-08-06 17:30 | XMS_ITS ---
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 Name Role Phone Willem Britt Primary Care Provider Willem Britt Unavailable Unavailable Migration, Provider Unavailable Unavailable Allergies Allergen (clinical drug ingredient) Drug/Non Drug Allergy documented on EMR Reaction Allergy Type Onset Date Status nebivolol Bystolic breathing trouble Drug Allergy Active metoprolol Metoprolol breathing trouble Drug Allergy Active morphine Morphine Unknown Drug Allergy Active Penicillin Unknown Drug Allergy Active REASON FOR VISIT [facility] Encounter Medications Medication SIG (Take, Route, Frequency, Duration) Notes Start Date End Date Status Pravastatin Sodium 80 MG 1 tab(s) orally once a day; Duration: 90 days Active Cyclobenzaprine HCl 5 MG 1 tab(s) orally 3 times a day; Duration: 30 days Active Tamsulosin HCl 0.4 MG 1 cap(s) orally once a day; Duration: 90 days Active Levothyroxine Sodium 75 MCG 1 tab(s) orally once a day; Duration: 90 days Active Creon 36,000 UNITS-114,000 UNITS-180,000 UNITS 2-4 CAPS ORALLY 3 TIMES A DAY WITH MEALS AND WITH SNACK TIME- MAX OF 10 A DAY *Please review and pick correct strength-formulati on from [facility] options. If intended option is not shown, discontinue and re-order from Quick Search* Active Advair Diskus 250 MCG-50 MCG 1 INH INHALED 2 TIMES A DAY; Duration: 90 DAYS prn *Please review and pick correct strength-formulati on from [employer] options. If intended option is not shown, discontinue and re-order from Quick Search* Active Albuterol Sulfate HFA 108 (90 Base) MCG/ACT 2 puff(s) inhaled every 6 hours; Duration: 30 days 09/10/2023 Active Fluticasone Propionate 50 MCG/ACT 2 sprays in each nostril once a day; Duration: 30 day(s) prn Active Vardenafil HCl 20 MG 1 tab(s) orally once a day; Duration: 30 days prn Active Celecoxib 200 MG 1 cap(s) orally 2 times a day; Duration: 90 days prn Active Aspirin 81 MG 1 tab(s) chewed once a day; Duration: 90 days Active Lisinopril 5 MG 1 tab(s) orally once a day; Duration: 90 days Active Doxycycline Monohydrate 100 MG 1 cap(s) orally 2 times a day; Duration: 7 days 07/01/2024 Active predniSONE 20 MG 1 tab(s) orally twice a day; Duration: 5 days 07/01/2024 Active Encounters Encounter Location Date Provider Diagnosis [facility] [address] [place], [place] [address] 08/06/2024 Provider Migration Essential hypertension I10 ; COPD exacerbation J44.1 and Familial hyperlipidemia E78.49 Assessments Encounter Date Diagnosis (ICD Code) Assessment Notes Treatment Notes Treatment Clinical Notes Section Notes 08/06/2024 Essential hypertension (ICD-10 - I10) 08/06/2024 COPD exacerbation (ICD-10 - J44.1) 08/06/2024 Familial hyperlipidemia (ICD-10 - E78.49) Plan Of Treatment Medication Medication Name Sig Start Date Stop Date Notes Pravastatin Sodium 80 MG 1 tab(s) orally once a day; Duration: 90 days Lisinopril 5 MG 1 tab(s) orally once a day; Duration: 90 days Doxycycline Monohydrate 100 MG 1 cap(s) orally 2 times a day; Duration: 7 days 07/01/2024 predniSONE 20 MG 1 tab(s) orally twic e a day; Duration: 5 days 07/01/2024 Progress Notes * Julio César STUART CDOB:1949 (75 yo M)Acc No.[id number]:08/06/2024 Patient: Julio César FINNEY Provider: Jax Daniel :1950 A ge:74 Y S ex:Male Date:08/06/2024 Address:[address] [place], [place] [address] [address], [place], [id number] Pcp:Willem Britt Subjective: * Chief Complaints: * 1 . [facility]. * Medical History: * Medications: T aking Aspirin 81 MG Tablet Chewable 1 tab(s) chewed once a day , Taking Advair Diskus 250 MCG-50 MCG POWDER 1 INH INHALED 2 TIMES A DAY , Notes to Pharmacist: prn *Please review and pick correct strength-formulation from [employer] options. If intended option is not shown, discontinue and re-order from Quick Search*, Taking Albuterol Sulfate HFA 108 (90 Base) MCG/ACT Aerosol Solution 2 puff(s) inhaled every 6 hours , Taking Fluticasone Propionate 50 MCG/ACT Suspension 2 sprays in each nostril once a day , Notes to Pharmacist: prn, Taking Vardenafil HCl 20 MG Tablet 1 tab(s) orally once a day , Notes to Pharmacist: prn, Taking Celecoxib 200 MG Capsule 1 cap(s) orally 2 times a day , Notes to Pharmacist: prn, Taking Cyclobenzaprine HCl 5 MG Tablet 1 tab(s) orally 3 times a day , Taking Tamsulosin HCl 0.4 MG Capsule 1 cap(s) orally once a day , Taking Levothyroxine Sodium 75 MCG Tablet 1 tab(s) orally once a day , Taking Creon 36,000 UNITS-114,000 UNITS-180,000 UNITS DELAYED RELEASE CAPSULE 2-4 CAPS ORALLY 3 TIMES A DAY WITH MEALS AND WITH SNACK TIME- MAX OF 10 A DAY , Notes to Pharmacist: *Please review and pick correct strength-formulation from [employer] options. If intended option is not shown, discontinue and re-order from Quick Search* * Allergies: M orphine, Penicillin, Bystolic: breathing trouble, Metoprolol: breathing trouble. Objective: * Vitals: Assessment: * Assessment: 1. C OPD exacerbation - J44.1 (Primary) 2 . F amilial hyperlipidemia - E78.49 3 . E ssential hypertension - I10 Plan: * Treatment: 2. F amilial hyperlipidemia Start Pravastatin Sodium Tablet, 80 MG, 1 tab(s), orally, once a day, 90 days, 90, Refills 1. ? 3. E ssential hypertension Start Lisinopril Tablet, 5 MG, 1 tab(s), orally, once a day, 90 days, 90, Refills 1. * * Electronic signature of Prov ider Migration on 02/22/2025 at 09:44 AM EDT Sign off status: Pending * Provider: Jax franco Migration Date: 0 08/06/2024 Generated for Goran morgan/Yajaira/Daynaitting on: 1 09:44 AM EDT
--- OUTSIDE RECORDS SUMMARY | 2025-02-09 04:30 | XMS_ITS ---
Author Organization [facility] PE D MIMI Address [address] [facility] [address] [facility] [address] [place] [address] Care Team Providers Care Municipal Bond Trader Name Role Phone Willem Britt Primary Care Provider Willem Britt Unavailable Unavailable Jenna Hughes Unavailable [phone] Allergies Allergen (clinical drug ingredient) Drug/Non Drug Allergy documented on EMR Reaction Allergy Type Onset Date Status nebivolol Bystolic breathing trouble Drug Allergy Active metoprolol Metoprolol breathing trouble Drug Allergy Active morphine Morphine Unknown Drug Allergy Active Penicillin Unknown Drug Allergy Active Reason For Referral Reason MRI LS spine Diagnosis 1 Lumbago with sciatic a, right side (M54.41) Referral Organization [facility] Referring Provider First Name Jenna Referring Provider Last Name Saul Referring Provider Speciality Family Pra utice Referred Organization [facility] Referred Address [address], [place],[address], Referred Provider Specialty Diagnostic R adiology General Notes Karina Brown 2024 09:32:06 AM >sent to [facility] to schedule Referral Priority Routine REASON FOR VISIT Back pain Medications Medication SIG (Take, Route, Frequency, Duration) Notes Start Date End Date Status Celecoxib 200 MG 1 cap(s) orally 2 times a day; Duration: 90 days prn Active Levothyroxine Sodium 75 MCG 1 tab(s) orally once a day; Duration: 90 days Active Tamsulosin HCl 0.4 MG Take 1 capsule by mouth once daily; Duration: 90 Active Meclizine HCl 25 MG 1 tablet as needed Orally 3 times a day; Duration: 7 days As needed 11/14/2024 Active Vardenafil HCl 20 MG 1 tab(s) orally once a day; Duration: 30 days prn Active predniSONE 20 MG take 3 tablets for 2 days, 2 tablets for 2 days and one tablet x 1 day orally once a day; Duration: 5 day(s) 02/09/2025 Active Aspirin 81 MG 1 tab(s) chewed once a day; Duration: 90 days Active Fluticasone Propionate 50 MCG/ACT 2 sprays in each nostril once a day; Duration: 30 day(s) prn Active Albuterol Sulfate HFA 108 (90 Base) MCG/ACT 2 puff(s) inhaled every 6 hours; Duration: 30 days 09/10/2023 Active Advair Diskus 250 MCG-50 MCG 1 INH INHALED 2 TIMES A DAY; Duration: 90 DAYS prn *Please review and pick correct strength-formulati on from [employer] options. If intended option is not shown, discontinue and re-order from Quick Search* Active Lisinopril 5 MG Take 1 tablet by mouth once daily; Duration: 90 Active Pravastatin Sodium 80 MG Take 1 tablet by mouth once daily; Duration: 90 Active Creon [id number] UNIT TAKE 2 TO 4 CAPSULES BY MOUTH THREE TIMES DAILY WITH MEALS AND WITH SNACK TIME. MAX OF 10 CAPSULES A DAY; Duration: 30 Active Cyclobenzaprine HCl 5 MG TAKE 1 TABLET BY MOUTH THREE TIMES DAILY NEEDED FOR 30 DAYS; Duration: 30 Active Problems Problem Type SNOMED Code ICD Code Onset Dates Problem Status W/U Status Risk Notes Problem Sciatica (72764077) Lumbago with sciatica, right side (M54.41) Active confirmed Problem Sciatica (71172400) Lumbago with sciatica, left side (M54.42) Active confirmed Vital Signs Temperature 97.7 degrees Fahrenheit 02/10/20 25 Blood pressure systolic 120 mm Hg 02/10/20 25 Blood pressure diastolic 76 mm Hg 025 Heart Rate 76 /min 02/09/2025 Height 5'6.5 in 02/09/2025 Weight 186 lbs 02/09/2025 BMI 29.57 kg/m2 02/09/2025 Encounters Encounter Location Date Provider Diagnosis [facility] [address] [place] [address] 02/09/2025 Jenna Hughes Lumbago with sciatica, right side M54.41 ; Lumbago with sciatica, left side M54.42 and Other chronic pain G89.29 Assessments Encounter Date Diagnosis (ICD Code) Assessment Notes Treatment Notes Treatment Clinical Notes Section Notes 02/09/2025 Lumbago with sciatica, right side (ICD-10 - M54.41) Long history of DDD and back pain with no radicular symptoms, Needs MRI to re-evaluate Rest, warm compresses, stretches and steroids as above 02/09/2025 Lumbago with sciatica, left side (ICD-10 - M54.42) 02/09/2025 Other chronic pain (ICD-10 - G89.29) Plan Of Treatment Medication Medication Name Sig Start Date Stop Date Notes predniSONE 20 MG take 3 tablets for 2 days, 2 tablets for 2 days and one tablet x 1 day orally once a day; Duration: 5 day(s) 02/09/2025 Treatment Notes Assessment Notes Lumbago with sciatica, right side Long history of DDD and back pain with no radicular symptoms, Needs MRI to re-evaluate Rest, warm compresses, stretches and steroids as above Pending Test Test Name Order Date MRI : Lumbosacral Spine 02/09/2025 Referrals Referral Date Details 02/09/2025 02/09/2025, MRI LS amna estarda, [address] [facility], [place], [address], Next Appt Details Follow Up: prn, Reason: Progress Notes * Julio César BERGMAN CDOB:1949 (74 yo M)Acc No.[id number]:02/09/2025 Progress Notes Patient: Julio César FINNEY Provider: Xi Hughes APRN :1950 A ge:74 Y S ex:Male Date:02/09/2025 Address:[address] [place] [address] [address], [facility], [id number] Pcp:Willem Britt Subjective: * Chief Complaints: * 1 . Back pain. * HPI: Nick duron back: 74 year old male presents with c/o low back pain. c/o radiation of pain. c/o previous therapy. c/o previous imaging. Denies : fall. D enies : direct trauma. D enies : tingling/ numbness. D enies : previous injury. D enies : previous surgery. D enies : New bowel or bladder symptoms. 74 y/o male with long history of back pain, known LS DDD presents with worsening pain. Reports pain is constant, low back, at times radiates down lateral aspects of both legs to ankle. Pain increases with certain movement such as laying flat, and prolonged ambulation or standing. Pain improves with bending forward and doing crunches. Denies injury or trauma. MRI- DDD years ago, can not find report. Underwent injections by Dr. Malloy in 2021 with some improvement at that time. * ROS: G ASTROENTEROLOGY: Reviewed, No Symptoms Reported: Y es. N EUROLOGY: no T ingling numbness. U ROLOGY: no U rinary incontinence. * Medical History: A sthma with COPD, Migraines, GERD, COPD, Hyperlipidemia, Hypogonadism, HTN, Chest pain, Sleep apnea. * Surgical History: F oot surgery-achilles tendon repair rt foot 2001, surgery on rt eye-retina , cataract removal-rt eye , colonoscopy 10/2017, cholecystectomy , left hand fx repair , pancretic stone 2017. * Hospitalization/Major Diagno stic Procedure: P ancreatitis 1997. * Family History: F ather: , AAA, [place]. M other: , angina, CAD. P aternal Grand Father: . P aternal Grand Mother: . M aternal Grand Father: . M aternal Grand Mother: . P aternal aunt: . M aternal uncle: . M aternal aunt: . S iblings: alive, Breast cancer sister- . C hilen: alive. 1 brother(s) , 1 sister(s) . 1 son(s) , 1 daughter(s) - healthy. . * Social History: S moking: no A re you a:: nonsmoker. R ecreational drug use: no. Exercise: no. Home smoke detector use: yes. Caffeine: yes, frequency:1 cup per day. Living Will: No, but is health care surrogate. Alcohol: socially. Sexually active: yes. Travel outside [place]: no. 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 * Medications: T sharig Aspirin 81 MG Tablet Chewable 1 tab(s) chewed once a day , Taking Advair Diskus 250 MCG-50 MCG POWDER 1 INH INHALED 2 TIMES A DAY , Notes to Pharmacist: prn *Please review and pick correct strength-formulation from [employer] options. If intended option is not shown, [...] day , Notes to Pharmacist: prn, Taking Tamsulosin HCl 0.4 MG Capsule Take 1 capsule by mouth once daily , Taking Levothyroxine Sodium 75 MCG Tablet 1 tab(s) orally once a day , Taking Meclizine HCl 25 MG Tablet 1 tablet as needed Orally 3 times a day As needed, Taking Creon [id number] UNIT Capsule Delayed Release Particles TAKE 2 TO 4 CAPSULES BY MOUTH THREE TIMES DAILY WITH MEALS AND WITH SNACK TIME. MAX OF 10 CAPSULES A DAY , Taking Pravastatin Sodium 80 MG Tablet Take 1 tablet by mouth once daily , Taking Lisinopril 5 MG Tablet Take 1 tablet by mouth once daily , Taking Cyclobenzaprine HCl 5 MG Tablet TAKE 1 TABLET BY MOUTH THREE TIMES DAILY NEEDED FOR 30 DAYS , Medication List reviewed and reconciled with the patient * Allergies: M orphine, Penicillin, Bystolic: breathing trouble, Metoprolol: breathing trouble. Objective: * Vitals: N urse: be, Pain: 5, Temp: 97.7, RR: 16, HR: 76, BP: 120/76, Ht: 5'6.5 , Wt: 186, BMI:29.57. * Examination: G eneral Examination: General P leasant and Cooperative, NAD on RA,. Peripheral pulses: n ormal (2+) bilaterally. Back: n o lumbar paraspinal muscle tenderness, no SI joint tenderness, low midline lumbar spine tenderness, pain with SLR bilaterally at 20 deg. Extremities: 2 + patellar reflexes bilaterally. ? Assessment: * Assessment: 1. L umbago with sciatica, right side - M54.41 (Primary) 2 . L umbago with sciatica, left side - M54.42 3 . O ther chronic pain - G89.29 Plan: * Treatment: Notes: Long history of DDD and back pain with no radicular symptoms, Needs MRI to re-evaluate Rest, warm compresses, stretches and steroids as above? Referral To: ?Reason:MRI LS spine 2.?Lumbago with sciatica, left side?Imaging: MRI : Lumbosacral Spine* 3.?Other chronic pain?Imaging: MRI : Lumbosacral Spine* * Follow Up: p rn * * Sign off status: Completed true * Provider: Xi Hughes APRN Date: Generated for Goran morgan/Yajaira/Lorna on: 09:44 AM EDT History and Physical Notes * HPI (History of Present Illness) Category Sub-Category Detail Notes Category Not es Lower back direct trauma 74 y/o male wi th long history of back pain, known LS DDD presents with worsening pain. Reports pain is constant, low back, at times radiates down lateral aspects of both legs to ankle. Pain increases with certain movement such as laying flat, and prolonged ambulation or standing. Pain improves with bending forward and doing crunches. Denies injury or trauma. MRI- DDD years ago, can not find report. Underwent injections by Dr. Malloy in 2021 with some improvement at that time fall tingling/ numbness previous injury low back pain radiation of pain previous surgery previous therapy previous imaging New bowel or bladder symptoms Examination Category Sub-Category Detail Notes Category Not es General Examination Extremities: 2+ patellar reflexes bilaterally Peripheral pulses: normal (2+) bilatera lly Back: no lumbar paraspinal muscle tenderness, no SI joint tenderness, low midline lumbar spine tenderness, pain with SLR bilaterally at 20 deg General Pleasant and Coopera tive, NAD on RA, Consultation Request Notes Referral Date Referring Provider Referred Provider Not es 02/09/2025 Jenna Hughes , MRI LS spine
--- NOTE | 2025-02-22 09:44 | MR_ITS ---
FINAL REPORT TECHNIQUE: Multiplanar MR without contrast CLINICAL HISTORY: LUMBAGO W GAMALIEL SCIATICA/OTHER CHRINIC PAIN COMPARISON: 02/23/2017 FINDINGS: Sagittal images show normal vertebral height. Alignment is normal. 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 There are discogenic endplate signal changes at L4-5 and L5-S1. T12-L1: Minimal annular disc bulge. L1-2: Mild annular disc bulge and mild facet arthropathy. L2-3: Moderate annular disc bulge and facet arthropathy. Ligamentum flavum hypertrophy. Moderate to severe central canal stenosis, right greater than left which has progressed since prior. Severe right and moderate left neuroforaminal narrowing. L3-4: Moderate annular disc bulge and facet arthropathy. Moderate central canal stenosis, worse. Moderate to severe bilateral neuroforaminal narrowing, worse. L4-5: Moderate annular disc bulge and severe facet arthropathy. Moderate central canal stenosis, slightly worse. Moderate to severe bilateral neuroforaminal narrowing. L5-S1: Mild annular disc bulge with mild facet arthropathy. Moderate bilateral neuroforaminal narrowing. IMPRESSION: Severe degenerative changes, worse from prior. Reviewed, Interpreted and Dictated by Aury Velasco MD Transcribed by Desirae Peña Authenticated and [facility]
--- OUTSIDE RECORDS SUMMARY | 2025-02-22 09:44 | XMS_ITS | Encounter Summary ---
Author Organization Healthcare Address [address] [place] [address] Care Team Providers Care Primary Care Md Name Role Phone Cameron Geiger MD Primary Care Provider Barbara Disla Unavailable Willem Britt MD Primary Care Provider [phone] Encounter Details Date Type Department Care Team (Late st Contact Info) Description 12/21/2017 Orders Only External Location [address] [place] [address] Carroll Vanessa MD Social History Tobacco Use Types Packs/Day Years Used Date Smoking Tobacco: Never Assessed Sex and Gender Information Value Date Recorded Sex Assigned at Not on file Legal Sex Male 8:46 PM EDT Gender Identity Not on file Sexual Orientation Not on file documented as of this encounter Plan of Treatment Not on file documented as of this encounter Procedures Procedure Name Priority Date/Time Associated Diagnosis Comments MR OUTSIDE IMAGES 12/21/2017 9:57 AM EDT documented in this encounter Results * MR transfer of outside films (12/21/2017 9:57 AM EDT) Anatomical Region Laterality Modality Magnetic Resonan ce 12/21/2017 9:57 AM EDT us Carroll Vanessa MD IMG MRI PROCEDURES Final Result documented in this encounter Visit Diagnoses Not on filedocumented in this encounter Care Teams Primary Care Md Relationship Specialty Start Date End Date Cameron Geiger MD [address] [facility] [address] [place] [address] PCP - General 09/14/20 04/29/23 Willem Britt MD [address] [facility] [address] [place] [address] PCP - General Internal Medicine 04/30/23 Barbara Disla PA [address] [facility] [address] [place] [address] Physician Insurance Underwriter Neurology 12/10/20 documented as of this encounter
--- OUTSIDE RECORDS SUMMARY | 2025-02-22 09:44 | XMS_ITS | Encounter Summary ---
Author Organization Healthcare Address [address] [place] [address] Care Team Providers Care Rehabilitation Services Coordinator Name Role Phone Cameron Geiger MD Primary Care Provider [phone] Barbara Disla Unavailable Willem Britt MD Primary Care Provider [phone] Encounter Details Date Type Department Care Team (Late st Contact Info) Description 06/16/2017 Orders Only External Location [address] [place] [address] Provider, External Social History Tobacco Use Types Packs/Day Years [...] Procedure Name Priority Date/Time Associated Diagnosis Comments CT OUTSIDE IMAGES 06/16/2017 10:34 AM EST documented in this encounter Results * CT OUTSIDE IMAGES (06/16/2017 10:34 AM EST) Anatomical Region Laterality Modality Computed Tomogra phy 06/16/2017 10:3 4 AM EST us External Provider IMG CT PROCEDURES Final Result documented in this encounter Visit Diagnoses Not on filedocumented in this encounter Care Teams Rehabilitation Services Coordinator Relationship Specialty Start Date End Date Cameron Geiger MD [address] [facility] [address] [place] [address] PCP - General 09/14/20 04/29/23 Willem Britt MD [address] [place] [address] PCP - General Internal Medicine 04/30/23 Barbara Disla PA [address] [facility] [address] [place] [address] Physician Director Of Claims Neurology 12/10/20 documented as of this encounter
--- OUTSIDE RECORDS SUMMARY | 2025-02-22 09:44 | XMS_ITS | Encounter Summary ---
Author Organization Healthcare Address [address] [place] [address] Care Team Providers Care Refinery Superintendent Name Role Phone Barbara Disla Unavailable Willem Britt MD Primary Care Provider [phone] Encounter Details Date Type Department Care Team (Late st Contact Info) Description 01/26/2024 [facility] [address] [place] [address] Willem Britt MD [address] [place] [address] Social History Tobacco Use Types Packs/Day Years Used Date Smoking Tobacco: Never Smokeless Tobacco: Never Alcohol Use Standard Drinks/Week Comments Yes 0 (1 standard drink = 0.6 oz pure alcohol) Alcoholic Drinks/day: Occasional alcohol use Sex and Gender Information Value Date Recorded Sex Assigned at Not on file Legal Sex Male 8:46 PM EDT Gender Identity Not on file Sexual Orientation Not on file documented as of this encounter Plan of Treatment Not on file documented as of this encounter Visit Diagnoses Not on filedocumented in this encounter Additional Health Concerns Assessment Noted Time A fall risk assessment has been complete d for the patient 07/28/2023 1:48 PM EDT A Body Mass Index follow-up plan has been documented for the patient 07/29/2023 5:57 PM EDT documented as of this encounter Care Teams Refinery Superintendent Relationship Specialty Start Date End Date Willem Britt MD [address] [place] [address] PCP - General Internal Medicine 04/30/23 Barbara Disla PA [address] [facility] [address] [place] [address] Physician Educational Manager Neurology 12/10/20 documented as of this encounter
--- OUTSIDE RECORDS SUMMARY | 2025-02-22 09:44 | XMS_ITS | Encounter Summary ---
Author Organization Healthcare Address [address] [place] [address] Care Team Providers Care Volunteer Services Specialist Name Role Phone Cameron Geiger MD Primary Care Provider [phone] Barbara Disla Unavailable Willem Britt MD Primary Care Provider [phone] Encounter Details Date Type Department Care Team (Late st Contact Info) Description 12/14/2017 Orders Only External Location [address] [place] [address] Carroll Vanessa MD Social History Tobacco Use [...] Date/Time Associated Diagnosis Comments CT OUTSIDE IMAGES 12/14/2017 8:51 AM EDT documented in this encounter Results * CT OUTSIDE IMAGES (12/14/2017 8:51 AM EDT) Anatomical Region Laterality Modality Computed Tomogra phy 12/14/2017 8:51 AM EDT us Carroll Vanessa MD IMG CT PROCEDURES Final Result documented in this encounter Visit Diagnoses Not on filedocumented in this encounter Care Teams Volunteer Services Specialist Relationship Specialty Start Date End Date Cameron Geiger MD [address] [facility] [address] [place] [address] PCP - General 09/14/20 04/29/23 Willem Britt MD [address] [facility] [address] [place] [address] PCP - General Internal Medicine 04/30/23 Barbara Disla PA [address] [facility] [address] [place] [address] Physician Gas Cutter Neurology 12/10/20 documented as of this encounter
--- OUTSIDE RECORDS SUMMARY | 2025-02-22 09:44 | XMS_ITS | Clinical Summary ---
Author Organization [facility] Address [address] [place] [address] Care Team Providers Care Account Executive Software Sales Name Role Phone Barbara Disla Unavailable Willem Britt MD Primary Care Provider [phone] Allergies Active Allergy Reactions Criticality Noted Date Comments Metoprolol Shortness of breath High 06/11/2023 Morphine Unknown - Patient st ates they do not know rxn details Low 12/25/2011 'bad reaction' Nebivolol Hcl Shortness of breath High 06/11/2023 Penicillins Rash Low 06/18/2009 When as a child Medications levothyroxine (Synthroid, Levoxyl) 75 MCG tablet Take 75 mcg by mouth 1 (one) time each day. 9 Active pravastatin (Pravachol) 80 MG tablet Take 80 mg by mouth every night. 9 Active ibuprofen 600 MG tablet Take 600 mg by mouth every 6 (six) hours if needed. Active pancrelipase, Slq-Ivfu-Agaa, (Creon) 29499-004000 units capsule delayed-release particles capsule Take 2 capsules by mouth 3 (three) times a day with meals. 3 capsules with greasy meal, 1 capsule with snack PRN 1 Active fluticasone-magnolia meterol (Advair Diskus) 250-50 MCG/DOSE diskus inhaler Inhale 1 puff 2 (two) times a day if needed. Active aspirin 81 MG chewable tablet Chew 81 mg 1 (one) time each day. Active cyclobenzaprine (Flexeril) 5 MG tablet TAKE ONE TABLET BY MOUTH THREE TIMES DAILY MAY CAUSE DROWSINESS 4 Active lisinopril 5 MG tablet Take 1 tablet (5 mg) by mouth 1 (one) time each day. 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 Spell of altered cognition 04/09/2021 Pancreatic duct stones 07/13/2018 Abnormal MRI of head 03/15/2018 TIA (transient ischemic attack) 03/15/2018 Gall stones, common bile duct 02/01/2018 Biliary stones 02/01/2018 Chronic pancreatitis 01/15/2018 Degeneration, intervertebral disc, lumbar 2017 Lumbar facet arthropathy 06/18/2017 Immunizations Immunization Administration Dates Next Due Hep A, Adult 03/03/2018 Influenza, high-dose, quadrivalent 03/04/2020, Influenza, injectable, quadrivalent 04/03/2017 Moderna COVID-19 Vaccine (Sheet Metal Assembler) 12+ years 07/2020,05/08/2020 Pneumococcal Conjugate PCV 13 06/22/2017 Pneumococcal Polysaccharide PPV23 01/11/2018 Tdap 04/26/2019 Varicella Zoster Immune Globulin 12/19/2016 Social History Tobacco Use Types Packs/Day Years [...] on file Sexual Orientation Not on file Last Filed Vital Signs Vital Sign Reading Time Taken Comments Blood Pressure 112/72 07/28/2023 1:47 PM EDT Pulse 90 06/11/2023 9:50 AM EST Temperature 36.6 C (97.9 F) 04/11/2021 7:40 AM EST Respiratory Rate 18 04/11/2021 7:40 AM EST Oxygen Saturation 97% 06/11/2023 9:50 AM EST Inhaled Oxygen Concentration - - Weight 93 kg (205 lb) 07/28/2023 1:47 PM EDT Height 170.2 cm (5' 7 ) 07/28/2023 1:47 PM EDT Body Mass Index 32.11 07/28/2023 1:47 PM EDT Plan of Treatment Health Maintenance Due Date Last Done Comments [facility]-Depression Screening 1950 [facility]-Hepatitis C Screening 1950 [facility]-Medicare Annual Wellness (AWV) 1950 [facility]-Infant/Child/Adol SDOH Screenings 1950 [facility]- SDOH Screenings 1969 [facility]-Adult SDOH Screenings 1969 CT Colonography 02/14/1996 Colonoscopy 02/14/1996 FIT-DNA 02/14/1996 FIT 02/14/1996 FOBT 02/14/1996 Sigmoidoscopy 02/14/1996 [facility]-Colorectal Cancer Screening 02/14/1996 [facility]-RSV Vaccine: 60+ Years or (1 - Risk 60-74 years 1-dose series) 2011 NBS-UIXTX-50 Vaccine ( - season) 2025 01/09/2021, 06/06/2020, 05/08/2020 [facility]-Influenza Vaccine (#1) 01/02/202502/05, 03/04/2020, 01/28/2018, Additional history exists [facility]-DTaP,Tdap,and Td Vaccines (2 - Td or Tdap) 04/26/2029 04/26/2019 [facility]-Pneumococcal Vaccine: 50+ Years Completed 01/11/2018, 06/22/2017, 06/08/2017 [facility]-Hepatitis A Vaccines Aged Out 03/03/2018 No longer eligible based on patient's age to complete this topic [facility]-Zoster Vaccines Completed 04/12/2021, [facility]-Obesity Intervention Completed 07/28/2023, 12/2023 HPV Vaccines Aged Out No longer eligi ble based on patient's age to complete this topic [facility]-HIB Vaccines Aged Out No longer e ligible based on patient's age to complete this topic [facility]-IPV Vaccines Aged Out No longer e ligible based on patient's age to complete this topic [facility]-Rotavirus Vaccines Aged Out No lo nger eligible based on patient's age to complete this topic Insurance MEDICARE MEDICARE Care Teams Account Executive Software Sales Relationship Specialty Start Date End Date Willem Britt MD [address] [place] [address] PCP - General Internal Medicine 04/30/23 Barbara Disla PA [address] [facility] [address] [place] [address] Physician Door Serviceman Neurology 12/10/20
--- OUTSIDE RECORDS SUMMARY | 2025-02-22 09:45 | XMS_ITS | Encounter Summary ---
Author Organization Healthcare Address [address] [place] [address] Care Team Providers Care Hvac Operations Technician Name Role Phone Cameron Geiger MD Primary Care Provider [phone] Barbara Disla Unavailable Willem Britt MD Primary Care Provider [phone] Encounter Details Date Type Department Care Team (Late st Contact Info) Description 02/02/2019 Orders Only External Location [address] [place] [address] Carroll Vanessa MD Social History Tobacco Use [...] Date/Time Associated Diagnosis Comments CT OUTSIDE IMAGES 02/02/2019 10:49 AM EDT documented in this encounter Results * CT OUTSIDE IMAGES (02/02/2019 10:49 AM EDT) Anatomical Region Laterality Modality Computed Tomogra phy 02/02/2019 10:4 9 AM EDT us Carroll Vanessa MD IMG CT PROCEDURES Final Result documented in this encounter Visit Diagnoses Not on filedocumented in this encounter Care Teams Hvac Operations Technician Relationship Specialty Start Date End Date Cameron Geiger MD [address] [facility] [address] [place] [address] PCP - General 09/14/20 04/29/23 Willem Britt MD [address] [facility] [address] [place] [address] PCP - General Internal Medicine 04/30/23 Barbara Disla PA [address] [facility] [address] [place] [address] Physician Cover Machine Operator Neurology 12/10/20 documented as of this encounter
--- OUTSIDE RECORDS SUMMARY | 2025-02-22 09:45 | XMS_ITS | Encounter Summary ---
Author Organization Healthcare Address [address] [place] [address] Care Team Providers Care Sports Complex Attendant Name Role Phone Cameron Geiger MD Primary Care Provider [phone] Barbara Disla Unavailable Willem Britt MD Primary Care Provider [phone] Encounter Details Date Type Department Care Team (Late st Contact Info) Description 04/08/2023 Orders Only External Location [address] [place] [address] Provider, External Social History Tobacco Use Types [...] Date/Time Associated Diagnosis Comments MR OUTSIDE IMAGES 04/08/2023 10:18 AM EST documented in this encounter Results * MR transfer of outside films (04/08/2023 10:18 AM EST) Anatomical Region Laterality Modality Magnetic Resonan ce 04/08/2023 10:1 8 AM EST us External Provider IMG MRI PROCEDURES Final Resul t documented in this encounter Visit Diagnoses Not on filedocumented in this encounter Additional Health Concerns Assessment Noted Time A fall risk assessment has been complete d for the patient 12/10/2020 9:30 AM EDT documented as of this encounter Care Teams Sports Complex Attendant Relationship Specialty Start Date End Date Cameron Geiger MD [facility] [address] [place] [address] PCP - General 09/14/20 04/29/23 Willem Britt MD [facility] [address] [facility] [address] [place] [address] PCP - General Internal Medicine 04/30/23 Barbara Disla PA [address] [facility] [address] [place] [address] Physician Assistant Strength Coach Neurology 12/10/20 documented as of this encounter
--- OUTSIDE RECORDS SUMMARY | 2025-02-22 09:45 | XMS_ITS | Patient Health Record ---
Author Organization [facility] Address [address] [place] [address] Care Team Providers Care Continuum Of Care Manager Name Role Phone Willem Britt Primary Care Provider Willem Britt Unavailable Unavailable Jenna Hughes Unavailable [phone] Migration, Provider Unavailable Unavailable Allergies Allergen (clinical drug ingredient) Drug/Non Drug Allergy documented on EMR Reaction Allergy Type Onset Date Status nebivolol Bystolic breathing trouble Drug Allergy Active metoprolol Metoprolol breathing trouble Drug Allergy Active morphine Morphine Unknown Drug Allergy Active Penicillin Unknown Drug Allergy Active Results Component Value Reference Range Notes X ray : Spines, Cervical Reviewed date:07/07/2024 11:09:14 AM Interpretation: Performing Lab: Notes/Report: Medications Medication SIG (Take, Route, Frequency, Duration) Notes Start Date End Date Status Celecoxib 200 MG 1 cap(s) orally 2 times a day; Duration: 90 days prn Active Aspirin 81 MG 1 tab(s) chewed once a day; Duration: 90 days Active Lisinopril 5 MG Take 1 tablet by mouth once daily; Duration: 90 Active Pravastatin Sodium 80 MG Take 1 tablet by mouth once daily; Duration: 90 Active Creon [id number] UNIT TAKE 2 TO 4 CAPSULES BY MOUTH THREE TIMES DAILY WITH MEALS AND WITH SNACK TIME. MAX OF 10 CAPSULES A DAY; Duration: 30 Active Meclizine HCl 25 MG 1 tablet as needed Orally 3 times a day; Duration: 7 days As needed 11/14/2024 Active Vardenafil HCl 20 MG 1 tab(s) orally once a day; Duration: 30 days prn Active Fluticasone Propionate 50 MCG/ACT 2 sprays in each nostril once a day; Duration: 30 day(s) prn Active Albuterol Sulfate HFA 108 (90 Base) MCG/ACT 2 puff(s) inhaled every 6 hours; Duration: 30 days 09/10/2023 Active Advair Diskus 250 MCG-50 MCG 1 INH INHALED 2 TIMES A DAY; Duration: 90 DAYS prn *Please review and pick correct strength-formulati on from DuraFizz options. If intended option is not shown, discontinue and re-order from Quick Search* Active Cyclobenzaprine HCl 5 MG TAKE 1 TABLET BY MOUTH THREE TIMES DAILY NEEDED FOR 30 DAYS; Duration: 30 Active Levothyroxine Sodium 75 MCG 1 tab(s) orally once a day; Duration: 90 days Active predniSONE 20 MG take 3 tablets for 2 days, 2 tablets for 2 days and one tablet x 1 day orally once a day; Duration: 5 day(s) 02/09/2025 Active Tamsulosin HCl 0.4 MG Take 1 capsule by mouth once daily; Duration: 90 Active Immunizations Vaccine Route Administration Date Status Comme nts Boostrix IM Intramuscular 04/26/2019 Administered Fluvirin--Influenza vaccine 3+ year Unknown 03/09/2007 Administered Fluvirin--Influenza vaccine 3+ year IM Intramuscular 03/10/2008 Administered FLUZONE 6MO - OLDER IM Intramuscular 02/22/2020 Administer ed Fluzone High Dose IM Intramuscular 01/28/2018 Administered Pneumovax 23 IM Intramuscular 01/11/2018 Administered Prevnar PCV-13 (Pneumococcal conjugate 13) Unknown 06/08/2017 Administered Problems Problem Type SNOMED Code ICD Code Onset Dates Problem Status W/U Status Risk Notes Problem Mixed hyperlipidemia (885081357) Mixed hyperlipidemia (E78.2) Active confirmed Problem Hyperlipidemia (08939881) Other hyperlipidemia (E78.4) Active confirmed Problem Transient global amnesia (030680216) Transient global amnesia (G45.4) Active confirmed Problem Chronic pain (91028830) Other chronic pain (G89.29) Active confirmed Problem Chronic rhinitis (44055305) Chronic rhinitis (J31.0) Active confirmed Problem Chronic obstructive pulmonary disease (92317766) Chronic obstructive pulmonary disease, unspecified (J44.9) Active confirmed Problem Cervicalgia (06559134) Cervicalgia (M54.2) Active confirmed Problem Sciatica (69748323) Lumbago with sciatica, right side (M54.41) Active confirmed Problem Sciatica (42564424) Lumbago with sciatica, left side (M54.42) Active confirmed Problem Essential hypertension (70909930) Essential hypertension (I10) Active confirmed Problem Chronic airway obstruction (28367437) Chronic airway obstruction, not elsewhere classified (J44.9) Active confirmed Problem Acute exacerbation of chronic obstructive airways disease (471370279) COPD exacerbation (J44.1) Active confirmed Problem Androgen deficiency (71780570) Androgen deficiency (E29.1) Active confirmed Problem Memory loss (78411414) Memory loss (R41.3) Active confirmed Problem Acquired hypothyroidism (832219496) Acquired hypothyroidism (E03.9) Active confirmed Problem Unsteady gait (49952256) Unsteady gait (R26.81) Active confirmed Problem Rupture of right rotator cuff (76234164862621567) Rotator cuff syndrome, right (M75.101) Active confirmed Problem Idiopathic chronic pancreatitis (300861678) Idiopathic chronic pancreatitis (K86.1) Active confirmed Problem Transient ischemic attack (725050093) TIA (transient ischemic attack) (G45.9) Active confirmed Problem Gastroesophageal reflux disease (436386022) Acid reflux disease (K21.9) Active confirmed Problem Lower urinary tract symptoms due to benign prostatic hypertrophy (78179214211441) Benign prostatic hyperplasia with lower urinary tract symptoms (N40.1) Active confirmed Problem Lipoprotein above reference range (finding) (426131417) Elevated Lipoprotein(a) (E78.41) Active confirmed Problem Hyperlipidemia (37909371) Familial hyperlipidemia (E78.49) Active confirmed Vital Signs Heart Rate 76 /min 02/09/2025 Temperature 97.7 degrees Fahrenheit 02/09/2025 Blood pressure diastolic 76 mm Hg 02/09/2025 Height 5'6.5 in 02/09/2025 Blood pressure systolic 120 mm Hg 02/09/2025 Weight 186 lbs 02/09/2025 BMI 29.57 kg/m2 02/09/2025 Encounters Encounter Location Date Provider Diagnosis [facility] [address] [facility] [address] [place] [address] 08/06/2024 Provider Migration Essential hypertension I10 ; COPD exacerbation J44.1 and Familial hyperlipidemia E78.49 [facility] [address] [place], [place] [address] 05/21/2024 Willem Britt Impacted cerumen of right ear H61.21 and Cervicalgia M54.2 [place] [facility] [address] [address] 06/28/2024 Willem Lorenza Cervicalgia M54.2 an d Acute rhinitis J00 [place] [facility] [address] [address] 07/01/2024 Jenna McNees COPD exacerbation J44.1 [place] [facility] [address] [address] 11/14/2024 Jenna McArmidaes Vertigo R42 [facility] [address] [place] [address] 02/09/2025 Jenna McNees Lumbago with sciatic a, right side M54.41 ; Lumbago with sciatica, left side M54.42 and Other chronic pain G89.29 [place] [facility] [address] [address] 04/19/2024 Willem Lizetgeoffrey Acquired hypothyroidism E03.9 [place] [address] [address] 05/11/2024 Willem Besgeoffrey [place] [address] [address] 05/16/2024 Willem Besgeoffrey [place] [facility] [address] [address] 05/17/2024 Willem Britt Assessments Encounter Date Diagnosis (ICD Code) Assessment Notes Treatment Notes Treatment Clinical Notes Section Notes 04/19/2024 Acquired hypothyroidism (ICD-10 - E03.9) 06/28/2024 Cervicalgia (ICD-10 - M54.2) Plan will be to check x-rays. 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 He is willing to do the x-rays today. Will follow these personal 06/28/2024 Acute rhinitis (ICD-10 - J00) Recommended Afrin twice daily for 3 days only to get his nose open so that he can sleep better. Also recommended OTC Claritin-D 12-hour about 6 hours before he goes to sleep. He will monitor his blood pressure pulse carefully with this. Emphasized only doing the Afrin for 3 days and then taking a break. Steroid shot today to help with the swelling 08/06/2024 Essential hypertension (ICD-10 - I10) 08/06/2024 COPD exacerbation (ICD-10 - J44.1) 08/06/2024 Familial hyperlipidemia (ICD-10 - E78.49) 11/14/2024 Vertigo (ICD-10 - R42) Reassurance. Discussed vertigo and that it is a time limited condition. Explained vertigo exercises and advised to perform twice daily, once with eyes open and then again with eyes closed. FU in 1-2 weeks if no improvement of symptoms. Meclizine prn 02/09/2025 Lumbago with sciatica, right side (ICD-10 - M54.41) Long history of DDD and back pain with no radicular symptoms, Needs MRI to re-evaluate Rest, warm compresses, stretches and steroids as above 02/09/2025 Lumbago with sciatica, left side (ICD-10 - M54.42) 07/01/2024 COPD exacerbation (ICD-10 - J44.1) Discussed the etiology and expected course of COPD exac. Discussed the rationale for antibiotics and steroid use and the importance of completing the prescription as prescribed. Discussed supportive care. Discussed the signs and symptoms of worsening infection/respira tory distress that may indicate need for reassessment in clinic/ED. 05/21/2024 Cervicalgia (ICD-10 - M54.2) I reviewed MRI imaging from December. No evidence of mastoid inflammation in fact comment made that the mastoid was clear. Given patient's history it sounds like this is a an MSK issue and he does note that when he does some stretching exercises it seems to resolve it. I gave him detailed instructions on neck mobility exercises and resources and he will do this. 05/21/2024 Impacted cerumen of right ear (ICD-10 - H61.21) Personally performed procedure that Resolved patient's problem. Please note this increased the complexity of the visit given the visualization and skill required to remove the clog safely. Advised sweet oil and avoiding Q-tips in the future to reduce incidence of cerumen impaction. 02/09/2025 Other chronic pain (ICD-10 - G89.29) Plan Of Treatment Pending Test Test Name Order Date MRI : Lumbosacral Spine 02/09/2025 Physical Therapy 10/24/2014 H-CBC with AUTO DIFF 07/20/2013 H-VITAMIN B12 04/18/2014 H-CMP 04/18/2014 H-CMP 01/31/2014 H-CMP 07/06/2009 H-LIPID PANEL 07/06/2009 H-LIPID PANEL 01/31/2014 H-LIPID PANEL 04/18/2014 H-PSA SCREEN 01/31/2014 H-VIT D, 25-HYDROXY 04/18/2014 H-TESTOSTERONE 01/31/2014 H-TESTOSTERONE 04/18/2014 H-TESTOSTERONE 07/20/2013 M-Complete Blood Count Auto Diff 020 M-Complete Blood Count Man Dif 8 M-Comprehensive Metabolic Panel 02/18/20 20 M-Hemoglobin A1C 02/18/2020 M-Amylase 02/18/2020 M-Lipase 02/18/2020 M-Thyroid Stimulating Hormone 02/18/2020 M-CA 19-9 12/12/2023 Insurance Providers Payer Name Payer Address Payer Phone Subscriber Number Group Number Insured Name Patient Relationship to Insured Coverage Start Date Coverage End Date [place] [address] [place] [address] [id number] Julio César Stuart Self - patient is the insured [employer] [address] [place] [address] ACL Julio César Stuart Self - patient is the insured Medications Administered Medication Instructions Date of Administration Dosage Notes Dexamethasone 4mg Injection 02/08/2022 4 mg Dexamethasone 4mg Injection 09/10/2023 4 mg Dexamethasone 4mg Injection 06/28/2024 4 mg Kenalog 03/01/2014 1 mL Medical (General) History Medical History History ICD Code Asthma with COPD Migraines GERD COPD Hyperlipidemia Hypogonadism HTN Chest pain 786.50 sleep apnea Surgical History Surgery Date(Month/Year) Foot surgery-achilles tendon repair rt f oot 2001 surgery on rt eye-retina cataract removal-rt eye colonoscopy 10/2017 cholecystectomy left hand fx repair pancretic stone 2017 Hospitalization History Reason Date(Month/Year) Pancreatitis 1998
== END 2025-02-22 23:59 | disposition home or self-care (01) ==
LOC: RAD 09:42
PROVIDERS: PCP Internal Medicine Adolescent Medicine; Visit Provider Nurse Practitioner Family
DX: M47.26 Other spondylosis with radiculopathy, lumbar region (principal); M47.27 Other spondylosis with radiculopathy, lumbosacral region
CPT/HCPCS: 72148